=== PATIENT | male | born 2000 | race Caucasian/White ===

== ENCOUNTER 2024-10-28 18:25 | Emergency (ER) | payer OTHER, SELFPAY ==
[2024-10-28 18:26] VITALS: BP 121/66; PULSE 90; RESP 18; TEMP 36.2; O2SAT 100
--- NOTE | 2024-10-28 19:05 | RAD_ITS ---
PROCEDURE: FOOT MIN 3 VIEWS 10/28/2024 REASON FOR EXAM: LAC, BOTTOM OF FOOT TECHNIQUE: FOOT MIN 3 VIEWS COMPARISON: None. FINDINGS: Bones: No visible fracture. No suspicious bone lesion. Joints: Normal alignment. Joint spaces preserved. No arthropathic features. Soft tissues: Mildsoft tissue swelling along the dorsum of the foot. Other: There are two punctate radiopaque densities along the dorsum of the foot, visualized only on the lateral radiograph. RAD/Foot min 3 Views IMPRESSION: Two punctate radiopaque densities along the dorsum of the foot, visualized only on the lateral radiograph. Correlation with physical examination recommended. Reading Location: [id number]
--- NOTE | 2024-10-28 19:22 | EX.ED.DYSGE1 ---
HPI History of Present Illness Chief Complaint: Laceration Narrative Narrative: Patient is a 24-year-old male who has no known significant past medical history who presents to the emergency department the chief complaint of cut to the bottom of his left foot. Patient states that [place] he [place] and cut his foot on an unknown object. They noted that he had significant of blood in his sandal therefore he came here for further evaluation management. Per patient his last tetanus shot was updated about a year ago. Patient states that he has having foot pain but denies any other injuries. PFSH PFSH Home Medications ?Medication ?Instructions ?Recorded ?Last Taken ?Type clindamycin HCl 300 mg capsule 300 mg PO TID 7 days #21 caps 10/28/24 Unknown Rx (Cleocin HCl) Allergy/AdvReac Type Severity Reaction Status Date / Time No Known Allergies Allergy Verified 10/28/24 18:25 Social History Smoking Status: Never smoker ROS ROS ED ROS Narrative Neurological: Denies any numbness, weakness, tingling Musculoskeletal: Complains of left foot pain as noted above Skin: Complains of cut to the bottom of the left foot as noted above EXAM Physical Exam Narrative Exam Narrative: General: Patient was lying in bed rest comfortably did not appear to be acute distress Head: Atraumatic, normocephalic Eyes: PERRL bilaterally, EOMI by, no conjunctival injection noted Neck: Soft, supple, trachea midline Cardiovascular: Regular rate Extremities: DP pulses +2/4 in the bilateral lower extremities, +5/5 strength noted in the bilateral upper and lower extremities Neurological: Patient follow commands knew that he was at [facility] year is 2024 sensation grossly intact in the bilateral lower extremities Skin: Patient has a proximately 4-1/2 cm laceration to the plantar aspect of his left foot no active bleeding noted Const Vital Signs: 10/28/24 18:26 10/28/24 20:25 Temperature 97.2 F L Temperature Source Temporal Pulse Rate 90 70 Respiratory Rate 18 18 Blood Pressure 121/66 H 110/80 Blood Pressure Mean 84 90 Pulse Ox 100 98 Oxygen Delivery Method Room Air MDM MDM MDM Narrative Medical decision making narrative: Patient is a 24-year-old male who presented to the emergency department the chief complaint of laceration to the bottom of the left foot. On the differential diagnosis includes but not limited to foot laceration, retained foreign body, skin abrasion. Once workup is obtained reviewed he will be reevaluated. Patient be given 2 g Ancef morphine Zofran as well as IV fluids. Patient's foot x-ray reviewed by myself by radiology showed 2 punctate radiographic densities along the dorsum of the foot visualized only on the lateral radiograph correlation with physical examination recommended patient does not have any injury to the dorsal aspect of his foot the laceration is on the plantar aspect. Patient had a laceration repaired here in the emergency department see procedure note for separate details tolerated procedure well. He will be placed on oral clindamycin prescription will be sent to the pharmacy as he was given Ancef in the emergency department. He was advised to watch out for signs of infection and is advised to not soak this wound he is advised to not go any lakes or [place]. He will be given crutches to stay off the foot. He was encouraged to have the sutures removed in approximately 10 days by his primary care physician. He is agreeable spinal cord concerns answered he is discharged home in stable condition. Procedure note Procedure name: Laceration repair Indication: Reduce risk of infection Location: 4-1/2 cm simple laceration along the plantar aspect of left foot Preprocedure diagnosis: Laceration Postprocedure diagnosis: Repaired laceration Informed consent was obtained prior to procedure started. Procedure: The appropriate timeout was taken. The area was prepped and draped in usual sterile fashion. Local anesthesia was achieved using 7 cc of lidocaine 1% without epinephrine. Wound was copiously irrigated. 10 4-0 Ethilon interrupted sutures were placed. Estimated blood loss was less than 0.5 mL. Dressing was applied to the area and anticipatory guidance, as well as standard postprocedure care was explained. Return precautions are given. Patient tolerated procedure well without any complications. Follow-up visit for suture removal and evaluation of laceration. Radiography Diagnostic Testing: Clinical Impression(s) from Imaging Studies Foot X-Ray 10/28/24 19:05 IMPRESSION: Two punctate radiopaque densities along the dorsum of the foot, visualized only on the lateral radiograph. Correlation with physical examination recommended. Reading Location: [id number] Discharge Plan Triage Chief Complaint: Laceration ED Provider: Lance Moore Dx/Rx/DC Orders Clinical Impression: Laceration of foot, left Prescriptions: New clindamycin HCl [Cleocin HCl] 300 mg capsule 300 mg PO TID 7 Days Qty: 21 0RF Primary Care Provider: Merissa Hidalgo,Out of Referrals: Merissa Hidalgo,Out of [Primary Care Provider] - Activity Restrictions/Additional Instructions: Have your sutures removed by your primary care physician in approximately 7 to 10 days. Watch out for signs of infection. Do not soak the sutures no lakes no pools. Take antibiotics as prescribed. Return with worsening symptoms or concerns Print Language: [place] Disposition Disposition: Home, Self Care
--- OUTSIDE RECORDS SUMMARY | 2024-10-28 19:22 | XMS RPT_ITS | CCD ---
Author Organization [facility] Care Team Providers Care Wire Galvanizer Name Role Phone Jose Miguel Davison Primary Care Provider Unavailable Primary Care Provider UnavailLELA Cox Admitting Unavailable DONNIE SWAN Unavailable JUJU ROBLES Attending Unavailable Ibis Gao MD Primary Care Provider CATHY ORR Attending Unavailable IBIS GAO Primary Care Unavailable IBIS GAO Primary Care Unavailable IBIS GAO Primary Care Unavailable Medications Current Medications Medication Drug Class(es) Dates Sig (Normalized) Sig (Original) 24 hr amphetamine aspartate 5 mg / amphetamine sulfate 5 mg / dextroamphetamine saccharate 5 mg / dextroamphetamine sulfate 5 mg extended release oral capsule (5 sources) Central Nervous System Stimulant Start: 06-28-2023 take 1 capsule by mouth once daily in the morning, then take 1 capsule by mouth every twenty-four hours amphetamine-dext roamphetamine XR (Adderall XR) 20 MG 24 hr capsule Take 20 mg by mouth every morning. 0 06/28/2023 Active Start: 08-16-2021 End: 09-11-2021 take 1 capsule by mouth once daily amphetamine-dextroamphetamine XR (ADDERA LL XR) 25 mg 24 hr capsule Indications: ADHD (attention deficit hyperactivity disorder), combined type Take 1 capsule by mouth once daily for 30 days. Do not start before August 16, 2021. 30 capsule 0 08/16/2021 09/11/2021 Discontinued Start: 07-17-2021 End: 08-16-2021 take 1 capsule by mouth once daily amphetamine-dextroamphetamine XR (ADDERA LL XR) 20 mg 24 hr capsule Indications: ADHD (attention deficit hyperactivity disorder), combined type Take 1 capsule by mouth once daily for 30 days. 30 capsule 0 07/17/2021 08/16/2021 Active Comment on above: Take 1 capsule by [facility] once daily for 30 days. Take 1 capsule by [facility] once daily for 30 days. Do not start before August 16, 2021. cephalexin 500 mg oral capsule (4 sources) Cephalosporin Antibacterial Start: End: take 2 capsules by mouth every eight hours cephalexin (Keflex) 500 MG capsule Take 2 capsules (1,000 mg) by mouth in the morning and 2 capsules (1,000 mg) at noon and 2 capsules (1,000 mg) before bedtime. Do all this for 25 days. 150 capsule 0 09/14/2023 10/09/2023 Active Start: 09-14-2023 End: 09-14-2023 cephalexin (Keflex) capsule 1,000 mg mupirocin 0.02 mg/mg topical ointment (5 sources) RNA Synthetase Inhibitor Antibacterial Start: 08-21-2022 mupirocin (BACTROBAN) 2 % ointment Indications: Sunburn Apply 1 application to affected area three times daily. 30 g 08/21/2022 Active Comment on above: Apply 1 application to affected area three times daily. oxyCODONE hydrochloride 5 mg oral tablet (4 sources) Opioid Agonist Start: 09-14-2023 End: 09-17-2023 take 1 tablet by mouth every six hours as needed for pain oxyCODONE (Roxicodone) 5 MG immediate release tablet Indications: Tenosynovitis Take 1 tablet (5 mg) by mouth every 6 hours as needed for severe pain (7-10) for up to 3 days. 12 tablet 0 09/14/2023 09/17/2023 Active Start: 09-14-2023 End: 09-14-2023 take 1 tablet by mouth every six hours as needed for pain oxyCODONE (Roxicodone) immediate release tablet 2.5 mg polyethylene glycol 3350 15583 mg powder for oral solution (4 sources) Osmotic Laxative Start: 09-11-2023 End: 09-14-2023 take 17 g by mouth every twenty-four hours as needed polyethylene glycol, PEG, 3350 (Glycolax) 17 GM/SCOOP powder Take 17 g by mouth Daily as needed (constipation). 238 g 0 09/14/2023 Active sulfamethoxazole 800 mg / trimethoprim 160 mg oral tablet (1 source) Dihydrofolate Reductase Inhibitor Antibacterial, Sulfonamide Antimicrobial take 1 tablet by mouth twice daily sulfamethoxazole-tr imethoprim (BACTRIM DS) 800-160 mg per tablet Take 1 tablet by mouth two times a day. Active Completed/Discontinued Medications Medication Drug Class(es) Dates Sig (Normalized) Sig (Original) acetaminophen 500 mg oral tablet (4 sources) Start: 09-12-2023 End: 09-14-2023 take 1 tablet by mouth every eight hours acetaminophen (Tylenol) tablet 1,000 mg Start: 09-11-2023 End: 09-12-2023 take 1 tablet by mouth every six hours as needed for pain and fever 650 mg, Oral, Every 6 hours PRN, mild pain (1-3), fever, For temp greater than 100.4 F (38 C), Starting on 09/11/23 at 1909, Maximum dose of acetaminophen is 4000 mg from all sources in 24 hours. ampicillin-sulbactam (Unasyn) 3,000 mg in sodium chloride 0.9 % 100 mL IVPB (Add-Nazareth) (2 sources) Start: 09-11-2023 End: 09-11-2023 ampicillin-sulbactam (Unasyn) 3,000 mg in sodium chloride 0.9 % 100 mL IVPB (Add-Nazareth) dicyclomine hydrochloride 20 mg oral tablet (17 sources) Anticholinergic Start: 08-28-2021 take 1 tablet by mouth at bedtime dicyclomine (BENTYL) 20 mg tablet Indications: Abdominal pain, unspecified abdominal location , Nausea and vomiting, unspecified vomiting type Take 1 tablet by mouth before meals and at bedtime. 90 tablet 0 08/28/2021 Active Start: 05-29-2021 End: 08-28-2021 take 1 capsule by mouth at bedtime dicyclomine (BENTYL) 10 mg capsule Indications: Nausea and vomiting, unspecified vomiting type , Abdominal pain, unspecified abdominal location Take 1 capsule by mouth before meals and at bedtime. 90 capsule 0 05/29/2021 08/28/2021 Discontinued Comment on above: Take 1 capsule by mo uth before meals and at bedtime. Take 1 tablet by nirav th before meals and at bedtime. 0.4 ml enoxaparin sodium 100 mg/ml prefilled syringe (2 sources) Low Molecular Weight Heparin Start: End: inject 40 mg by subcutaneous injection every twenty-four hours 40 mg, SubCUTAneous, Every 24 hours scheduled (Daily), First dose on 09/11/23 at 2000, Indication of Use: Prophylaxis-DVT/PE, Indications: Prophylaxis of Venous Thromboembolism 2 ml fentaNYL 0.05 mg/ml injection (2 sources) Opioid Agonist Start: End: fentaNYL (Sublimaze) injection 50 mcg 1 ml HYDROmorphone hydrochloride 1 mg/ml cartridge (8 sources) Opioid Agonist Start: End: take 0.25 mg intravenously every eight hours as needed HYDROmorphone (Dilaudid) injection 0.25 mg Start: 09-11-2023 End: 09-13-2023 HYDROmorphone (Dilaudid) inj ection 0.5 mg ibuprofen 600 mg oral tablet (2 sources) Nonsteroidal Anti-inflammatory Drug Start: 09-12-2023 End: 09-14-2023 take 1 tablet by mouth every eight hours as needed for pain ibuprofen tablet 600 mg melatonin 10 mg oral capsule (4 sources) melatonin 10 mg cap Take by mouth. 0 Active Comment on above: Take by mouth. mirtazapine 15 mg oral tablet (18 sources) Start: 11-18-2021 take 1 tablet by mouth once daily at bedtime mirtazapine (REMERON) 15 mg tablet Indications: Chronic insomnia TAKE 1 TABLET BY MOUTH DAILY AT BEDTIME 30 tablet 0 11/18/2021 Active Start: 03-26-2021 End: 10-15-2021 take 1 tablet by mouth once daily at bedtime mirtazapine (REMERON) 15 mg tablet Indications: Chronic insomnia Take 1 tablet by mouth daily at bedtime. 30 tablet 0 10/15/2021 Active Comment on above: Take 1 tablet by nirav th daily at bedtime. TAKE 1 TABLET BY NIRAV TH DAILY AT BEDTIME 1 ml morphine sulfate 4 mg/ml cartridge (2 sources) Opioid Agonist Start: 09-11-19 End: 09-11-19 morphine injection 4 mg 1 ml naloxone hydrochloride 0.4 mg/ml injection (2 sources) Opioid Antagonist Start: 09-11-19 End: 09-14-19 naloxone (Narcan) injection 0.4 mg naproxen 500 mg oral tablet (4 sources) Nonsteroidal Anti-inflammatory Drug Start: 08-22-19 take 1 tablet by mouth twice daily at mealtime naproxen (NAPROSYN) 500 mg tablet Indications: Sunburn Take 1 tablet by mouth twice daily with meals. 30 tablet 1 08/21/2022 Active Comment on above: Take 1 tablet by nirav th twice daily with meals. 2 ml ondansetron 2 mg/ml injection (15 sources) Serotonin-3 Receptor Antagonist Start: 09-11-19 End: 09-11-19 ondansetron (Zofran) injection 4 mg Start: 09-11-2021 take 1 tablet by nirav th every eight hours as needed ondansetron orally disintegrating (ZOFRAN ODT) 4 mg disintegrating tablet Take 1 tablet by mouth every 8 hours as needed for nausea/vomiting. 30 tablet 0 09/11/2021 Active Comment on above: Take 1 tablet by nirav th every 8 hours as needed for nausea/vomiting. ondansetron ODT (Zofran-ODT) disintegrating tablet 4 mg (2 sources) Start: 2023 End: 2023 take 1 tablet by mouth every eight hours as needed for nausea and vomiting ondansetron ODT (Zofran-ODT) disintegrating tablet 4 mg piperacillin 3000 mg / tazobactam 375 mg injection (2 sources) Penicillin-class Antibacterial, beta Lactamase Inhibitor Start: 2023 End: 2023 take 3375 mg intravenously every eight hours piperacillin-tazoba ctam (Zosyn) IVPB 3,375 mg potassium chloride 20 meq powder for oral solution (2 sources) Start: 2023 End: 2023 potassium chloride (Klor-Con) packet 40 mEq Start: 09-13-2023 End: 09-13-2023 potassium chloride (Klor-Con ) packet 40 mEq Problems Active Problems Problem Classification Problem Date Documented Da te Episodic/Chronic Headache; including migraine (1 source) Headache; Translations: [Headache, unspecified headache type] Episodic Miscellaneous mental health disorders (2 sources) Chronic insomnia; Translations: [Psychophysiologic insomnia] Chronic Nutritional deficiencies (17 sources) Deficiency of macronutrients; Translations: [Unspecified severe protein-calorie malnutrition] Onset: 01-03-2021 01-03-2021 Chronic Other connective tissue disease (1 source) Pain in right hand; Translations: [Pain in right hand] Episodic Other connective tissue disease (6 sources) Tenosynovitis; Translations: [Synovitis and tenosynovitis, unspecified] Onset: 09-11-2023 09-11-2023 Episodic Other connective tissue disease (2 sources) Synovitis and tenosynovitis, unspecified; Translations: [Synovitis and tenosynovitis, unspecified] Onset: 09-11-2023 Episodic Other inflammatory condition of skin (1 source) Solar erythema; Translations: [Sunburn, unspecified] Episodic Other injuries and conditions due to external causes (1 source) Injury of head; Translations: [Unspecified injury of head, initial encounter] Episodic Other injuries and conditions due to external causes (1 source) Injury of right hand; Translations: [Unspecified injury of right wrist, hand and finger(s), initial encounter] Episodic Other nutritional; endocrine; and metabolic disorders (17 sources) Hyperbilirubinemia; Translations: [Other disorders of bilirubin metabolism] Onset: 01-02-2021 01-02-2021 Chronic Residual codes; unclassified (4 sources) Other specified health status; Translations: [Other specified conditions influencing health status] Onset: 09-11-2023 09-11-2023 Episodic Unclassified (1 source) OPENED IN ERROR Past or Other Problems Problem Classification Problem Date Documented Da te Episodic/Chronic Abdominal pain (18 sources) Epigastric pain; Translations: [Epigastric pain] Onset: 11-22-2020 11-22-2020 Episodic Fracture of upper limb (13 sources) Closed fracture of neck of fifth metacarpal bone; Translations: [Nondisplaced fracture of neck of fifth metacarpal bone, right hand, initial encounter for closed fracture] Onset: 10-22-2021 Episodic Gastritis and duodenitis (17 sources) Gastritis; Translations: [Gastritis, unspecified, without bleeding] Onset: 01-03-2021 01-03-2021 Episodic Heart valve disorders (17 sources) Heart murmur; Translations: [Cardiac murmur, unspecified] Onset: 11-06-2010 01-12-2020 Episodic Nausea and vomiting (19 sources) Nausea and vomiting; Translations: [Nausea with vomiting, unspecified] Onset: 01-03-2021 01-03-2021 Episodic Other connective tissue disease (1 source) Hand pain Onset: 12-19-2023 Episodic Other eye disorders (5 sources) Convergence insufficiency; Translations: [Convergence insufficiency] Onset: 05-09-2019 08-21-2022 Episodic Skin and subcutaneous tissue infections (5 sources) Cellulitis of finger; Translations: [Cellulitis of right finger] Onset: 09-10-2023 09-11-2023 Episodic Results Test Name Value Interpretation Reference Range Facility XR CHEST 2V FRONTAL/LATon XR CHEST 2V FRONTAL/LAT * * *Final Report* * * DATE OF EXAM: May 04 2024 1:11PM [id number] - XR CHEST 2V FRONTAL/LAT / PROCEDURE REASON: R05.1 * * * * Physician Interpretation * * * * EXAMINATION: CHEST RADIOGRAPH (2 VIEW FRONTAL and LATERAL) CLINICAL HISTORY: Midsternal chest pain. MQ: XC2_6 EXAM DATE/TIME: 05/04/2024 1:11 PM COMPARISON: No relevant prior studies available. RESULT: Lines, tubes, and devices: None. Lungs and pleura: No consolidation. No lung mass. No pleural effusion. No pneumothorax. Cardiomediastinal silhouette: Normal cardiomediastinal silhouette. Bones and soft tissues: Unremarkable. IMPRESSION: No acute radiographic abnormality. New Product Trainer: FORREST Transcribe Date/Time: May 04 2024 1:24P Dictated by : ANNE MARIE GIRON MD This examination was interpreted and the report reviewed and electronically signed by: ANNE MARIE GIRON MD on May 04 2024 1:26PM EST [id number] Normal [facility] XR Chest PA and Lateralon IMPRESSION: No acute radiographic abnormality. New Product Trainer: FORREST Transcribe Date/Time: May 04 2024 1:24P Dictated by : ANNE MARIE GIRON MD This examination was interpreted and the report reviewed and electronically signed by: ANNE MARIE GIRON MD on May 04 2024 1:26PM EST [facility] * * *Final Report* * * DATE OF EXAM: May 04 2024 1:11PM [id number] - XR CHEST 2V FRONTAL/LAT / PROCEDURE REASON: R05.1 * * * * Physician Interpretation * * * * EXAMINATION: CHEST RADIOGRAPH (2 VIEW FRONTAL & LATERAL) CLINICAL HISTORY: Midsternal chest pain. MQ: XC2_6 EXAM DATE/TIME: 05/04/2024 1:11 PM COMPARISON: No relevant prior studies available. RESULT: Lines, tubes, and devices: None. Lungs and pleura: No consolidation. No lung mass. No pleural effusion. No pneumothorax. Cardiomediastinal silhouette: Normal cardiomediastinal silhouette. Bones and soft tissues: Unremarkable. [facility] Provider, Ray Hollins [facility] - 05/04/2024 * * *Final Report* * * DATE OF EXAM: May 04 2024 1:11PM [id number] - XR CHEST 2V FRONTAL/LAT / PROCEDURE REASON: R05.1 * * * * Physician Interpretation * * * * EXAMINATION: CHEST RADIOGRAPH (2 VIEW FRONTAL & LATERAL) CLINICAL HISTORY: Midsternal chest pain. MQ: XC2_6 EXAM DATE/TIME: 05/04/2024 1:11 PM COMPARISON: No relevant prior studies available. RESULT: Lines, tubes, and devices: None. Lungs and pleura: No consolidation. No lung mass. No pleural effusion. No pneumothorax. Cardiomediastinal silhouette: Normal cardiomediastinal silhouette. Bones and soft tissues: Unremarkable. IMPRESSION IMPRESSION: No acute radiographic abnormality. New Product Trainer: PSCB Transcribe Date/Time: May 04 2024 1:24P Dictated by : ANNE MARIE GIRON MD This examination was interpreted and the report reviewed and electronically signed by: ANNE MARIE GIRON MD on May 04 2024 1:26PM EST [facility] Radiology Study observation (narrative) [facility] XR Chest PA and LateralOrder ed By: Cc Provider on 05-04-2024 [facility] ED NOTEon 12-19-2023 ED NOTE HNO ID: [id number] Author: EMILIANO MICHEL RN Service: Emergency Medicine Author Type: Registered Nurse Type: ED Notes Filed: 12/19/2023 13:51 Note Text: XR notified Normal [facility] ED PROV NOTEon 12-19-2023 ED PROV NOTE HNO ID: [id number] Author: PATY SANDOVAL APRN.HOLGER Service: Emergency Medicine Author Type: Nurse Practitioner Type: ED Provider Notes Filed: 12/20/2023 21:06 Note Text: ED Provider Note Patient Name: Christian Danielson : 2000 SERVICE DATE: 12/19/23 History Patient presents with: Hand Pain: Pt arrives to triage, reports he tripped olvin dog and landed on right hand. Pt c/o wrist pain and thumb pain. Patient is a 23-year-old male presented to ED with complaints of right hand pain. He states he tripped over his small dog and landed backwards with a closed fist into the ground. He complains of wrist and thumb pain. He notes swelling. Hurts with range of motion. No prior treatment. He is ambidextrous. 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 pylori infection No date: Insomnia PAST SURGICAL HISTORY No date: TONSILLECTOMY HX FAMILY HISTORY Adopted: Yes Problem Relation Age of Onset No Known Problems Mother No Known Problems Father No Known Problems Brother No Known Problems Brother No Known Problems Maternal Grandmother No Known Problems Maternal Grandfather No Known Problems Paternal Grandmother No Known Problems Paternal Grandfather Social History Tobacco Use Smoking status: Never Smokeless tobacco: Never Vaping Use Vaping status: Former Substances: Nicotine Devices: Disposable Substance and Sexual Activity Alcohol use: Not Currently Drug use: Not Currently Types: Marijuana Comment: stopped 04/24/21 Sexual activity: Not Currently ALLERGIES No Known Allergies Review of Systems All other systems reviewed and are negative. Physical Exam Vitals [12/19/23 1321] BP Pulse Temp Temp src Resp SpO2 Weight Height 131/80 (!) 108 36.8 ?C (98.2 ?F) Oral 20 99 % 72.6 kg (160 lb) 1.88 m (6' 2) Physical Exam Vitals and nursing note reviewed. Constitutional: Appearance: Normal appearance. HENT: Head: Normocephalic and atraumatic. Nose: Nose normal. Mouth/Throat: Mouth: Mucous membranes are moist. Eyes: General: No scleral icterus. Cardiovascular: Rate and Rhythm: Normal rate. Pulmonary: Effort: Pulmonary effort is normal. No respiratory distress. Abdominal: General: There is no distension. Musculoskeletal: General: Normal range of motion. Cervical back: Normal range of motion and neck supple. Comments: Soft tissue swelling with mild tenderness to the proximal fourth and fifth carpals. There is no scaphoid tenderness. Normal pronation and supination. Strong radial pulse. Skin: General: Skin is warm and dry. Capillary Refill: Capillary refill takes less than 2 seconds. Neurological: Mental Status: He is alert and oriented to person, place, and time. Psychiatric: Mood and Affect: Mood normal. Diagnostic Testing ED Labs Ordered and Reviewed - No data to display Procedures ED Course / Clinical Impression ED Course as of 12/19/23 1443 Paty Sandoval's Documentation Sun Dec 19, 2023 1436 XR HAND GENERAL 3V PA/LAT/OBL RT FINDINGS: Since the previous exam, there is amputation at the tip of the second digit. This is of uncertain age and clinical correlation is suggested. Also at the distal phalanx of the second digit, there is a thin vertical lucency which is possibly a nondisplaced fracture or accentuated trabecular lines. No fractures or dislocations are seen otherwise. Clinical Impressions as of 12/19/23 1443 Sprain of right wrist, initial encounter MDM / Disposition / Plan Patient is a 23-year-old male presenting here with right hand and wrist pain. Had a fall injuring the hand. Has some soft tissue swelling at the base of the fourth and fifth met of carpals. Otherwise an atraumatic exam. X-rays are negative for any acute fractures or dislocations in this area. There is some areas of erosive changes to the tip of the second finger. Patient had a prior infection here that required surgery. SIGNATURE: Paty Sandoval, RAIL SWITCH OPERATOR.PEN MAKER - PATY SANDOVAL 12/20/23 2106 Normal [facility] XR HAND 3V PA/LAT/OBL RTon 0 12-19-2023 XR HAND 3V PA/LAT/OBL RT * * *Final Report* * * DATE OF EXAM: Dec 19 2023 1:56PM [id number] - XR HAND 3V PA/LAT/OBL RT / PROCEDURE REASON: Trauma * * * * Physician Interpretation * * * * EXAM TITLE: XR HAND 3V PA/LAT/OBL RT, XR WRIST 4V PA/LAT/OBL/SCAPH RT DATE: 12/19/2023 2:24 PM INDICATION: Trauma with hand and wrist pain COMPARISON: 11/19/2021 FINDINGS: Since the previous exam, there is amputation at the tip of the second digit. This is of uncertain age and clinical correlation is suggested. Also at the distal phalanx of the second digit, there is a thin vertical lucency which is possibly a nondisplaced fracture or accentuated trabecular lines. No fractures or dislocations are seen otherwise. IMPRESSION: Second digit changes which are of unknown age but correlation with clinical information is suggested. New Product Trainer: FORREST Transcribe Date/Time: Dec 19 2023 2:24P Dictated by : TIANA MCCOY MD This examination was interpreted and the report reviewed and electronically signed by: TIANA MCCOY MD on Dec 19 2023 2:26PM EST [id number] Normal [facility] XR WRIST 4V PA/LAT/OBL/SCAPH RTon 12-19-2023 XR WRIST 4V PA/LAT/OBL/SCAPH RT * * *Final Report* * * DATE OF EXAM: Dec 19 2023 1:56PM [id number] - XR WRIST 4V PA/LAT/OBL/SCAPH RT / PROCEDURE REASON: Trauma * * * * Physician Interpretation * * * * EXAM TITLE: XR HAND 3V PA/LAT/OBL RT, XR WRIST 4V PA/LAT/OBL/SCAPH RT DATE: 12/19/2023 2:24 PM INDICATION: Trauma with hand and wrist pain COMPARISON: 11/19/2021 FINDINGS: Since the previous exam, there is amputation at the tip of the second digit. This is of uncertain age and clinical correlation is suggested. Also at the distal phalanx of the second digit, there is a thin vertical lucency which is possibly a nondisplaced fracture or accentuated trabecular lines. No fractures or dislocations are seen otherwise. IMPRESSION: Second digit changes which are of unknown age but correlation with clinical information is suggested. New Product Trainer: FORREST Transcribe Date/Time: Dec 19 2023 2:24P Dictated by : TIANA MCCOY MD This examination was interpreted and the report reviewed and electronically signed by: TIANA MCCOY MD on Dec 19 2023 2:26PM EST [id number] Normal [facility] BASIC METABOLIC PANELon 05-1 Anion gap [Moles/Vol] 12 mmol/L Normal 3-13 [facility] Comment on above: Performed By: #### L AB15 ####Product Development: MARCELINA GIBBS ([id number])[facility])[address] [place] [address] Calcium [Mass/Vol] 9.7 mg/dL Normal 8.4-10.4 [facility] Comment on above: Performed By: #### L AB15 ####Product Development: MARCELINA GIBBS ([id number])[facility] ([facility])[address] [place] [address] Chloride [Moles/Vol] 105 mmol/L Normal 98-107 [facility] Comment on above: Performed By: #### L AB15 ####Product Development: MARCELINA GIBBS ([id number])[facility] ([facility])[address] [place] [address] CO2 [Moles/Vol] 22 mmol/L Normal 22-30 [facility] Comment on above: Performed By: #### L AB15 ####Product Development: MARCELINA GIBBS ([id number])[facility])[address] [place] [address] Creatinine [Mass/Vol] 0.93 mg/dL Normal 0.66-1.25 [facility] Comment on above: Performed By: #### L AB15 ####Product Development: MARCELINA GIBBS ([id number])[facility])[address] [place] [address] GLOMERULAR FILTRATION RATE ML/MIN/1.73 SQ M.PREDICTED >90.0 Normal >60.0 [facility] Comment on above: Result Comment: Calc ulation based on the Chronic Kidney Disease Epidemiology Collaboration (CKD-EPI) equation refit without adjustment for race Performed By: #### L AB15 ####Product Development: MARCELINA GIBBS ([id number])[facility] ([facility])[address] [place] [address] Glucose [Mass/Vol] 87 mg/dL Normal 70-100 [facility] Comment on above: Performed By: #### L AB15 ####Product Development: MARCELINA GIBBS ([id number])[facility] ([facility])[address] [place] [address] Potassium [Moles/Vol] 4.3 mmol/L Normal 3.5-5.1 [facility] Comment on above: Performed By: #### L AB15 ####Product Development: MARCELINA GIBBS ([id number])[facility] ([facility])[address] [place] [address] Sodium [Moles/Vol] 139 mmol/L Normal 135-145 [facility] Comment on above: Performed By: #### L AB15 ####Product Development: MARCELINA GIBBS ([id number])[facility] ([facility])[address] [place] [address] Urea nitrogen [Mass/Vol] 14 mg/dL Normal 9-20 [facility] Comment on above: Performed By: #### L [id number] ####Product Development: MARCELINA GIBBS ([id number])[facility] ([facility])[address] [place] [address] Basic metabolic 1998 panelon 09-14-2023 Anion gap [Moles/Vol] 12 mmol/L 3 - 13 mmol/L [facility] Calcium [Mass/Vol] 9.7 mg/dL 8.4 - 10. 4 mg/dL [facility] Chloride [Moles/Vol] 105 mmol/L 98 - 10 7 mmol/L [facility] CO2 [Moles/Vol] 22 mmol/L 22 - 30 mmol/L [facility] Creatinine [Mass/Vol] 0.93 mg/dL 0.66 - 1.25 mg/dL [facility] GFR/1.73 sq M.predicted MDRD (S/P/Bld) [Vol rate/Area] - PINF [facility] Comment on above: Calculation based on the Chronic Kidney Disease Epidemiology Collaboration (CKD-EPI) equation refit without adjustment for race Glucose [Mass/Vol] 87 mg/dL 70 - 100 mg/dL [facility] Interpretation and review of laboratory results Normal [facility] Potassium [Moles/Vol] 4.3 mmol/L 3.5 - 5.1 mmol/L [facility] Sodium [Moles/Vol] 139 mmol/L 135 - 145 mmol/L [facility] Urea nitrogen [Mass/Vol] 14 mg/dL 9 - 20 mg/dL [facility] CARECOORDon 09-14-2023 CARECODURHAM SW consult submitted for IV antibiotics. SW consulted w /TCC who manages this issue, no concerns for SW involvement reported at this time. Normal [facility] CBC W Auto Differential pane l (Bld)on 09-14-2023 Basophils (Bld) [#/Vol] 0.1 10*3/uL 0.0 - 0.2 10*3/uL [facility] Basophils/100 WBC (Bld) 1.2 % 0.0 - 2.0 % [facility] Eosinophils (Bld) [#/Vol] 0.2 10*3/uL 0.0 - 0.5 10*3/uL [facility] Eosinophils/100 WBC (Bld) 2.8 % 0.0 - 6.0 % [facility] Erythrocyte distribution width (RBC) [Ratio] 12.9 % 11.5 - 15.0 % [facility] Hematocrit (Bld) [Volume fraction] 38.2 % Low 40.0 - 52.0 % [facility] Hemoglobin (Bld) [Mass/Vol] 13.3 g/dL 13.0 - 18.0 g/dL [facility] Immature granulocytes (Bld) [#/Vol] 0.0 10*3/uL NINF - 0.1 10*3/uL [facility] Immature granulocytes/100 WBC (Bld) 0.0 % 0.0 - 2.0 % [facility] Interpretation and review of laboratory results Abnormal [facility] Lymphocytes (Bld) [#/Vol] 2.3 10*3/uL 1.0 - 4.3 10*3/uL [facility] Lymphocytes/100 WBC (Bld) 38.3 % 15.0 - 45.0 % [facility] MCH (RBC) [Entitic mass] 30.2 pg 26.0 - 34.0 pg [facility] MCHC (RBC) [Mass/Vol] 34.8 % 30.5 - 36.0 % [facility] MCV (RBC) [Entitic vol] 86.6 fL 77.0 - 99.0 fL [facility] Monocytes (Bld) [#/Vol] 0.6 10*3/uL 0.0 - 0.9 10*3/uL [facility] Monocytes/100 WBC (Bld) 10.4 % 5.0 - 13.0 % [facility] Neutrophils (Bld) [#/Vol] 2.9 10*3/uL 1.8 - 7.5 10*3/uL [facility] Neutrophils/100 WBC (Bld) 47.3 % 38.0 - 82.0 % [facility] Nucleated RBC/100 WBC (Bld) [Ratio] 0.0 % [facility] Platelet mean volume (Bld) [Entitic vol] 11.6 fL 9.0 - 12.7 fL [facility] Platelets (Bld) [#/Vol] 246 10*3/uL 140 - 440 10*3/uL [facility] RBC (Bld) [#/Vol] 4.41 10*6/uL 4.40 - 5.9 0 10*6/uL [facility] WBC (Bld) [#/Vol] 6.0 10*3/uL 3.6 - 10.7 10*3/uL [facility] CBC WITH AUTO DIFFERENTIALon 09-14-2023 Basophils (Bld) [#/Vol] 0.1 10*3/uL Normal 0.0-0.2 [facility] Comment on above: Performed By: #### L [id number] ####Product Development: MARCELINA GIBBS ([id number])[address] Basophils/100 WBC (Bld) 1.2 % Normal 0.0-2.0 [facility] Comment on above: Performed By: #### L [id number] ####Product Development: MARCELINA GIBSB ([id number])[facility] Eosinophils (Bld) [#/Vol] 0.2 10*3/uL Normal 0.0-0.5 [facility] Comment on above: Performed By: #### L [id number] ####Product Development: MARCELINA GIBBS ([id number])[facility])[address] [place] [address] Eosinophils/100 WBC (Bld) 2.8 % Normal 0.0-6.0 [facility] Comment on above: Performed By: #### L [id number] ####Product Development: MARCELINA GIBBS ([id number])[address] Erythrocyte distribution width (RBC) [Ratio] 12.9 % Normal 11.5-15.0 [facility] Comment on above: Performed By: #### L [id number] ####Product Development: MARCELINA GIBBS ([id number])[address] Hematocrit (Bld) [Volume fraction] 38.2 % Low 40.0-52.0 [facility] Comment on above: Performed By: #### L [id number] ####Product Development: MARCELINA GIBBS ([id number])[address] Hemoglobin (Bld) [Mass/Vol] 13.3 g/dL Normal 13.0-18.0 [facility] Comment on above: Performed By: #### L [id number] ####Product Development: MARCELINA GIBBS ([id number])[facility])[address] [place] [address] IMMATURE GRANS % 0.0 % Normal 0.0-2.0 [facility] Comment on above: Performed By: #### L [id number] ####Product Development: MARCELINA GIBBS ([id number])[address] IMMATURE GRANS ABSOLUTE 0.0 10*3/uL Normal <0.1 [facility] Comment on above: Performed By: #### L [id number] ####Product Development: MARCELINA GIBBS ([id number])[facility])[address] [place] [address] Lymphocytes (Bld) [#/Vol] 2.3 10*3/uL Normal 1.0-4.3 [facility] Comment on above: Performed By: #### L [id number] ####Product Development: MARCELINA GIBBS ([id number])[facility])[address] [place] [address] Lymphocytes/100 WBC (Bld) 38.3 % Normal 15.0-45.0 [facility] Comment on above: Performed By: #### L [id number] ####Product Development: MARCELINA GIBBS ([id number])[address] MCH (RBC) [Entitic mass] 30.2 pg Normal 26.0-34.0 [facility] Comment on above: Performed By: #### L [id number] ####Product Development: MARCELINA GIBBS ([id number])[address] MCHC 34.8 % Normal 30.5-36.0 [facility] Comment on above: Performed By: #### L [id number] ####Product Development: MARCELINA GIBBS ([id number])[facility])[address] [place] [address] MCV (RBC) [Entitic vol] 86.6 fL Normal 77.0-99.0 [facility] Comment on above: Performed By: #### L [id number] ####Product Development: MARCELINA GIBBS ([id number])[address] Monocytes (Bld) [#/Vol] 0.6 10*3/uL Normal 0.0-0.9 [facility] Comment on above: Performed By: #### L [id number] ####Product Development: MARCELINA GIBBS ([id number])[facility] ([facility])[address] [place] [address] Monocytes/100 WBC (Bld) 10.4 % Normal 5.0-13.0 [facility] Comment on above: Performed By: #### L [id number] ####Product Development: MARCELINA GIBBS ([id number])[facility] ([facility])[address] [place] [address] NEUTROPHILS ABSOLUTE 2.9 10*3/uL Normal 1.8-7.5 [facility] Comment on above: Performed By: #### L [id number] ####Product Development: MARCELINA GIBBS ([id number])[facility] ([facility])[address] [place] [address] Neutrophils/100 WBC (Bld) 47.3 % Normal 38.0-82.0 [facility] Comment on above: Performed By: #### L [id number] ####Product Development: MARCELINA GIBBS ([id number])[facility] ([facility])[address] [place] [address] NRBC 0.0 /100 WBCs Normal 0.0-2.[address] [facility] Comment on above: Performed By: #### L [id number] ####Product Development: MARCELINA GIBBS ([id number])[facility] ([facility])[address] [place] [address] Platelet mean volume (Bld) [Entitic vol] 11.6 fL Normal 9.0-12.7 [facility] Comment on above: Performed By: #### L [id number] ####Product Development: MARCELINA GIBBS ([id number])[facility] ([facility])[address] [place] [address] [place] Platelets (Bld) [#/Vol] 246 10*3/uL Normal 140-440 [facility] Comment on above: Performed By: #### L [id number] ####Product Development: MARCELINA GIBBS ([id number])[facility] [address] RBC (Bld) [#/Vol] 4.41 10*6/uL Normal 4.40-5.90 [facility] Comment on above: Performed By: #### L [id number] ####Product Development: MARCELINA GIBBS ([id number])[facility])[address] [place] [address] WBC (Bld) [#/Vol] 6.0 10*3/uL Normal 3.6-10.7 [facility] Comment on above: Performed By: #### L [id number] ####Product Development: MARCELINA GIBBS ([id number])[address] Progress Noteon 09-14-2023 Progress Note Vancomycin therapy has been discontinued by KURT Gonzalez CNP on 09/14/23. Thank you for the consult. Pharmacy signing off for vancomycin dosing. Bravo Quispe ed, PharmD. Date: 09/14/23 Time: 10:54 AM Normal [facility] Progress Note - Attestation signed by Juju Robles DO at 09/14/2023 5:06 PM I saw and evaluated the patient. I agree with the findings and plan of care as documented in the resident's note, except as noted in Green text. Patient seen and examined personally during bedside teaching rounds (Date of Service: 09/14/23) -discharge today -outpt PCP is Dr. Ibis Gao. Reviewed discharge instructions, had ID office card at bedside for follow up with ID 7AM-5PM: contact resident on [facility] Med D (find by hovering over attending's name on left side of patient's chart) 5PM-7AM: contact AI3 res Med Team Progress Note Christian Danielson : 2000(23 y.o.) Date: September 14, 2023 Med Team: D Attending: Dr. Robles Chief Complaint: hand pain Subjective: - No acute events overnight. - Currently, patient sitting up in bed soaking hand. Patient's father is at bedside. States his pain is an 8-9/10 during soaking hand. However, states otherwise pain well controlled. Decrease in pain regimen was tolerable yesterday. Discussed ok for discharge pending antibiotic recs from ID. Had a BM yesterday after miralax. PRN meds used in last 24hrs: IV dilaudid 0.25mg x1, ibuprofen 600mg x1, oxycodone 5mg x2, miralax Review of Systems Constitutional: Negative for appetite change, chills and fever. Respiratory: Negative for shortness of breath. Cardiovascular: Negative for chest pain. Gastrointestinal: Negative for abdominal pain, constipation, diarrhea, nausea and vomiting. Skin: Positive for wound (and pain). Psychiatric/Behaviora l: Negative for agitation and confusion. Scheduled Meds:acetaminophen, 1,000 mg, Oral, q8h enoxaparin, 40 mg, SubCUTAneous, Daily piperacillin-tazobact am, 3,375 mg, IntraVENous, q8h vancomycin, 1,250 mg, IntraVENous, q12h Continuous Infusions: Objective: BP 119/68 (BP Location: Left arm, Patient Position: Lying) Pulse 51 Temp 36.7 ?C (98 ?F) (Temporal) Resp 12 Ht 6' 2 (1.88 m) Wt 170 lb (77.1 kg) SpO2 99% BMI 21.83 kg/m? Physical Exam Vitals and nursing note reviewed. Constitutional: Appearance: Normal appearance. He is not ill-appearing. HENT: Head: Normocephalic and atraumatic. Mouth/Throat: Mouth: Mucous membranes are moist. Eyes: Conjunctiva/sclera: Conjunctivae normal. Pupils: Pupils are equal, round, and reactive to light. Cardiovascular: Rate and Rhythm: Normal rate and regular rhythm. Pulses: Normal pulses. Heart sounds: Normal heart sounds. Pulmonary: Effort: Pulmonary effort is normal. No respiratory distress. Breath sounds: Normal breath sounds. Abdominal: General: Bowel sounds are normal. There is no distension. Palpations: Abdomen is soft. Tenderness: There is no abdominal tenderness. Musculoskeletal: General: Tenderness (R hand) present. Right lower leg: No edema. Left lower leg: No edema. Comments: Incision on R palm and digit clean with dried blood. Neurovascularly intact. TTP Skin: General: Skin is warm and dry. Neurological: General: No focal deficit present. Mental Status: He is alert and oriented to person, place, and time. [facility] within last 24 hours Auto WBC Date Value Ref Range Status 09/14/2023 6.0 3.6 - 10.7 10*3/uL Final Hemoglobin Date Value Ref Range Status 09/14/2023 13.3 13.0 - 18.0 g/dL Final Hematocrit Date Value Ref Range Status 09/14/2023 38.2 (L) 40.0 - 52.0 % Final Platelets Date Value Ref Range Status 09/14/2023 246 140 - 440 10*3/uL Final MCV Date Value Ref Range Status 09/14/2023 86.6 77.0 - 99.0 fL Final SODIUM Date Value Ref Range Status 09/14/2023 139 135 - 145 mmol/L Final POTASSIUM Date Value Ref Range Status 09/14/2023 4.3 3.5 - 5.1 mmol/L Final CHLORIDE Date Value Ref Range Status 09/14/2023 105 98 - 107 mmol/L Final CARBON DIOXIDE Date Value Ref Range Status 09/14/2023 22 22 - 30 mmol/L Final UREA NITROGEN Date Value Ref Range Status 09/14/2023 14 9 - 20 mg/dL Final CREATININE Date Value Ref Range Status 09/14/2023 0.93 0.66 - 1.25 mg/dL Final GLUCOSE Date Value Ref Range Status 09/14/2023 87 70 - 100 mg/dL Final CALCIUM Date Value Ref Range Status 09/14/2023 9.7 8.4 - 10.4 mg/dL Final No results found for: AST, ALT, PROT, BILITOT, ALKPHOS, INR, APTT, LIPASE No results found for: CKTOTAL, CKMB, TROPONINI No results found for: PROCAL, CHOL, TRIG, HDL, TSH, VITD25, HGBA1C, VANCOTROUGH Assessment and Plan: R index finger suppurative flexor tenosynovitis, s/p I&D -XR hand: no acute osseus process -wound gram stain: rare gram + cocci in clusters -wound culture: few MSSA Plan -orthopedic surgery signed off 09/12 -s/p OR with orthope (more content not included)... Normal [facility] BASIC METABOLIC PANELon 05- Anion gap [Moles/Vol] 6 mmol/L Normal - [facility] Comment on above: Performed By: #### L [id number] ####Product Development: MARCELINA GIBBS ([id number])[address] Calcium [Mass/Vol] 8.9 mg/dL Normal 8.4-10.4 [facility] Comment on above: Performed By: #### L [id number] ####Product Development: MARCELINA GIBBS ([id number])[facility])[address] [place] [address] Chloride [Moles/Vol] 103 mmol/L Normal 98-107 [facility] Comment on above: Performed By: #### L [id number] ####Product Development: MARCELINA GIBBS ([id number])[facility])[address] [place] [address] CO2 [Moles/Vol] 25 mmol/L Normal 22-30 [facility] Comment on above: Performed By: #### L [id number] ####Product Development: MARCELINA [id number])[facility])[address] [place] [address] Creatinine [Mass/Vol] 1.00 mg/dL Normal 0.66-1.25 [facility] Comment on above: Performed By: #### L [id number] ####Product Development: MARCELINA [id number])[facility])[address] [place] [address] GLOMERULAR FILTRATION RATE ML/MIN/1.73 SQ M.PREDICTED >90.0 Normal >60.0 [facility] Comment on above: Result Comment: Calc ulation based on the Chronic Kidney Disease Epidemiology Collaboration (CKD-EPI) equation refit without adjustment for race Performed By: #### L [id number] ####Product Development: MARCELINA GIBBS ([id number])[facility] ([facility])[address] [place] [address] Glucose [Mass/Vol] 111 mg/dL High 70-100 [facility] Comment on above: Performed By: #### L AB15 ####Product Development: MARCELINA GIBBS ([id number])[facility])[address] [place] [address] Potassium [Moles/Vol] 3.4 mmol/L Low 3.5-5.1 [facility] Comment on above: Performed By: #### L AB15 ####Product Development: MARCELINA GIBBS ([id number])[facility] ([facility])[address] [place] [address] Sodium [Moles/Vol] 134 mmol/L Low 135-145 [facility] Comment on above: Performed By: #### L AB15 ####Product Development: MARCELINA GIBBS ([id number])[facility])[address] [place] [address] Urea nitrogen [Mass/Vol] 14 mg/dL Normal 9-20 [facility] Comment on above: Performed By: #### L AB15 ####Product Development: MARCELINA GIBBS ([id number])[facility])[address] [place] [address] Basic metabolic 1998 panelon 09-13-2023 Anion gap [Moles/Vol] 6 mmol/L 3 - 13 mmol/L [facility] Calcium [Mass/Vol] 8.9 mg/dL 8.4 - 10. 4 mg/dL [facility] Chloride [Moles/Vol] 103 mmol/L 98 - 10 7 mmol/L [facility] CO2 [Moles/Vol] 25 mmol/L 22 - 30 mmol/L [facility] Creatinine [Mass/Vol] 1.00 mg/dL 0.66 - 1.25 mg/dL [facility] GFR/1.73 sq M.predicted MDRD (S/P/Bld) [Vol rate/Area] - PINF [facility] Comment on above: Calculation based on the Chronic Kidney Disease Epidemiology Collaboration (CKD-EPI) equation refit without adjustment for race Glucose [Mass/Vol] 111 mg/dL High 70 - 100 mg/dL [facility] Interpretation and review of laboratory results Abnormal [facility] Potassium [Moles/Vol] 3.4 mmol/L Low 3.5 - 5.1 mmol/L [facility] Sodium [Moles/Vol] 134 mmol/L Low 135 - 145 mmol/L [facility] Urea nitrogen [Mass/Vol] 14 mg/dL 9 - 20 mg/dL [facility] CARECOORDon 09-13-[address] [facility] Initial Assessment Date: 09/13/2023 Patient Name: Christian Danielson : 2000 Patient Information Source of Information: Patient Cognition/Language: WFL - Within Functional Limits Permission given to speak with patient medical billing representative[facility] as indicated: Confirmation of Payer with patient/family: Yes Payer Name: [employer] : No Confirmation of Primary Care Physician: Confirmed PCP Name: Dr Janice Matthews Seen in last 2 years?: Yes Primary Caregiver: Self If assistance needed, confirmed caregiver ready, willing and able to care for patient at discharge: Confirmed with: Living Arrangements Current Residence: House Number of Floors 1 Number of Entry Steps: Bed/Bath Levels: Both first floor Facility: Facility Name: Plan to Return: Yes Lives with: Parent Support Systems: Parent, Friends/neighbors Activities of Daily Living Ambulation: Independent Bathing/Dressing: Independent Elimination/Continenc e/Toileting: Independent Feeding: Independent Who Assists with Activities of Daily Living: Instrumental Activities of Daily Living Prescription Coverage: Yes Pharmacy Used: [address] Medication Management: Independent Transportation/Shoppi ng: Independent Transportation Mode: Car Needs Assistance with Transportation at Discharge: No Meal Preparation: Independent Laundry/Cleaning: Independent Finances/Bill Paying: Independent Communication: Independent Types of Care Services/Equipment Utilized Care Services: Dialysis Type: NA Durable Medical Equipment: Patient's Goal/Discharge Plan Patient expects to be discharged to: home with parents Discharge Planning Actions: Continue to follow Patient's Choice Rights and [employer] and Collaborative Relationships Disclosed as Indicated for Post-Acute Care: Interdisciplinary Team Engagement: Other (Comment) (ID, wound care) Social Work Referral for: Additional Information: 23 year old male admitted to , receiving IV zosyn and vancomycin for Tenosynovitis. This TCC met with patient at bedside and introduced self and role. He lives with his parents, and DCP is to return home. Consults to ID and Wound Care. No transportation needs. Patient has PCP, and insurance for medications. No DC needs identified. TCC will continue to follow. Joanie Conklin RN Normal [facility] CBC W Auto Differential pane l (Bld)on 09-13-2023 Basophils (Bld) [#/Vol] 0.1 10*3/uL 0.0 - 0.2 10*3/uL [facility] Basophils/100 WBC (Bld) 0.7 % 0.0 - 2.0 % [facility] Eosinophils (Bld) [#/Vol] 0.1 10*3/uL 0.0 - 0.5 10*3/uL [facility] Eosinophils/100 WBC (Bld) 0.8 % 0.0 - 6.0 % [facility] Erythrocyte distribution width (RBC) [Ratio] 13.2 % 11.5 - 15.0 % [facility] Hematocrit (Bld) [Volume fraction] 36.4 % Low 40.0 - 52.0 % [facility] Hemoglobin (Bld) [Mass/Vol] 12.9 g/dL Low 13.0 - 18.0 g/dL [facility] Immature granulocytes (Bld) [#/Vol] 0.0 10*3/uL NINF - 0.1 10*3/uL [facility] Immature granulocytes/100 WBC (Bld) 0.3 % 0.0 - 2.0 % [facility] Interpretation and review of laboratory results Abnormal [facility] Lymphocytes (Bld) [#/Vol] 2.3 10*3/uL 1.0 - 4.3 10*3/uL [facility] Lymphocytes/100 WBC (Bld) 26.7 % 15.0 - 45.0 % [facility] MCH (RBC) [Entitic mass] 30.5 pg 26.0 - 34.0 pg [facility] MCHC (RBC) [Mass/Vol] 35.4 % 30.5 - 36.0 % [facility] MCV (RBC) [Entitic vol] 86.1 fL 77.0 - 99.0 fL [facility] Monocytes (Bld) [#/Vol] 0.9 10*3/uL 0.0 - 0.9 10*3/uL [facility] Monocytes/100 WBC (Bld) 9.9 % 5.0 - 13.0 % [facility] Neutrophils (Bld) [#/Vol] 5.3 10*3/uL 1.8 - 7.5 10*3/uL [facility] Neutrophils/100 WBC (Bld) 61.6 % 38.0 - 82.0 % [facility] Nucleated RBC/100 WBC (Bld) [Ratio] 0.0 % [facility] Platelet mean volume (Bld) [Entitic vol] 11.9 fL 9.0 - 12.7 fL [facility] Platelets (Bld) [#/Vol] 239 10*3/uL 140 - 440 10*3/uL [facility] RBC (Bld) [#/Vol] 4.23 10*6/uL Low 4.40 - 5.9 0 10*6/uL [facility] WBC (Bld) [#/Vol] 8.7 10*3/uL 3.6 - 10.7 10*3/uL [facility] CBC WITH AUTO DIFFERENTIALon 09-13-2023 Basophils (Bld) [#/Vol] 0.1 10*3/uL Normal 0.0-0.2 [facility] Comment on above: Performed By: #### L [id number] ####Product Development: MARCELINA GIBBS ([id number])[facility] ([address] Basophils/100 WBC (Bld) 0.7 % Normal 0.0-2.0 [facility] Comment on above: Performed By: #### L [id number] ####Product Development: MARCELINA GIBBS ([id number])[facility])[address] [place] [address] Eosinophils (Bld) [#/Vol] 0.1 10*3/uL Normal 0.0-0.5 [facility] Comment on above: Performed By: #### L [id number] ####Product Development: MARCELINA GIBBS ([id number])[facility])[address] [place] [address] Eosinophils/100 WBC (Bld) 0.8 % Normal 0.0-6.0 [facility] Comment on above: Performed By: #### L [id number] ####Product Development: MARCELINA GIBBS ([id number])[address] Erythrocyte distribution width (RBC) [Ratio] 13.2 % Normal 11.5-15.0 [facility] Comment on above: Performed By: #### L [id number] ####Product Development: MARCELINA GIBBS ([id number])[address] Hematocrit (Bld) [Volume fraction] 36.4 % Low 40.0-52.0 [facility] Comment on above: Performed By: #### L [id number] ####Product Development: MARCELINA GIBBS ([id number])[address] Hemoglobin (Bld) [Mass/Vol] 12.9 g/dL Low 13.0-18.0 [facility] Comment on above: Performed By: #### L [id number] ####Product Development: MARCELINA GIBBS ([id number])[address] IMMATURE GRANS % 0.3 % Normal 0.0-2.0 [facility] Comment on above: Performed By: #### L [id number] ####Product Development: MARCELINA GIBBS ([id number])[facility] [address] IMMATURE GRANS ABSOLUTE 0.0 10*3/uL Normal <0.1 [facility] Comment on above: Performed By: #### L [id number] ####Product Development: MARCELINA GIBBS ([id number])[facility])[address] [place] [address] Lymphocytes (Bld) [#/Vol] 2.3 10*3/uL Normal 1.0-4.3 [facility] Comment on above: Performed By: #### L [id number] ####Product Development: MARCELINA GIBBS ([id number])[address] Lymphocytes/100 WBC (Bld) 26.7 % Normal 15.0-45.0 [facility] Comment on above: Performed By: #### L [id number] ####Product Development: MARCELINA GIBBS ([id number])[facility])[address] [place] [address] MCH (RBC) [Entitic mass] 30.5 pg Normal 26.0-34.0 [facility] Comment on above: Performed By: #### L [id number] ####Product Development: MARCELINA GIBBS ([id number])[address] MCHC 35.4 % Normal 30.5-36.0 [facility] Comment on above: Performed By: #### L [id number] ####Product Development: MARCELINA GIBBS ([id number])[facility])[address] [place] [address] MCV (RBC) [Entitic vol] 86.1 fL Normal 77.0-99.0 [facility] Comment on above: Performed By: #### L [id number] ####Product Development: MARCELINA GIBBS ([id number])[address] Monocytes (Bld) [#/Vol] 0.9 10*3/uL Normal 0.0-0.9 [facility] Comment on above: Performed By: #### L [id number] ####Product Development: MARCELINA GIBBS ([id number])[facility] ([facility])[address] [place] [address] Monocytes/100 WBC (Bld) 9.9 % Normal 5.0-13.0 [facility] Comment on above: Performed By: #### L [id number] ####Product Development: MARCELINA GIBBS ([id number])[facility] ([facility])[address] [place] [address] NEUTROPHILS ABSOLUTE 5.3 10*3/uL Normal 1.8-7.5 [facility] Comment on above: Performed By: #### L [id number] ####Product Development: MARCELINA GIBBS ([id number])[facility])[address] [place] [address] Neutrophils/100 WBC (Bld) 61.6 % Normal 38.0-82.0 [facility] Comment on above: Performed By: #### L [id number] ####Product Development: MARCELINA GIBBS ([id number])[facility] ([facility])[address] [place] [address] NRBC 0.0 /100 WBCs Normal 0.0-2.[address] [facility] Comment on above: Performed By: #### L [id number] ####Product Development: MARCELINA GIBBS ([id number])[facility])[address] [place] [address] Platelet mean volume (Bld) [Entitic vol] 11.9 fL Normal 9.0-12.7 [facility] Comment on above: Performed By: #### L [id number] ####Product Development: MARCELINA GIBBS ([id number])[facility] ([facility])[address] [place] [address] Platelets (Bld) [#/Vol] 239 10*3/uL Normal 140-440 [facility] Comment on above: Performed By: #### L [id number] ####Product Development: MARCELINA GIBBS ([id number])[facility])[address] [place] [address] RBC (Bld) [#/Vol] 4.23 10*6/uL Low 4.40-5.90 [facility] Comment on above: Performed By: #### L [id number] ####Product Development: MARCELINA GIBBS ([id number])[facility])[address] [place] [address] WBC (Bld) [#/Vol] 8.7 10*3/uL Normal 3.6-10.7 [facility] Comment on above: Performed By: #### L [id number] ####Product Development: MARCELINA CHARMAINERUTH ([id number])[facility])[address] [place] [address] Laboratory - Drug toxicology on 09-13-2023 Vancomycin trough [Mass/Vol] 21.8 ug/mL High 15.0 - 20.0 ug/mL [facility] Nursing Noteon 09-13-2023 Nursing Note Hand soak completed and rewrapped per order. Pt tolerated well. Normal [facility] Progress Noteon 09-13-2023 Progress Note .Nutrition rescreen completed. Chart reviewed. Patient to be monitored and followed by the diet artificial insemination technician. CLIFFORD Morris [facility] Progress Note - Attestation signed by Juju Robles DO at 09/13/2023 5:22 PM I saw and evaluated the patient. I agree with the findings and plan of care as documented in the resident's note, except as noted in Green text. Patient seen and examined personally during bedside teaching rounds (Date of Service: 09/13/23) -discharge pending cultures and final anti-microbial recs from ID. 7AM-5PM: contact resident on REMY Lozano (find by hovering over attending's name on left side of patient's chart) 5PM-7AM: contact [email or web address] res Med Team Progress Note Christian Danielson : 2000(23 y.o.) Date: September 13, 2023 Med Team: D Attending: Dr. Robles Chief Complaint: hand pain Subjective: - No acute events overnight. - Currently, patient walking around halls with IV pole. Reports he is doing well this morning. States his pain is well controlled with pain regimen. We discussed that we will be decreasing his pain regimen today in preparation for home-going regimen. Patient is agreeable. He is interested in getting home today. States he will be able to perform wound care at home with the help of his parents. Has not had a BM since admission, he typically has BM daily at home. Messaged nurse to give PRN miralax. PRN meds used in last 24hrs: IV dilaudid 0.5mg x3, ibuprofen 600mg x1, oxycodone 10mg x4 Review of Systems Constitutional: Negative for appetite change, chills and fever. Respiratory: Negative for shortness of breath. Cardiovascular: Negative for chest pain and leg swelling. Gastrointestinal: Positive for constipation. Negative for abdominal pain, diarrhea, nausea and vomiting. Skin: Positive for wound (and pain). Psychiatric/Behaviora l: Negative for agitation and confusion. Scheduled Meds:acetaminophen, 1,000 mg, Oral, q8h enoxaparin, 40 mg, SubCUTAneous, Daily piperacillin-tazobact am, 3,375 mg, IntraVENous, q8h vancomycin, 1,250 mg, IntraVENous, q12h Continuous Infusions: Objective: BP 118/60 (BP Location: Left arm, Patient Position: Sitting) Pulse (!) 46 Temp 36.7 ?C (98.1 ?F) (Temporal) Resp 16 Ht 6' 2 (1.88 m) Wt 170 lb (77.1 kg) SpO2 98% BMI 21.83 kg/m? Physical Exam Vitals and nursing note reviewed. Constitutional: Appearance: Normal appearance. He is not ill-appearing. HENT: Head: Normocephalic and atraumatic. Mouth/Throat: Mouth: Mucous membranes are moist. Eyes: Conjunctiva/sclera: Conjunctivae normal. Pupils: Pupils are equal, round, and reactive to light. Comments: 2mm pupils bilaterally Cardiovascular: Rate and Rhythm: Normal rate and regular rhythm. Pulses: Normal pulses. Heart sounds: Normal heart sounds. Pulmonary: Effort: Pulmonary effort is normal. No respiratory distress. Breath sounds: Normal breath sounds. Abdominal: General: Bowel sounds are normal. There is no distension. Palpations: Abdomen is soft. Tenderness: There is no abdominal tenderness. Musculoskeletal: General: Tenderness (R hand) present. Right lower leg: No edema. Left lower leg: No edema. Comments: R hand/forearm in dressing, CDI Skin: General: Skin is warm and dry. Neurological: General: No focal deficit present. Mental Status: He is alert and oriented to person, place, and time. [facility] Labs within last 24 hours Auto WBC Date Value Ref Range Status 09/13/2023 8.7 3.6 - 10.7 10*3/uL Final Hemoglobin Date Value Ref Range Status 09/13/2023 12.9 (L) 13.0 - 18.0 g/dL Final Hematocrit Date Value Ref Range Status 09/13/2023 36.4 (L) 40.0 - 52.0 % Final Platelets Date Value Ref Range Status 09/13/2023 239 140 - 440 10*3/uL Final MCV Date Value Ref Range Status 09/13/2023 86.1 77.0 - 99.0 fL Final SODIUM Date Value Ref Range Status 09/13/2023 134 (L) 135 - 145 mmol/L Final POTASSIUM Date Value Ref Range Status 09/13/2023 3.4 (L) 3.5 - 5.1 mmol/L Final CHLORIDE Date Value Ref Range Status 09/13/2023 103 98 - 107 mmol/L Final CARBON DIOXIDE Date Value Ref Range Status 09/13/2023 25 22 - 30 mmol/L Final UREA NITROGEN Date Value Ref Range Status 09/13/2023 14 9 - 20 mg/dL Final CREATININE Date Value Ref Range Status 09/13/2023 1.00 0.66 - 1.25 mg/dL Final GLUCOSE Date Value Ref Range Status 09/13/2023 111 (H) 70 - 100 mg/dL Final CALCIUM Date Value Ref Range Status 09/13/2023 8.9 8.4 - 10.4 mg/dL Final No results found for: AST, ALT, PROT, BILITOT, ALKPHOS, INR, APTT, LIPASE No results found for: CKTOTAL, CKMB, TROPONINI VANCOMYCIN, AUC Date Value Ref Range Status 09/13/2023 21.8 (H) 15.0 - 20.0 ug/mL Final Assessment and Plan: R index finger suppurative flexor tenosynovitis, s/p I&D -XR hand: no acute osseus process -wound gram stain: (more content not included)... Normal [facility] Progress Note [facility] [facility] [address] Dept: [phone] Loc: [phone] Orthopedic Progress Note Name: Christian Danielson Date:09/13/2023 Attending:Lela Hemphill MD Subjective No events o/n. Pain controlled at rest. Feels ok overall. Objective Vitals: Vitals: 09/12/23 1306 09/12/23 1714 09/12/23 2111 09/13/23 0553 BP: 139/81 131/76 142/88 118/60 BP Location: Left arm Left arm Patient Position: Sitting Sitting Pulse: 54 52 64 (!) 46 Resp: 16 16 17 16 Temp: 37.2 ?C (99 ?F) 36.3 ?C (97.4 ?F) 36.8 ?C (98.3 ?F) 36.7 ?C (98.1 ?F) TempSrc: Temporal Temporal Temporal Temporal SpO2: 99% 98% 100% 98% Weight: Height: Physical Exam: General: NAD RUE No expressible purulence from proximal or distal incision. No TTP over volar P1 or P2. Only TTP around incisions. Able to ROM finger with mild pain. Cap refill and sensation intact to finger tip. LABS: Recent Labs 09/11/23 1347 09/12/23 0103 09/13/23 0206 WBC 10.3 9.4 8.7 HGB 14.7 13.9 12.9* HCT 41.8 40.1 36.4* PLT 284 269 239 Recent Labs 09/11/23 1442 09/12/23 0103 09/13/23 0206 NA 136 134* 134* K 4.6 4.2 3.4* CL 105 102 103 CO2 20* 20* 25 BUN 16 15 14 CREATININE 1.12 0.98 1.00 CALCIUM 9.5 9.2 8.9 Recent Labs 09/11/23 1335 INR 1.0 Recent Labs 09/11/23 1347 09/11/23 1442 SEDRATE 7 -- CRP -- 10.5* No results for input(s): HCG in the last 72 hours. Assessment Christian is a 23 y.o.male with R IF FTS s/p I&D 09/10 Plan -Operative plans: No further plans for surgery -Immobilization: Splint to R hand in between soaks -Antibiotics: ID consult, broad spectrum for now. Cx +GPC. -Dressings: bandage changes in between soaks -Other: Hand soaks TID per order set, pull packing prior to soaking -Diet: no restrictions from ortho standpoint -Labs: No further labs needed from ortho standpoint. -Medical management, dvt ppx and pain control per primary -DVT ppx recommended?: No DVT ppx is indicated from ortho standpoint -Follow-up with Dr Olvera in 5-7 days -Ortho to sign off. Harvey Mercado MD Orthopaedic Surgery, PGY-2 09/13/2023 7:11 AM Normal [facility] VANCOMYCIN, AUC TIMED DOSING on 09-13-2023 VANCOMYCIN, AUC 21.8 ug/mL High 15.0-20.[facility] Comment on above: Order Comment: Pleas e draw random level at least >2 hours after the end of the last vancomycin infusion, or 30-minutes before next infusion. Performed By: #### L [id number] ####Product Development: MARCELINA GIBBS ([id number])[facility] ([address] Vancomycin trough [Mass/Vol] on 09-13-2023 Interpretation and review of laboratory results Abnormal [facility] BASIC METABOLIC PANELon 08-31 Anion gap [Moles/Vol] 12 mmol/L Normal 3-13 [facility] Comment on above: Performed By: #### L [id number] #### Product Development: MARCELINA GIBBS ([id number]) [facility] ([facility]) [address] [place] [address] Calcium [Mass/Vol] 9.2 mg/dL Normal 8.4-10.4 [facility] Comment on above: Performed By: #### L [id number] #### Product Development: MARCELINA GIBBS ([id number]) [facility] ([facility]) [address] [place] [address] Chloride [Moles/Vol] 102 mmol/L Normal 98-107 [facility] Comment on above: Performed By: #### L [id number] #### Product Development: MARCELINA GIBBS ([id number]) [facility] ([facility]) [address] [place] [address] [place] CO2 [Moles/Vol] 20 mmol/L Low 22-30 [facility] Comment on above: Performed By: #### L [id number] #### Product Development: MARCELINA GIBBS ([id number]) [facility] ([facility]) [address] [place] [address] Creatinine [Mass/Vol] 0.98 mg/dL Normal 0.66-1.25 [facility] Comment on above: Performed By: #### L [id number] #### Product Development: MARCELINA GIBBS ([id number]) [facility] ([facility]) [address] [place] [address] [place] GLOMERULAR FILTRATION RATE ML/MIN/1.73 SQ M.PREDICTED >90.0 Normal >60.0 [facility] Comment on above: Result Comment: Calc ulation based on the Chronic Kidney Disease Epidemiology Collaboration (CKD-EPI) equation refit without adjustment for race Performed By: #### L [id number] #### Product Development: MARCELINA GIBBS ([id number]) [facility] ([facility]) [address] [place] [address] Glucose [Mass/Vol] 140 mg/dL High 70-100 [facility] Comment on above: Performed By: #### L [id number] #### Product Development: MARCELINA GIBBS ([id number]) [facility] ([facility]) [address] [place] [address] Potassium [Moles/Vol] 4.2 mmol/L Normal 3.5-5.1 [facility] Comment on above: Performed By: #### L AB15 #### Product Development: MARCELINA GIBBS ([id number]) [facility] [address] [place] [address] Sodium [Moles/Vol] 134 mmol/L Low 135-145 [facility] Comment on above: Performed By: #### L AB15 #### Product Development: MARCELINA GIBBS ([id number]) [facility] ([facility] [address] [place] [address] Urea nitrogen [Mass/Vol] 15 mg/dL Normal 9-20 [facility] Comment on above: Performed By: #### L AB15 #### Product Development: MARCELINA GIBBS ([id number]) [facility] ([facility] [address] [place] [address] Basic metabolic 1998 panelon 09-12-2023 Anion gap [Moles/Vol] 12 mmol/L 3 - 13 mmol/L [facility] Calcium [Mass/Vol] 9.2 mg/dL 8.4 - 10. 4 mg/dL [facility] Chloride [Moles/Vol] 102 mmol/L 98 - 10 7 mmol/L [facility] CO2 [Moles/Vol] 20 mmol/L Low 22 - 30 mmol/L [facility] Creatinine [Mass/Vol] 0.98 mg/dL 0.66 - 1.25 mg/dL [facility] GFR/1.73 sq M.predicted MDRD (S/P/Bld) [Vol rate/Area] - PINF [facility] Comment on above: Calculation based on the Chronic Kidney Disease Epidemiology Collaboration (CKD-EPI) equation refit without adjustment for race Glucose [Mass/Vol] 140 mg/dL High 70 - 100 mg/dL [facility] Interpretation and review of laboratory results Abnormal [facility] Potassium [Moles/Vol] 4.2 mmol/L 3.5 - 5.1 mmol/L [facility] Sodium [Moles/Vol] 134 mmol/L Low 135 - 145 mmol/L [facility] Urea nitrogen [Mass/Vol] 15 mg/dL 9 - 20 mg/dL [facility] CBC W Auto Differential pane l (Bld)Ordered By: Kassandra David on 09-12-2023 Erythrocyte distribution width (RBC) [Ratio] 13.1 % 11.5 - 15.0 % [facility] Hematocrit (Bld) [Volume fraction] 40.1 % 40.0 - 52.0 % [facility] Hemoglobin (Bld) [Mass/Vol] 13.9 g/dL 13.0 - 18.0 g/dL [facility] Interpretation and review of laboratory results Normal [facility] MCH (RBC) [Entitic mass] 29.6 pg 26.0 - 34.0 pg [facility] MCHC (RBC) [Mass/Vol] 34.7 % 30.5 - 36.0 % [facility] MCV (RBC) [Entitic vol] 85.3 fL 77.0 - 99.0 fL [facility] Platelet mean volume (Bld) [Entitic vol] 11.5 fL 9.0 - 12.7 fL [facility] Platelets (Bld) [#/Vol] 269 10*3/uL 140 - 440 10*3/uL [facility] RBC (Bld) [#/Vol] 4.70 10*6/uL 4.40 - 5.9 0 10*6/uL [facility] WBC (Bld) [#/Vol] 9.4 10*3/uL 3.6 - 10.7 10*3/uL [facility] CBC WITH AUTO DIFFERENTIALon 09-12-2023 Erythrocyte distribution width (RBC) [Ratio] 13.1 % Normal 11.5-15.0 [facility] Comment on above: Performed By: #### L [id number], [id number] ####Product Development: MARCELINA GIBBS ([id number])[facility] ([address] Hematocrit (Bld) [Volume fraction] 40.1 % Normal 40.0-52.0 [facility] Comment on above: Performed By: #### L [id number], [id number] ####Product Development: MARCELINA GIBBS ([id number])[facility])[address] [place] [address] Hemoglobin (Bld) [Mass/Vol] 13.9 g/dL Normal 13.0-18.0 [facility] Comment on above: Performed By: #### L [id number], [id number] ####Product Development: MARCELINA GIBBS ([id number])[facility])[address] [place] [address] MCH (RBC) [Entitic mass] 29.6 pg Normal 26.0-34.0 [facility] Comment on above: Performed By: #### Tammy [id number], [id number] ####Product Development: MARCELINA GIBBS ([id number])[facility])[address] [place] [address] MCHC 34.7 % Normal 30.5-36.0 [facility] Comment on above: Performed By: #### Tammy [id number], [id number] ####Product Development: MARCELINA GIBBS ([id number])[facility])[address] [place] [address] MCV (RBC) [Entitic vol] 85.3 fL Normal 77.0-99.0 [facility] Comment on above: Performed By: #### L [id number], [id number] ####Product Development: MARCELINA GIBBS ([id number])[facility])[address] [place] [address] Platelet mean volume (Bld) [Entitic vol] 11.5 fL Normal 9.0-12.7 [facility] Comment on above: Performed By: #### L [id number], [id number] ####Product Development: MARCELINA GIBBS ([id number])[facility])[address] [place] [address] [place] Platelets (Bld) [#/Vol] 269 10*3/uL Normal 140-440 [facility] Comment on above: Performed By: #### L [id number], [id number] ####Product Development: MARCELINA GIBBS ([id number])[facility])[address] [place] [address] RBC (Bld) [#/Vol] 4.70 10*6/uL Normal 4.40-5.90 [facility] Comment on above: Performed By: #### L [id number], [id number] ####Product Development: MARCELINA GIBBS ([id number])[facility])[address] [place] [address] WBC (Bld) [#/Vol] 9.4 10*3/uL Normal 3.6-10.7 [facility] Comment on above: Performed By: #### L [id number], [id number] ####Product Development: MARCELINA GIBBS ([id number])[facility])[address] [place] [address] Consulton 09-12-2023 Consult [facility] - Infectious Diseases [facility] inpatient Consult Note Reason for Consult: Index finger flexor tenosynovitis with purulence in tendon sheath History of Present Illness: Christian Danielson is a 23 y/o male with PMH of GERD and H. Pylori who presented to [facility] ED on 09/11/2023 with worsening R index finger redness, swelling, and pain. He first noticed a small black area to to the tip of his index finger a week ago. He does not recall any injury to the site. 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 He often gets cuts on his hands. No h/o infections in the past. Over the next few days he developed increasing pain and swelling. He was seen at an Urgent Care on Wednesday and was prescribed Bactrim. He was then seen in ED on Wednesday due to min improvements on antibiotics. He had a bedside I&D performed and was referred to [facility]. Pt states symptoms did not improved and was sent to ED after he was seen by a hand specialist at [facility]. He denies any fevers, chills, sob, chest pain, nausea, vomiting, or diarrhea. He presents to ED afebrile and hemodynamically stable. Work up shows: Wbc 10.3, platelet 284, Scr 1.12, ESR 7, CRP 10.5. XR shows no acute fracture or osseous process. He was started on broad-spectrum antibiotics. He was evaluated by Orthopedics and was taken to OR I&D of the R index finger and flexor tendon sheath (09/11/2023)-->gross purulence encountered tracking directly into the flexor tendon sheath. Cultures were obtained. ID consulted to assist with antimicrobial management. Past Medical History: History reviewed. No pertinent past medical history. Past Surgical History: Past Surgical History: Procedure Laterality Date I&D ABSCESS-SIMPLE (HISTORICAL) Right 09/11/2023 INDEX FINGER Current Medications: Current Facility-Administered Medications Medication Dose Route Frequency Provider Last Rate Last Admin acetaminophen (Tylenol) tablet 650 mg 650 mg Oral q6h PRN Simona Jacqueline, DO Or acetaminophen (Tylenol) suppository 650 mg 650 mg Rectal q6h PRN Simonaviktor Phillips, DO enoxaparin (Lovenox) syringe 40 mg 40 mg SubCUTAneous Daily Simona Phillips, DO 40 mg at 09/11/23 2203 HYDROmorphone (Dilaudid) injection 0.5 mg 0.5 mg IntraVENous q8h PRN Rocio Anne MD naloxone (Narcan) injection 0.4 mg 0.4 mg IntraVENous q5 min PRN Paramjit Hernandez MD ondansetron ODT (Zofran-ODT) disintegrating tablet 4 mg 4 mg Oral q8h PRN Simona Jacqueline, DO Or ondansetron (Zofran) injection 4 mg 4 mg IntraVENous q6h PRN Simona Phillips, DO oxyCODONE (Roxicodone) immediate release tablet 5 mg 5 mg Oral q6h PRN Simona Jacqueline, DO Or oxyCODONE (Roxicodone) immediate release tablet 10 mg 10 mg Oral q6h PRN Simona Phillips, DO 10 mg at 09/12/23 1029 piperacillin-tazobact am (Zosyn) IVPB 3,375 mg 3,375 mg IntraVENous q8h Paramjit Hernandez MD 12.5 mL/hr at 09/12/23 1003 3,375 mg at 09/12/23 1003 polyethylene glycol (PEG) 3350 (Miralax) packet 17 g 17 g Oral Daily PRN Simona Phillips DO vancomycin IVPB 1250 mg in 250 mL NS (premix) 1,250 mg IntraVENous q12h Paramjit Hernandez MD 1,250 mg at 09/12/23 1032 Allergies: No Known Allergies Social History: Social History Socioeconomic History Marital status: Single Spouse name: Not on file Number of children: Not on file Years of education: Not on file Highest education level: Not on file Occupational History Not on file Tobacco Use Smoking status: Not on file Smokeless tobacco: Not on file Substance and Sexual Activity Alcohol use: Not on file Drug use: Not on file Sexual activity: Not on file Other Topics Concern Not on file Social History Narrative Not on file Social Determinants of Health Financial Resource Strain: Not on file Food Insecurity: Not on file Transportation Needs: Not on file Physical Activity: Not on file Stress: Not on file Social Connections: Not on file Intimate Partner Violence: Not At Risk (09/12/2023) Humiliation, Afraid, Rape, and Kick questionnaire Fear of Current or Ex-Partner: No Emotionally Abused: No Physically Abused: No Sexually Abused: No Housing Stability: Not on file Family History: No family history on file. Review of Systems: Review of Systems Constitutional: Negative for chills, fatigue and fever. HENT: Negative for congestion, sinus pain, sore throat and trouble swallowing. Eyes: Negative for visual disturbance. Respiratory: Negative for cough, shortness of breath and wheezing. Cardiovascular: Negative for chest pain, palpitations and leg swelling. Gastrointestinal: Negative for abdominal distention, abdominal pain, diarrhea, nausea and vomiting. Endocrine: Negative. Genitourinary: Negative for dysuria, flank pain, frequency, hematuria and urgency. Musculoskeletal: Negative for arthralgias, joint swelling, myalgias and neck stiffness. Skin: Positive for color change and wound. Negative for rash. Allergic/Immunologic: Negative. Neuro (more content not included)... Normal [facility] ECG 12-LEADon 09-12-2023 ECG 12-LEAD IMPRESSION: Sinus rhythm Short DE interval Probable inferior infarct, old Electronically Signed On 09-12-2023 01:35:22 EDT by Kirill Rene Normal [facility] [facility] - Hematology and Cell countsOrdered By: Genesis Chu on 09-12-2023 Band form neutrophils (Bld) [#/Vol] 0.5 10*3/uL High NINF - 0.0 10*3/uL [facility] Band form neutrophils/100 WBC (Bld) 5 % High NINF - 0 % [facility] Lymphocytes (Bld) [#/Vol] 0.3 10*3/uL Low 1.0 - 4.3 10*3/uL [facility] Lymphocytes/100 WBC (Bld) 3 % Low 15 - 45 % [facility] Monocytes (Bld) [#/Vol] 0.0 10*3/uL 0.0 - 0.9 10*3/uL [facility] Monocytes/100 WBC (Bld) 0 % Low 5 - 13 % [facility] Neutrophils (Bld) [#/Vol] 8.9 10*3/uL High 1.8 - 7.5 10*3/uL [facility] RBC morphology finding Nom (Bld) Normal [facility] Segmented neutrophils/100 WBC (Bld) 90 % High 38 - 82 % [facility] Variant lymphocytes (Bld) [#/Vol] 0.1 10*3/uL High NINF - 0.0 10*3/uL [facility] Variant lymphocytes/100 WBC (Bld) 1 % High NINF - 0 % [facility] MANUAL DIFFERENTIAL (CELLAVI NED)on 09-12-2023 BAND NEUTROPHILS TOTAL PER COUNTED LEUKOCYTES BY MANUAL COUNT 5 Normal [facility] Comment on above: Performed By: #### L [id number], [id number] ####Product Development: MARCELINA GIBBS ([id number])[facility] ([facility])[address] [place] [address] BANDS (10*3/UL) IN BLOOD-CELLAVISION 0.5 10*3/uL High <=0.0 [facility] Comment on above: Performed By: #### L [id number], [id number] ####Product Development: MARCELINA GIBBS ([id number])[facility] ([facility] [place] [address] [place] BASOPHILS TOTAL PER COUNTED LEUKOCYTES BY MANUAL COUNT Normal [facility] Comment on above: Performed By: #### L [id number], [id number] ####Product Development: MARCELINA GIBBS ([id number])[facility] ([facility])[address] [place] [address] [place] BLASTS TOTAL PER COUNTED LEUKOCYTES BY MANUAL COUNT Normal [facility] Comment on above: Performed By: #### L [id number], [id number] ####Product Development: MARCELINA GIBBS ([id number])[facility] ([facility])[address] [place] [address] [place] EOSINOPHILS TOTAL PER COUNTED LEUKOCYTES BY MANUAL COUNT Normal [facility] Comment on above: Performed By: #### L [id number], [id number] ####Product Development: MARCELINA GIBBS ([id number])[facility] ([facility])[address] [place] [address] [place] LYMPHOCYTE VARIANT/100 LEUKOCYTES IN BLOOD- CELLAVISION 1 % High <=0 [facility] Comment on above: Performed By: #### Tammy [id number], [id number] ####Product Development: MARCELINA GIBBS ([id number])[facility] ([facility])[address] [place] [address] [place] LYMPHOCYTES (10*3/UL) IN BLOOD-CELLAVISION 0.3 10*3/uL Low 1.0-4.3 [facility] Comment on above: Performed By: #### L [id number], [id number] ####Product Development: MARCELINA GIBBS ([id number])[facility] ([facility])[address] [place] [address] [place] LYMPHOCYTES TOTAL PER COUNTED LEUKOCYTES BY MANUAL COUNT 3 Normal [facility] Comment on above: Performed By: #### L [id number], [id number] ####Product Development: MARCELINA GIBBS ([id number])[facility])[address] [place] [address] [place] LYMPHOCYTES/100 LEUKOCYTES IN BLOOD-CELLAVISION 3 % Low 15-45 [facility] Comment on above: Performed By: #### L [id number], [id number] ####Product Development: MARCELINA GIBBS ([id number])[facility] [place] [address] [place] METAMYELOCYTES TOTAL PER COUNTED LEUKOCYTES BY MANUAL COUNT Normal [facility] Comment on above: Performed By: #### L [id number], [id number] ####Product Development: MARCELINA GIBBS ([id number])[facility] ([facility])[address] [place] [address] [place] MONOCYTES (10*3/UL) IN BLOOD-CELLAVISION 0.0 10*3/uL Normal 0.0-0.9 [facility] Comment on above: Performed By: #### L [id number], [id number] ####Product Development: MARCELINA GIBBS ([id number])[facility] ([facility])[address] [place] [address] [place] MONOCYTES TOTAL PER COUNTED LEUKOCYTES BY MANUAL COUNT 0 Normal [facility] Comment on above: Performed By: #### Tammy [id number], [id number] ####Product Development: MARCELINA GIBBS ([id number])[facility])[address] [place] [address] [place] MONOCYTES/100 LEUKOCYTES IN BLOOD-ANDRY 0 % Low 5-13 [facility] Comment on above: Performed By: #### L [id number], [id number] ####Product Development: MARCELINA GIBBS ([id number])[facility] ([facility])[address] [place] [address] [place] MYELOCYTES COUNTED BY MANUAL COUNT Normal [facility] Comment on above: Performed By: #### L [id number], [id number] ####Product Development: MARCELINA GIBBS ([id number])[facility] ([facility])[address] [place] [address] [place] NEUTROPHILS BAND FORM/100 LEUKOCYTES IN BLOOD-CELLAVISI 5 % High <=0 [facility] Comment on above: Performed By: #### L [id number], [id number] ####Product Development: MARCELINA GIBBS ([id number])[facility] ([facility])[address] [place] [address] [place] NEUTROPHILS TOTAL PER COUNTED LEUKOCYTES BY MANUAL COUNT 84 Normal [facility] Comment on above: Performed By: #### L [id number], [id number] ####Product Development: MARCELINA GIBBS ([id number])[facility] ([facility])[address] [place] [address] [place] PROMYELOCYTES TOTAL PER COUNTED LEUKOCYTES BY MANUAL COUNT Normal [facility] Comment on above: Performed By: #### L [id number], [id number] ####Product Development: MARCELINA GIBBS ([id number])[facility] ([facility])[address] [place] [address] [place] RBC MORPHOLOGY IN BLOOD Normal Normal [facility] Comment on above: Performed By: #### L [id number], [id number] ####Product Development: MARCELINA GIBBS ([id number])[facility])[address] [place] [address] SEGMENTED NEUTROPHILS (10*3/UL) IN BLOOD-CELLAVISION 8.9 10*3/uL High 1.8-7.5 [facility] Comment on above: Performed By: #### L [id number], [id number] ####Product Development: MARCELINA GIBBS ([id number])[facility] ([facility])[address] [place] [address] [place] SEGMENTED NEUTROPHILS/100 LEUKOCYTES-CE 90 % High 38-82 [facility] Comment on above: Performed By: #### L [id number], [id number] ####Product Development: MARCELINA GIBBS ([id number])[facility] ([facility])[address] [place] [address] [place] UNCLASSIFIED CELLS TOTAL PER COUNTED LEUKOCYTES BY MANUAL COUNT Normal [facility] Comment on above: Performed By: #### L [id number], [id number] ####Product Development: MARCELINA GIBBS ([id number])[facility])[address] [place] [address] [place] VARIANT LYMPHOCYTES (10*3/UL) IN BLOOD-CELLAVISION 0.1 10*3/uL High <=0.0 [facility] Comment on above: Performed By: #### L [id number], [id number] ####Product Development: MARCELINA GIBBS ([id number])[facility] ([facility])[address] [place] [address] VARIANT LYMPHOCYTES TOTAL PER COUNTED LEUKOCYTES BY MANUAL COUNT 1 Normal [facility] Comment on above: Performed By: #### L [id number], [id number] ####Product Development: MARCELINA GIBBS ([id number])[facility] ([facility])[address] [place] [address] No Panel InformationOrdered By: Genesis Chu on 09-12-2023 Atypical Lymphocytes Manual 1 [facility] Bands Manual 5 [facility] Basophils Manual [facility] Blasts Manual [facility] Eosinophils Manual [facility] Interpretation and review of laboratory results Abnormal [facility] Lymphocytes Manual 3 [facility] Metamyelocytes Manual [facility] Monocytes Manual 0 [facility] Myelocytes Manual [facility] Neutrophils Manual 84 [facility] Promyelocytes Manual [facility] Unclassified Cells, Manual [facility] No Panel InformationOrdered By: Kirill Rene on 09-12-2023 P [place] 72 degrees [facility] Work Phone: DE Interval 107 ms [facility] Work Phone: QRS [place] 70 degrees [facility] Work Phone: QRSD Interval 97 ms [facility] Work Phone: QT Interval 417 ms [facility] Work Phone: QTC Interval 419 ms [facility] Work Phone: T Wave [place] 19 degrees [facility] Work Phone: [facility] Work Phone: No Panel Informationon 09-11 Sinus rhythm Short DE interval Probable inferior infarct, old Electronically Signed On 09-12-2023 01:35:22 EDT by Kirill Rene CV Kirill Palomino MD - 09/12/2023 IMPRESSION: Sinus rhythm Short DE interval Probable inferior infarct, old Electronically Signed On 09-12-2023 01:35:22 EDT by Kirill Rene [facility] Progress Noteon 09-12-2023 Progress Note [facility] [facility] [address] Dept: [phone] Loc: [phone] Orthopedic Progress Note Name: Christian Danielson Date:09/12/2023 Attending:Lela Hemphill MD Subjective No events o/n. Pain controlled at rest. Feels ok overall. Objective Vitals: Vitals: 09/11/23 1904 09/11/23 2113 09/12/23 0114 09/12/23 0515 BP: (!) 144/113 143/76 137/71 129/68 BP Location: Left arm Left arm Left arm Left arm Patient Position: Sitting Sitting Sitting Lying Pulse: 76 57 67 61 Resp: 14 20 20 20 Temp: 36.7 ?C (98.1 ?F) 36.9 ?C (98.5 ?F) 36.7 ?C (98 ?F) (!) 35.9 ?C (96.7 ?F) TempSrc: Temporal Temporal Temporal Temporal SpO2: 97% 96% 98% 99% Weight: 77.1 kg (170 lb) Height: 1.88 m (6' 2) Physical Exam: General: NAD RUE Index finger: bandaging removed and packing pulled. Some bleeding from both incisions afterwards. No expressible purulence from proximal or distal incision. No TTP over volar P1 or P2. Only TTP around incisions. Able to ROM finger with mild pain. Cap refill and sensation intact to finger tip. LABS: Recent Labs 09/11/23 1347 09/12/23 0103 WBC 10.3 9.4 HGB 14.7 13.9 HCT 41.8 40.1 PLT 284 269 Recent Labs 09/11/23 1442 09/12/23 0103 NA 136 134* K 4.6 4.2 CL 105 102 CO2 20* 20* BUN 16 15 CREATININE 1.12 0.98 CALCIUM 9.5 9.2 Recent Labs 09/11/23 1335 INR 1.0 Recent Labs 09/11/23 1347 09/11/23 1442 SEDRATE 7 -- CRP -- 10.5* No results for input(s): HCG in the last 72 hours. Assessment Christian is a 23 y.o.male with R IF FTS s/p I&D 09/10 Plan -Operative plans: No further plans for surgery -Immobilization: Splint to R hand in between soaks -Antibiotics: ID consult, broad spectrum for now. Cx +GPC. -Dressings: bandage changes in between soaks -Other: Hand soaks TID per order set, pull packing prior to soaking -Diet: no restrictions from ortho standpoint -Labs: No further labs needed from ortho standpoint. -Medical management, dvt ppx and pain control per primary -DVT ppx recommended?: No DVT ppx is indicated from ortho standpoint -Follow-up with Dr Olvera in 5-7 days -Recommend overnight stay tonight then possibly home tomorrow with oral abx as long as clinical exam remains improved. Ortho will examine tomorrow on rounds. Danny Navarro M.D. Orthopaedic Surgery Normal [facility] Vital signsOrdered By: Altagracia Rene on 09-12-2023 Heart rate 60 /min bpm [facility] Work Phone: ABO and Rh group Confirm Nom (Bld)on 09-11-2023 ABO group Nom (Bld) A [facility] D Ag Ql (RBC) Negative [facility] BASIC METABOLIC PANELon 08-31 Anion gap [Moles/Vol] 10 mmol/L Normal 3-13 [facility] Comment on above: Performed By: #### L [id number] #### Product Development: MARCELINA GIBBS ([id number]) [facility] ([facility]) [address] [place] [address] Calcium [Mass/Vol] 9.5 mg/dL Normal 8.4-10.4 [facility] Comment on above: Performed By: #### L AB15 #### Product Development: MARCELINA GIBBS ([id number]) [facility] ([facility]) [address] [place] [address] Chloride [Moles/Vol] 105 mmol/L Normal 98-107 [facility] Comment on above: Performed By: #### L AB15 #### Product Development: MARCELINA GIBBS ([id number]) [facility] ([facility]) [address] [place] [address] CO2 [Moles/Vol] 20 mmol/L Low 22-30 [facility] Comment on above: Performed By: #### L [id number] #### Product Development: MARCELINA GIBBS ([id number]) [facility] ([facility]) [address] [place] [address] Creatinine [Mass/Vol] 1.12 mg/dL Normal 0.66-1.25 [facility] Comment on above: Performed By: #### L AB15 #### Product Development: MARCELINA GIBBS ([id number]) [facility]) [address] [place] [address] GLOMERULAR FILTRATION RATE ML/MIN/1.73 SQ M.PREDICTED >90.0 Normal >60.0 [facility] Comment on above: Result Comment: Calc ulation based on the Chronic Kidney Disease Epidemiology Collaboration (CKD-EPI) equation refit without adjustment for race Performed By: #### L [id number] #### Product Development: MARCELINA GIBBS ([id number]) [facility] ([facility]) [address] [place] [address] Glucose [Mass/Vol] 98 mg/dL Normal 70-100 [facility] Comment on above: Performed By: #### L AB15 #### Product Development: MARCELINA GIBBS ([id number]) [facility] ([facility]) [address] [place] [address] Potassium [Moles/Vol] 4.6 mmol/L Normal 3.5-5.1 [facility] Comment on above: Performed By: #### L AB15 #### Product Development: MARCELINA GIBBS ([id number]) [facility]) [address] [place] [address] Sodium [Moles/Vol] 136 mmol/L Normal 135-145 [facility] Comment on above: Performed By: #### L AB15 #### Product Development: MARCELINA GIBBS ([id number]) [facility] [address] [place] [address] Urea nitrogen [Mass/Vol] 16 mg/dL Normal 9-20 [facility] Comment on above: Performed By: #### L AB15 #### Product Development: MARCELINA GIBBS ([id number]) [facility] ([facility]) [address] [place] [address] BLOOD TYPE AND SCREEN GELon 09-11-2023 ABO GROUPING A Normal [facility] Comment on above: Performed By: #### L [id number] ####Product Development: MARCELINA GIBBS ([id number])[facility]OD [facility] ([facility])[address] [place] [address] RH TYPE IN BLOOD Negative Normal [facility] Comment on above: Performed By: #### L [id number] ####Product Development: MARCELINA GIBBS ([id number])[facility] ([facility])[address] [place] [address] Basic metabolic 1998 panelon 09-11-2023 Anion gap [Moles/Vol] 10 mmol/L 3 - 13 mmol/L [facility] Calcium [Mass/Vol] 9.5 mg/dL 8.4 - 10. 4 mg/dL [facility] Chloride [Moles/Vol] 105 mmol/L 98 - 10 7 mmol/L [facility] CO2 [Moles/Vol] 20 mmol/L Low 22 - 30 mmol/L [facility] Creatinine [Mass/Vol] 1.12 mg/dL 0.66 - 1.25 mg/dL [facility] GFR/1.73 sq M.predicted MDRD (S/P/Bld) [Vol rate/Area] - PINF [facility] Comment on above: Calculation based on the Chronic Kidney Disease Epidemiology Collaboration (CKD-EPI) equation refit without adjustment for race Glucose [Mass/Vol] 98 mg/dL 70 - 100 mg/dL [facility] Potassium [Moles/Vol] 4.6 mmol/L 3.5 - 5.1 mmol/L [facility] Sodium [Moles/Vol] 136 mmol/L 135 - 145 mmol/L [facility] Urea nitrogen [Mass/Vol] 16 mg/dL 9 - 20 mg/dL [facility] Blood type and Crossmatch shahriar solano (Bld)on 09-11-2023 ABO group Nom (Bld) A [facility] Blood group antibody screen GEL Ql Negative [facility] D Ag Ql (RBC) Negative [facility] C-REACTIVE PROTEINon 024 CRP [Mass/Vol] 10.5 mg/L High <10.0 [facility] Comment on above: Performed By: #### L [id number], [id number] #### Product Development: MARCELINA GIBBS ([id number]) [facility] ([facility]) [address] [place] [address] CBC W Auto Differential pane l (Bld)Ordered By: Areli Chacon on 09-11-2023 Basophils (Bld) [#/Vol] 0.1 10*3/uL 0.0 - 0.2 10*3/uL [facility] Basophils/100 WBC (Bld) 0.6 % 0.0 - 2.0 % [facility] Eosinophils (Bld) [#/Vol] 0.1 10*3/uL 0.0 - 0.5 10*3/uL [facility] Eosinophils/100 WBC (Bld) 1.3 % 0.0 - 6.0 % [facility] Erythrocyte distribution width (RBC) [Ratio] 13.2 % 11.5 - 15.0 % [facility] Hematocrit (Bld) [Volume fraction] 41.8 % 40.0 - 52.0 % [facility] Hemoglobin (Bld) [Mass/Vol] 14.7 g/dL 13.0 - 18.0 g/dL [facility] Immature granulocytes (Bld) [#/Vol] 0.0 10*3/uL NINF - 0.1 10*3/uL [facility] Immature granulocytes/100 WBC (Bld) 0.3 % 0.0 - 2.0 % [facility] Interpretation and review of laboratory results Abnormal [facility] Lymphocytes (Bld) [#/Vol] 1.9 10*3/uL 1.0 - 4.3 10*3/uL [facility] Lymphocytes/100 WBC (Bld) 18.2 % 15.0 - 45.0 % [facility] MCH (RBC) [Entitic mass] 30.1 pg 26.0 - 34.0 pg [facility] MCHC (RBC) [Mass/Vol] 35.2 % 30.5 - 36.0 % [facility] MCV (RBC) [Entitic vol] 85.7 fL 77.0 - 99.0 fL [facility] Monocytes (Bld) [#/Vol] 1.2 10*3/uL High 0.0 - 0.9 10*3/uL [facility] Monocytes/100 WBC (Bld) 11.8 % 5.0 - 13.0 % [facility] Neutrophils (Bld) [#/Vol] 7.0 10*3/uL 1.8 - 7.5 10*3/uL [facility] Neutrophils/100 WBC (Bld) 67.8 % 38.0 - 82.0 % [facility] Nucleated RBC/100 WBC (Bld) [Ratio] 0.0 % [facility] Platelet mean volume (Bld) [Entitic vol] 11.3 fL 9.0 - 12.7 fL [facility] Platelets (Bld) [#/Vol] 284 10*3/uL 140 - 440 10*3/uL [facility] RBC (Bld) [#/Vol] 4.88 10*6/uL 4.40 - 5.9 0 10*6/uL [facility] WBC (Bld) [#/Vol] 10.3 10*3/uL 3.6 - 10.7 10*3/uL [facility] CBC WITH AUTO DIFFERENTIALon 09-11-2023 Basophils (Bld) [#/Vol] 0.1 10*3/uL Normal 0.0-0.2 [facility] Comment on above: Performed By: #### Tammy [id number], [id number] ####Product Development: MARCELINA GIBBS ([id number])[facility] ([facility])[address] [place] [address] Basophils/100 WBC (Bld) 0.6 % Normal 0.0-2.0 [facility] Comment on above: Performed By: #### Tammy [id number], [id number] ####Product Development: MARCELINA GIBBS ([id number])[facility] ([facility])[address] [place] [address] Eosinophils (Bld) [#/Vol] 0.1 10*3/uL Normal 0.0-0.5 [facility] Comment on above: Performed By: #### Tammy AB322, [id number] ####Product Development: MARCELINA GIBBS ([id number])[facility])[address] [place] [address] Eosinophils/100 WBC (Bld) 1.3 % Normal 0.0-6.0 [facility] Comment on above: Performed By: #### Tammy AB322, [id number] ####Product Development: MARCELINA GIBBS ([id number])[facility])[address] [place] [address] Erythrocyte distribution width (RBC) [Ratio] 13.2 % Normal 11.5-15.0 [facility] Comment on above: Performed By: #### Tammy [id number], [id number] ####Product Development: MARCELINA GIBBS ([id number])[address] Hematocrit (Bld) [Volume fraction] 41.8 % Normal 40.0-52.0 [facility] Comment on above: Performed By: #### Tammy AB322 [id number] ####Product Development: MARCELINA GIBBS ([id number])[address] Hemoglobin (Bld) [Mass/Vol] 14.7 g/dL Normal 13.0-18.0 [facility] Comment on above: Performed By: #### Tammy AB322, [id number] ####Product Development: MARCELINA GIBBS ([id number])[facility])[address] [place] [address] IMMATURE GRANS % 0.3 % Normal 0.0-2.0 [facility] Comment on above: Performed By: #### Tammy AB322, [id number] ####Product Development: MARCELINA GIBBS ([id number])[address] IMMATURE GRANS ABSOLUTE 0.0 10*3/uL Normal <0.1 [facility] Comment on above: Performed By: #### Tammy AB322, [id number] ####Product Development: MARCELINA GIBBS ([id number])[facility])[address] [place] [address] Lymphocytes (Bld) [#/Vol] 1.9 10*3/uL Normal 1.0-4.3 [facility] Comment on above: Performed By: #### Tammy AB322, [id number] ####Product Development: MARCELINA GIBBS ([id number])[facility])[address] [place] [address] Lymphocytes/100 WBC (Bld) 18.2 % Normal 15.0-45.0 [facility] Comment on above: Performed By: #### Tammy AB322, [id number] ####Product Development: MARCELINA GIBBS ([id number])[facility])[address] [place] [address] MCH (RBC) [Entitic mass] 30.1 pg Normal 26.0-34.0 [facility] Comment on above: Performed By: #### Tammy AB322, [id number] ####Product Development: MARCELINA GIBBS ([id number])[facility])[address] [place] [address] MCHC 35.2 % Normal 30.5-36.0 [facility] Comment on above: Performed By: #### Tammy AB322, [id number] ####Product Development: MARCELINA GIBBS ([id number])[facility])[address] [place] [address] MCV (RBC) [Entitic vol] 85.7 fL Normal 77.0-99.0 [facility] Comment on above: Performed By: #### Tammy AB322, [id number] ####Product Development: MARCELINA GIBBS ([id number])[facility])[address] [place] [address] Monocytes (Bld) [#/Vol] 1.2 10*3/uL High 0.0-0.9 [facility] Comment on above: Performed By: #### L AB322, [id number] ####Product Development: MARCELINA GIBBS ([id number])[facility] ([facility])[address] [place] [address] Monocytes/100 WBC (Bld) 11.8 % Normal 5.0-13.0 [facility] Comment on above: Performed By: #### L AB322, [id number] ####Product Development: MARCELINA GIBBS ([id number])[facility] ([facility])[address] [place] [address] NEUTROPHILS ABSOLUTE 7.0 10*3/uL Normal 1.8-7.5 [facility] Comment on above: Performed By: #### L [id number], [id number] ####Product Development: MARCELINA GIBBS ([id number])[facility] ([facility])[address] [place] [address] Neutrophils/100 WBC (Bld) 67.8 % Normal 38.0-82.0 [facility] Comment on above: Performed By: #### Tammy [id number], [id number] ####Product Development: MARCELINA GIBBS ([id number])[facility] [facility])[address] [place] [address] NRBC 0.0 /100 WBCs Normal 0.0-2.[address] [facility] Comment on above: Performed By: #### L [id number], [id number] ####Product Development: MARCELINA GIBBS ([id number])[facility] ([facility])[address] [place] [address] [place] Platelet mean volume (Bld) [Entitic vol] 11.3 fL Normal 9.0-12.7 [facility] Comment on above: Performed By: #### L [id number], [id number] ####Product Development: MARCELINA GIBBS ([id number])[facility] ([facility])[address] [place] [address] [place] Platelets (Bld) [#/Vol] 284 10*3/uL Normal 140-440 [facility] Comment on above: Performed By: #### L [id number], [id number] ####Product Development: MARCELINA GIBBS ([id number])[facility])[address] [place] [address] RBC (Bld) [#/Vol] 4.88 10*6/uL Normal 4.40-5.90 [facility] Comment on above: Performed By: #### L [id number], [id number] ####Product Development: MARCELINA GIBBS ([id number])[facility])[address] [place] [address] WBC (Bld) [#/Vol] 10.3 10*3/uL Normal 3.6-10.7 [facility] Comment on above: Performed By: #### L [id number], [id number] ####Product Development: MARCELINA GIBBS ([id number])[facility])[address] [place] [address] CULTURE ANAEROBICon 09-11-19 CULTURE ANAEROBIC ANAEROBIC CULTURE Reference No growth at 5 days [ S = SUSCEPTIBLE R = RESISTANT I = INTERMEDIATE S-DD = Susceptible-dose dependent NS = Non-susceptible NO = No Interpretation ] [facility] Comment on above: Performed By: #### L [id number] ####Product Development: MARCELINA GIBBS ([id number])[facility])[address] [place] [address] CULTURE, AEROBIC BACTERIA WI TH GRAM STAINon 09-11-2023 CULTURE, AEROBIC BACTERIA WITH GRAM STAIN CULTURE (A) Reference STAPHYLOCOCCUS AUREUS Few Staphylococcus aureus (A) PBP2A Reference Negative GRAM STAIN RESULT (A) Reference (A) No polymorphonuclear leukocytes seen Rare Gram positive cocci in clusters Organism: STAPHYLOCOCCUS AUREUS Antibiotic MICHELLE Interpretation Status Clindamycin 0.25 ug/ml S F Gentamicin <=0.5 ug/ml S F Oxacillin 0.5 ug/ml S F Trimethoprim / Sulfamethoxazole <=10 ug/ml S F Vancomycin <=0.5 ug/ml S F [ S = SUSCEPTIBLE R = RESISTANT I = INTERMEDIATE S-DD = Susceptible-dose dependent NS = Non-susceptible NO = No Interpretation ] Normal [facility] Comment on above: Performed By: #### L [id number] ####Product Development: MARCELINA GIBBS ([id number])[facility] ([address] Consulton 09-11-2023 Consult Pharmacy Managed Vancomycin Dosing Service Consult Note Consult Date: 09/11/23 Patient Name: Christian Danielson Allergies: Patient has no known allergies. Age: 23 y.o. Sex: male There is no height or weight on file to calculate BMI. DW: 77.1 KG Lab Results Component Value Date CREATININE 1.12 09/11/2023 BUN 16 09/11/2023 WBC 10.3 09/11/2023 Calculated CrCl: 113 mL/min Consulted By: Paramjit Hernandez MD Infectious Diagnosis: Bone and joint infection (AUC Goal 400-600 mg/L*hr) Random Vancomycin Level Due: 09/12 with AM labs Antimicrobials: Patient recently received an antibiotic (last 12 hours) Date/Time Action Medication Dose Rate 09/11/23 1327 New Bag ampicillin-sulbactam (Unasyn) 3,000 mg in sodium chloride 0.9 % 100 mL IVPB (Add-Nazareth) 3,000 mg 200 mL/hr Assessment/Plan: Doses, serum creatinine, and vancomycin levels interfaced automatically to [employer] and data has been analyzed and interpreted. Start Vancomycin 1750 mg load once followed by 1250 mg every 12 hours based on patient age, weight, renal function, and infectious diagnosis (16.2 mg/kg). Predicted AUC = 574 mg/L*hr (goal 400-600 mg/L*hr) PAUC = 83% (probability that AUC is >400 mg/L*hr) Pconc* = 40% (probability that Ctrough is above 20 mcg/mL (toxicity)) Will assess random level on 09/12 with AM labs and adjust as appropriate. Trend serum creatinine. Orders placed. Thank you for this consult. Please secure text or call with questions. DATE: 09/11/23 TIME: 7:18 PM Thiago Beaulieu RPh Clinical Pharmacist Available via Secure Chat [facility] Consult Ortho H&P/Consult Patient: Christian Danielson Date of : 2000 Acct: [id number] PCP: No primary care provider on file. Date of Admission: 09/11/2023 Date of Service: Pt seen/examined on 09/11/2023 Chief Complaint: Right index finger pain and swelling, progressive History Of Present Illness: This is a 23 y.o. bilateral hand dominant male who presents with a 1 week history of progressive volar index finger pain and swelling. 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 Initially the injury and pain which is contained in this area but progressed proximally up his finger. He was placed on Bactrim and has been on it for 3 or 4 days but the symptoms have continued to progress. Denies any fevers or chills. No other history of severe infections. Initially presented to [facility] and due to concerns for pyogenic flexor tenosynovitis he was transferred to [facility]. He has no other medical problems Patient ambulation status: no difficulty. Antiplatelets/Anticoa gulation includes: none. 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 Past Surgical History: No past surgical history on file. Home Medications: Prior to Admission medications Not on File Current Hospital Medications: Current Facility-Administered Medications: ampicillin-sulbactam (Unasyn) 3,000 mg in sodium chloride 0.9 % 100 mL IVPB (Add-Nazareth), 3,000 mg, IntraVENous, Once, Alek Germain MD No current outpatient medications on file. Allergies: Patient has no known allergies. Social History: Social History Socioeconomic History Marital status: Single Spouse name: Not on file Number of children: Not on file Years of education: Not on file Highest education level: Not on file Occupational History Not on file Tobacco Use Smoking status: Not on file Smokeless tobacco: Not on file Substance and Sexual Activity Alcohol use: Not on file Drug use: Not on file Sexual activity: Not on file Other Topics Concern Not on file Social History Narrative Not on file Social Determinants of Health Financial Resource Strain: Not on file Food Insecurity: Not on file Transportation Needs: Not on file Physical Activity: Not on file Stress: Not on file Social Connections: Not on file Intimate Partner Violence: Not on file Housing Stability: Not on file Family History: No family history on file. Further Family History is noncontributory to this injury. REVIEW OF SYSTEMS: Review of Systems - General ROS: negative for - chills, fatigue, fever, malaise or night sweats Psychological ROS: negative Ophthalmic ROS: negative ENT ROS: negative for - headaches or sore throat Hematological and Lymphatic ROS: negative for - bleeding problems or blood clots Respiratory ROS: no cough, shortness of breath, or wheezing Cardiovascular ROS: no chest pain or dyspnea on exertion Gastrointestinal ROS: negative Musculoskeletal ROS: See HPI Neurological ROS: negative for - bowel and bladder control changes, gait disturbance or numbness/tingling All other systems reviewed and are negative PHYSICAL EXAM: BP 135/84 Pulse 68 Temp 36.2 ?C (97.2 ?F) (Temporal) Resp 16 SpO2 99% GENERAL APPEARANCE: Awake and oriented x3. No acute distress, except appropriate to injury. MOOD AND AFFECT: Calm appropriate to situation GAIT AND STATION: Patient is in bed and able to ambulate REFLEXES: No clonus or Babinski. COORDINATION and BALANCE: Patient is grossly coordinated Lymphadenopathy: none on examination of the affected extremity(s) Right Upper Extremity: Examination of the right hand reveals significant swelling of the index finger held in a flexed posture. Mild erythema. There is a lesion at the distal tip of the index finger concerning for a felon. There is exquisite tenderness palpation along the path of the flexor tendon down to the level of the A1 wesley. There is exquisite tenderness to any passive extension. Sensation is intact distally. The tip of the finger is well-perfused. There is no tenderness palpation in the distal palm and proximal. All of the other remaining digits are benign. Labs: CBC: No results found for: WBC, RBC, HEMOGLOBIN BMP:No results found for: GLUCOSE, SODIUM, POTASSIUM, CHLORIDE, CO2, BUN, CREATININE, CALCIUM PT/INR: No results found for: PT, INR, APTT Type and Screen: No results found for: RH, LABANTI CRP: No results found for: CRP ESR: No results found for: SEDRATE HgBA1c: No components found for: LABA1C The above labs were reviewed by me. Radiology: The below imaging was independently reviewed and interpreted XR: Right hand: No acute fracture or dislocation. Skeletally mature. Soft tissue swelling of the index finger. No evidence of osteomyelitis. Radiology report reviewed. ASSESSMENT (more content not included)... Normal [facility] ED Provider Noteon ED Provider Note EMERGENCY DEPARTMENT ENCOUNTER Pt Name: Christian Danielson Birthdate 2000 Date of evaluation: 09/11/2023 ED Provider: Alek Germain MD CHIEF COMPLAINT Chief Complaint Patient presents with Hand Pain Patient sent by [facility] to be seen by hand specialist. States he woke up with an infection/swelling/pa in to the R index finger on Wednesday. Patient is a/o x 4. GCS 15. HISTORY OF PRESENT ILLNESS (Location/Symptom, Timing/Onset, Context/Setting, Quality, Duration, Modifying Factors, Severity) Note limiting factors. I wore appropriate PPE for the entirety of this encounter. HPI Christian Danielson is a 23 y.o. who presents to the emergency department with right index finger cellulitis and tenosynovitis Patient has no history of diabetes no history of HIV, takes no medications daily. Has never had any orthopedic surgery previously. Does not smoke does not use illicit drugs. No family history of orthopedic issues or hand issues specifically. Patient says that starting last Wednesday he started having right index finger cellulitis he is not sure exactly how it began. He has been in and out of urgent care offices, and they placed him on Bactrim antibiotics. At 1 point he actually had a incision at the base of the nailbed/proximal end of the nailbed to drain what they thought was a paronychia but this did not have any effect. He kept taking the Bactrim and the cellulitis got bigger and bigger, gradually moving proximally into his DIP then his PIP then his MCP. He now cannot extend the right index finger at all, and has reduced flexion in the right index finger at the MCP PIP and DIP joints. No numbness or paresthesias, he still has intact sensation, and digits 1, 3, 4, 5 are not involved. The cellulitis in the right index finger does not extend into the right hand itself or into the right wrist. No fevers no chills. He was seen at the [facility] urgent care earlier today who felt that he would require a trip to the operating room for washout by hand surgery and they sent him to the emergency department here in [facility] ED to see hand surgery, [facility]. No chest pain no palpitations no shortness of breath no abdominal pain. Nursing Notes were reviewed. Limitations to history: None Outside historians: Sending clinician from [facility] urgent care REVIEW OF SYSTEMS Review of Systems Pertinent positives and negatives as per HPI PAST MEDICAL HISTORY History reviewed. No pertinent past medical history. SURGICAL HISTORY Past Surgical History: Procedure Laterality Date I&D ABSCESS-SIMPLE (HISTORICAL) Right 09/11/2023 INDEX FINGER CURRENT MEDICATIONS There are no discharge medications for this patient. ALLERGIES Patient has no known allergies. FAMILY HISTORY No family history on file. SOCIAL HISTORY Social History Socioeconomic History Marital status: Single PHYSICAL EXAM ED Triage Vitals [09/11/23 1207] Temp Heart Rate Resp BP 36.2 ?C (97.2 ?F) 68 16 135/84 SpO2 Temp Source Heart Rate Source Patient Position 99 % Temporal Monitor -- BP Location FiO2 (%) -- -- Physical Exam General: WDWN adult in NAD. Non-toxic appearing HENT: Head NCAT, EOMI with no erythema, swelling or discharge. Oropharyngeal mucus membranes moist, pink, no exudate Neck: Full ROM, supple, no rigidity Cardio: RRR, nl s1 s2 no m/r/g, extremities warm, dry, well perfused, non-edematous, 2+ right radial pulse, less than 2-second capillary refill in digits 1, 3, 4, 5 on the right hand. Is difficult to evaluate capillary refill in right hand digit #2 because there is an area of fluctuance at the distal tip of the phalanx so it is discolored Lungs: CTAB, no wheezes, rales, rhonchi, normal work of breathing Abdomen: Soft, NT, ND, non-rigid, BS x 4 normal MSK: Right wrist nontender to palpation, nonerythematous. Full range of flexion extension abduction abduction right wrist without pain The metacarpals are entirely nontender to palpation in all digits Right hand index finger is essentially frozen in position. It is erythematous from the tip of the distal phalanx to the MCP joint and appears to be cellulitic. Patient can flex about 45 degrees at the MCP joint but 0 degrees of flexion at the PIP joint and only 10 degrees of flexion at the DIP joint. Patient cannot extend at all at any of the MCP PIP and DIP joints on the right hand index finger, he is stuck in flexion Skin: Right hand index finger hot to the touch, dry, erythematous. No active purulent or bloody drainage, dry, erythematous Neuro: Alert, oriented, mentating normally Intact sensation all the way to the tip of the right index finger. Strength in right index finger is limited by pain DIAGNOSTIC RESULTS RADIOLOGY (Per Emergency Physician): Interpretation per the Radiologist below, if available at the time of this note: XR chest 1 view Final Result FINDINGS/IMPRESSION: 1. Lines/Tu (more content not included)... Normal [facility] ESR (Bld) [Velocity]on 09-10 Interpretation and review of laboratory results Normal [facility] FUNGAL CULTUREon 09-11-2023 FUNGAL CULTURE FUNGAL CULTURE Reference No fungus isolated after 21 days [ S = SUSCEPTIBLE R = RESISTANT I = INTERMEDIATE S-DD = Susceptible-dose dependent NS = Non-susceptible NO = No Interpretation ] Normal [facility] Comment on above: Performed By: #### L [id number] #### Product Development: MARCELINA GIBBS ([id number]) [facility] ([facility]) [address] [place] [address] Laboratory - Chemistry and C hemistry - challengeon 09-11-2023 CRP [Mass/Vol] 10.5 mg/L High NINF - 10.0 mg/L [facility] Laboratory - Coagulationon 0 09-11-2023 PT Coag (Bld) [Time] 11.3 s 9.0 - 12.0 s [facility] Laboratory - Hematology and Cell countson 09-11-2023 ESR (Bld) [Velocity] 7 mm/h [facility] No Panel Informationon 09-10 Interpretation and review of laboratory results Abnormal [facility] Nursing Noteon 09-11-2023 Nursing Note Patient's father, Rell, updated by RN at this time via phone call. Normal [facility] Nursing Note Report called to RN on H5 by Antonio Christensen RN. No questions asked. Normal [facility] Op Noteon 09-11-2023 Op Note Date: 09/11/2023 Location: [facility] OR Name: Christian Danielson, : 2000, Diagnosis Pre-op Diagnosis * Tenosynovitis [M65.9] Post-op Diagnosis * Tenosynovitis [M65.9] Procedures INCISION AND DRAINAGE OF TENDON SHEATH DIGIT AND OR PALM 78030 - DE DRAINAGE TENDON SHEATH DIGIT&/PALM EACH Surgeons * Aleja Olvera - Primary Procedure Summary Anesthesia: Choice ASA: I Estimated Blood Loss: 0 mL Drains: * None in log * Specimens ID Source Type Tests Collected By Collected At [facility]? Priority Lab ID A Finger, Right Swab FUNGAL CULTURE AEROBIC AND ANAEROBIC CULTURE WITH STAIN Aleja Olvera MD 09/11/23 1710 [id number], [id number], [id number] Description: RIGHT INDEX FINGER Staff: [employer] Supervisor: Juliann Walker RN Scrub Person: Jessica Abernathy Findings: Purulence within flexor tendon sheath Complications: None; patient tolerated the procedure well. Specimens Collected: Order Name Source Comment Collection Info Order Time FUNGAL CULTURE Finger, Right Collected By: Aleja Olvera MD 09/11/2023 5:10 PM AEROBIC AND ANAEROBIC CULTURE WITH STAIN Finger, Right Collected By: Aleja Olvera MD 09/11/2023 5:10 PM Wound Class: Class IV: Dirty Blood Products: None Prophylactic Antibiotics: Procedure appropriate prophylactic antibiotic(s) given within 1 hour of surgical incision (two hours if receiving Vancomycin or flouroquinolone) -Operative plans: No further plans for surgery, but will monitor patient closely -Weight bearing: RLE: WBAT LLE: WBAT RUE: NWB LUE: WBAT -Range of motion parameters: ROM as tolerated -Immobilization: Splint to RUE. Keep clean, dry, and intact. -Will defer decision for or against ID consult to primary medical team -Antibiotics: Continue empiric antibiotics, OR cultures pending -Dressings: Keep dressings on until the follow up office visit. Change as needed for saturation. -Other: Hand soaks TID per order set, pull packing prior to soaking -Diet: no restrictions from ortho standpoint -Labs: No further labs needed from ortho standpoint. -PT/OT -PT recommended outpatient/post discharge?: No formal PT is needed -Medical management, dvt ppx and pain control per primary -DVT ppx recommended?: No DVT ppx is indicated from ortho standpoint -Follow-up with Dr Olvera in 1 weeks -Ortho to follow. [facility] Op Note OPERATIVE REPORT Patient: Date of : Location: [facility] Date of Service: Preoperative Diagnoses: Right index finger Flexor Tendon Sheath Infection - Suppurative Flexor Tenosynovitis Postoperative Diagnoses: Same Procedures: Incision & Drainage with Irrigation and Debridement of Right index finger Flexor Tendon Sheath Infection - Suppurative Flexor Tenosynovitis Surgeon: ALEJA OLVERA MD Coal Sample Tester: Virginia BAY PGY4 Anesthesia: MAC and Local Blood Loss: Minimal Complications: None Indications: 23-year-old male with Right index finger Flexor Tendon Sheath Infection. I have discussed preoperatively with her the complications, limitations, expectations, alternatives and risk of the planned surgical care which she understood & all of her questions were answered. The patient has provided written informed consent to proceed. After written consent was obtained and the proper operative sites were identified and marked, the patient was brought to the operating room and placed in the supine position on the operating room table with the Right arm extended upon a hand table. MAC anesthesia was induced & the Right upper extremity was prepped and draped in the usual sterile fashion. Procedure: After Esmarch exsanguination, the pneuomo-tourniquet was inflated to 250 millimeters of Mercury about the arm. A longitudinal incision was fashioned at the pulp tip of the finger to gain access to the distal end of the flexor sheath. Gross purulence was immediately encountered which was cultured. Blunt dissection revealed that the purulence tracked directly into the flexor tendon sheath. This sheath was accessed proximally for irrigation. Next, a transverse incision over the proximal aspect of the flexor tendon sheath. Dissection was carried carefully through the soft tissues, carefully protecting the radial and ulnar neurovascular bundles throughout the procedure. The soft tissues, surrounding the A-1 wesley, were cleared, and a longitudinal incision was made, fully releasing the A-1 wesley longitudinally under direct visualization. A whistle-tip catheter was advanced from proximal to distal along the length of the flexor sheath to allow for rpbhjti-tll-[id number] irrigation. With the irrigation catheter properly positioned, the sheath was irrigated with 500 ml of sterile saline until there was no visible evidence of residual infection. The catheter was removed and the wounds were further irrigated until clean. The incisions were all irrigated copiously with sterile saline for irrigation. The tourniquet was deflated and the fingers were immediately pink and well perfused. Hemostasis was easily obtained with direct pressure and electrocautery. The wounds were packed open and not closed with suture. The wounds were dressed thoroughly after local anesthetic was instilled for postoperative analgesia. The patient was placed in a well padded resting splint. The patient was awakened from anesthesia having tolerated the procedure without apparent complication. He was returned to the recovery room in stable condition. At the conclusion of the procedure, all needle, instrument and sponge counts were correct. Normal [facility] PROTHROMBIN TIMEon INR Coag (PPP) [Relative time] 1.0 {INR} Normal 0.9-1.1 [facility] Comment on above: Performed By: #### L [id number] #### Product Development: MARCELINA GIBBS ([id number]) [address] PT Coag (PPP) [Time] 11.3 s Normal 9.0-12.0 [facility] Comment on above: Performed By: #### L AB320 #### Product Development: MARCELINA GIBBS ([id number]) [facility]) [address] [place] [address] PT Coag (Bld) [Time]on 09-10 INR Coag (PPP) [Relative time] 1.0 {INR} 0.9 - 1.1 [facility] Interpretation and review of laboratory results Normal [facility] SEDIMENTATION RATE, AUTOMATE Don 09-11-2023 SEDIMENTATION RATE, ERYTHROCYTE 7 mm/hr Normal 0-10 [facility] Comment on above: Performed By: #### L [id number], [id number] ####Product Development: MARCELINA GIBBS ([id number])[facility])[address] [place] [address] XR Chest Single viewon 09-10 FINDINGS/IMPRESSION: 1. Lines/Tubes/Devices/H ardware: None. 2. Lungs: No consolidation or pulmonary edema. 3. Pleura: No pneumothorax or large pleural effusions. 4. Heart and mediastinum: Normal cardiomediastinal contours. Report Dictated on Electronically Signed By: Arthur Sheridan MD Electronically Signed Date/Time: 09/11/2023 2:06 PM EDT [facility] Patient Name: CHRISTIAN DANIELSON : 2000 Exam Date/Time: 09/11/2023 14:03 Procedure: XR CHEST 1 VIEW Ordering Provider: GERMAIN DOUGLAS Reason For Exam: PRE-ANESTHESIA SEDATION EXAM TYPE: RADIOLOGIC EXAMINATION, CHEST, SINGLE VIEW FRONTAL (CXR SINGLE VIEW) EXAM DATE AND TIME: 09/11/2023 2:03 PM EDT INDICATION: Preanesthesia sedation COMPARISON: None available. TECHNIQUE: A single frontal view of the thorax was obtained and reviewed. Special views: None. [facility] Arthur Sheridan MD - 09/11/2023 Patient Name: CHRISTIAN DANIELSON : 2000 Exam Date/Time: 09/11/2023 14:03 Procedure: XR CHEST 1 VIEW Ordering Provider: GERMAIN DOUGLAS Reason For Exam: PRE-ANESTHESIA SEDATION EXAM TYPE: RADIOLOGIC EXAMINATION, CHEST, SINGLE VIEW FRONTAL (CXR SINGLE VIEW) EXAM DATE AND TIME: 09/11/2023 2:03 PM EDT INDICATION: Preanesthesia sedation COMPARISON: None available. TECHNIQUE: A single frontal view of the thorax was obtained and reviewed. Special views: None. IMPRESSION: FINDINGS/IMPRESSION: 1. Lines/Tubes/Devices/H ardware: None. 2. Lungs: No consolidation or pulmonary edema. 3. Pleura: No pneumothorax or large pleural effusions. 4. Heart and mediastinum: Normal cardiomediastinal contours. Report Dictated on Electronically Signed By: Arthur Sheridan MD Electronically Signed Date/Time: 09/11/2023 2:06 PM EDT [facility] Radiology Study observation (narrative) [facility] XR Chest Single viewOrdered By: Arthur Sheridan on 09-11-2023 [employer] Work Phone: XR Hand - right 3 Viewson No acute osseous process. Report Dictated on Electronically Signed By: Carol Ann Teague MD Electronically Signed Date/Time: 09/11/2023 1:40 PM [facility] Patient Name: CHRISTIAN DANIELSON : 2000 Exam Date/Time: 09/11/2023 13:32 Procedure: XR HAND 3+ VIEWS RIGHT Ordering Provider: GERMAIN DOUGLAS Reason For Exam: right hand flexor tenosynovitis - pre-op INDICATION: 23-year-old male; right hand flexor tenosynovitis; preop. VIEWS: Right hand PA and oblique and lateral-3 images COMPARISON: None. FINDINGS: The bone mineralization is normal. The joint spaces are maintained. There is no acute fracture. [facility] Carol Ann Teague MD - 09/11/2023 Patient Name: CHRISTIAN DANIELSON : 2000 Exam Date/Time: 09/11/2023 13:32 Procedure: XR HAND 3+ VIEWS RIGHT Ordering Provider: GERMAIN DOUGLAS Reason For Exam: right hand flexor tenosynovitis - pre-op INDICATION: 23-year-old male; right hand flexor tenosynovitis; preop. VIEWS: Right hand PA and oblique and lateral-3 images COMPARISON: None. FINDINGS: The bone mineralization is normal. The joint spaces are maintained. There is no acute fracture. IMPRESSION: No acute osseous process. Report Dictated on Electronically Signed By: Carol Ann Teague MD Electronically Signed Date/Time: 09/11/2023 1:40 PM EDT [facility] Study observation (narrative) [employer] XR Hand - right 3 ViewsOrder ed By: Carol Ann Teague on 09-11-2023 [employer] Work Phone: ED NOTEon 09-10-2023 ED NOTE HNO ID: [id number] Author: LISETH ROSS RN Service: Nursing Author Type: Registered Nurse Type: ED Notes Filed: 09/10/2023 22:02 Note Text: RT index finger + swelling and redness. Denies in]jury. Normal [facility] ED PROV NOTEon 09-10-2023 ED PROV NOTE HNO ID: [id number] Author: CATHY ORR DO Service: Emergency Medicine Author Type: Physician Type: ED Provider Notes Filed: 09/10/2023 22:53 Note Text: Attending Note I evaluated the patient and personally participated in the valdez components. I agree with the resident's findings and plan as documented and have discussed the case and management of the patient's care with the resident. HPI: Patient is a 23 year old male with past medical hx as documented below who presents for finger swelling and pain. Patient states that for the past 3 days he has had persistent and somewhat worsening right index finger swelling. States that he was initially evaluated at outside ER and was told that they were suspicious of possible paronychia however he had no obvious fluid collection for bedside drainage. He was placed on Bactrim but states that since that time he feels that his swelling and his pain is worsened. He denies fever, chills, nausea, vomiting. Denies any trauma to the finger. Denies drainage or discharge. PAST MEDICAL HISTORY Diagnosis Date Concussion x2 Convergence insufficiency GERD (gastroesophageal reflux disease) H. pylori infection Insomnia EXAM: General: Hemodynamically stable and in no distress HEENT: Normocephalic, atraumatic. EOMI, PERRLA. CV: Regular rate and rhythm Respiratory: Clear to auscultation bilaterally Abdomen: Soft nontender without rebound or guarding present on exam Neurologic: Awake, alert. Normal speech pattern. Moving all 4 extremities at all major joints. No obvious sensory deficits of the extremities. Musculoskeletal: No obvious bony abnormalities. No midline cervical, thoracic, lumbosacral tenderness. Extremities: Swelling noted to the dorsal aspect of the right index finger. The swelling is most localized at the base of the nail favoring the left side. There does appear to be tenderness to palpation of the pulp with mild swelling noted. Full range of motion bilaterally. 2+ radial and ulnar pulses bilaterally. Extremities warm and well perfused. MDM: Patient is a 23 year old male with past medical hx as documented below who presents for finger swelling. See HPI. Possible etiologies of patient's presentation include but are not limited to paronychia, cellulitis, felon. Upon my evaluation the patient does have a fluctuant area at the dorsal aspect of the base of his right index finger nail. He also has corresponding cellulitis extending around this area as well with mild swelling noted to the tip of the index finger. He has full range of motion. He does have tenderness to palpation at the pulp but there is no fluctuance or obvious erythema in this area. Patient is already on Bactrim and overall is well-healing and was told that he will need to continue with this. Will plan for bedside incision and drainage of the area suspicious of paronychia. Given the progression of his swelling will also provide orthopedic hand follow-up and have him follow-up with his PCP. He will also be given strict return precautions if this should worsen. Anticipate discharge after incision and drainage. See resident note for final disposition and details. CATHY ORR 09/10/23 2253 Normal [facility] ED PROV NOTE HNO ID: [id number] Author: CATHY ORR DO Service: Emergency Medicine Author Type: Resident Type: ED Provider Notes Filed: 09/15/2023 01:12 Note Text: Attestation signed by Cathy Orr DO at 09/15/2023 1:12 AM Attending Physician Note: I evaluated the patient and personally participated in the valdez components. I agree with the resident's findings and plan as documented and have discussed the case and management of the patient's care with the resident. Valdez findings confirmed. I was present for valdez portions of and personally supervised any/all procedures. See separate attending note. Signature: Cathy Orr DO Date: 09/15/2023 Time: 1:12 AM ED Provider Note Patient Name: Christian Danielson : 2000 SERVICE DATE: 09/10/23 History Patient presents with: Finger Injury: RT index finger + swelling and redness. Denies in]jury. Patient is a 23-year-old male who presents the ED with a chief complaint of right second digit pain and swelling. History obtained from patient, patient has had approximately 1 week of worsening distal right lower extremity swelling. Patient states he was seen 2 days ago and placed on Bactrim. Patient states that swelling and pain has worsened over the last 2 days on Bactrim. Patient otherwise denies significant infectious symptoms including fever, chills, nausea, vomiting. Pertinent past medical history does not include diabetes mellitus. PAST MEDICAL HISTORY Diagnosis Date - Concussion x2 - Convergence insufficiency - GERD (gastroesophageal reflux disease) - H. pylori infection - Insomnia PAST SURGICAL HISTORY Procedure Laterality Date - TONSILLECTOMY HX FAMILY HISTORY Adopted: Yes Problem Relation Age of Onset - No Known Problems Mother - No Known Problems Father - No Known Problems Brother - No Known Problems Brother - No Known Problems Maternal Grandmother - No Known Problems Maternal Grandfather - No Known Problems Paternal Grandmother - No Known Problems Paternal Grandfather Social History Tobacco Use - Smoking status: Never - Smokeless tobacco: Never Vaping Use - Vaping Use: Former - Substances: Nicotine - Devices: Disposable Substance and Sexual Activity - Alcohol use: Not Currently - Drug use: Not Currently Types: Marijuana Comment: stopped 04/24/21 - Sexual activity: Not Currently ALLERGIES No Known Allergies Review of Systems See HPI Physical Exam Vitals [09/10/23 2202] BP Pulse Temp Temp src Resp SpO2 Weight Height 150/92 87 36.5 ?C (97.7 ?F) Temporal 18 98 % 77.1 kg (170 lb) 1.88 m (6' 2) Physical Exam Vitals and nursing note reviewed. Constitutional: General: He is not in acute distress. Appearance: Normal appearance. He is normal weight. He is not ill-appearing. HENT: Head: Normocephalic and atraumatic. Nose: Nose normal. Mouth/Throat: Mouth: Mucous membranes are moist. Pharynx: Oropharynx is clear. Eyes: Conjunctiva/sclera: Conjunctivae normal. Pupils: Pupils are equal, round, and reactive to light. Cardiovascular: Rate and Rhythm: Normal rate and regular rhythm. Pulses: Normal pulses. Heart sounds: Normal heart sounds. No murmur heard. No friction rub. Pulmonary: Effort: Pulmonary effort is normal. No respiratory distress. Breath sounds: Normal breath sounds. No stridor. No wheezing or rhonchi. Abdominal: General: Abdomen is flat. Bowel sounds are normal. There is no distension. Palpations: Abdomen is soft. There is no mass. Tenderness: There is no abdominal tenderness. There is no guarding or rebound. Hernia: No hernia is present. Musculoskeletal: General: Swelling and tenderness present. No deformity or signs of injury. Cervical back: Normal range of motion and neck supple. No rigidity. Comments: Erythema and edema noted to noted to distal portion right second digit. No significant decreased range of motion noted to PIP, DIP, MCP. Right upper extremity neurovascular intact. Skin: General: Skin is warm and dry. Capillary Refill: Capillary refill takes less than 2 seconds. Coloration: Skin is not jaundiced or pale. Neurological: General: No focal deficit present. Mental Status: He is alert and oriented to person, place, and time. Mental status is at baseline. Diagnostic Testing ED Labs Ordered and Reviewed - No data to display INCISION/DRAINAGE Date/Time: 09/10/2023 11:11 PM Performed by: Cathy Freed MD Authorized by: Cathy Orr DO Location: Indications for incision and drainage: Paronychia. Size: See physical exam Location: Finger. Pre-procedure details: Skin preparation: Chloraprep Anesthesia (see MAR for exact dosages): Anesthesia method: Nerve block Block needle gauge: 25 G Block anesthetic: Lido (more content not included)... Normal [facility] 36on 10-22-2022 36 Name of caller: Danial Contact phone number: [phone] Relationship to Patient: Grandfather Provider: Kyra Practice: [facility] Chief Complaint/Reason for Call: Danial is calling in to speak with Dr. Rae about getting an appointment for the patient, or advice about going to the ED. Message sent in ECW. Best time of day caller can be reached: Any Patient advised that office/PCP has 24-48 business hours to return their call: Yes Normal [facility] Katie 01-28-2021 CNPN Telephone ([id number]) CHRISTIAN DANIELSON ([id number]) [birth year] M Date Time Provider Department 01/28/21 BROOKE FOSTER [id number] During your visit today, we recorded the following information about you: Sara Henderson LPN 01/28/2021 2:04 PM Signed ----- Message from Brooke Foster MD sent at 01/27/2021 11:34 PM EDT ----- Pt needs appt to discuss labs and recent admission. I sent vit D supplements Sara Henderson LPN 01/29/2021 4:12 PM Signed Left message for Rell (dad) Sara Boo Ma 02/06/2021 1:29 PM Signed LM TO SCHEDULE APPT. Marcelina Boo Ma Allergies As of Date: 01/28/2021 (No Known Allergies) Date Reviewed: 01/03/2021 Reviewed by: Lena Maradiaga RN - Fully Assessed Reason for Visit: Results [95] Prescriptions as of 02/06/2021 - ergocalciferol 50,000 unit capsule (VITAMIN D2, DRISDOL) Take 1 capsule by mouth one time a week. Use as directed. - metoclopramide HCl (REGLAN) 5 mg tablet Take 10 mg by mouth twice daily. - ondansetron orally disintegrating (ZOFRAN ODT) 4 mg disintegrating tablet Take 1 tablet by mouth every 8 hours as needed for nausea/vomiting. - busPIRone (BUSPAR) 5 mg tablet Take 1 tablet by mouth twice daily. - omeprazole (PRILOSEC) 40 mg capsule Take 1 capsule by mouth once daily. Facility-Administered Medications as of 02/06/2021 - perflutren lipid microspheres 1.3 mL in NaCl (PF) 0.9% 10 mL injection (DEFINITY) - sodium chloride 0.9 % (flush) 10 mL (BD POSIFLUSH) Problem List As Of Date 01/28/2021 Noted Resolved Undiagnosed cardiac murmurs [R01.1] 11/06/2010 Epigastric pain [R10.13] 11/22/2020 Hyperbilirubinemia [E80.6] 01/02/2021 Severe protein-calorie malnutrition (HCC) [E43] 01/03/2021 Nausea AND vomiting [R11.2] 01/03/2021 Gastritis [K29.70] 01/03/2021 Encounter Status:Closed by MARCELINA BOO MA on 02/06/21 [id number] CHRISTIAN DANIELSON ([id number]) [birth year] Date Time Provider Department 11/13/20 JOSE MIGUEL DAVISON [id number] During your visit today, we recorded the following information about you: Sara Henderson LPN 11/13/2020 11:27 AM Signed Patient dad called to ask where does the patient go from here since his h-pylori is negative? Sara Davison MD 11/13/2020 12:35 PM Signed I would stop short of doing the full multiple-antibiotic style h.pylori regimen since it is negative. I would like to have him take a PPI however, which I am sending a prescription for. Ultimately if he is not improving with that, I would have them see GI for an opinion. Rx sent and referral written. Please let me know if any questions. Thanks, MD Sara Chamorro LPN 11/13/2020 2:37 PM Signed Patient dad notified and referral mailed. Sara Henderson JOVAN Allergies As of Date: 11/13/2020 (No Known Allergies) Date Reviewed: 11/07/2020 Reviewed by: Albert Rivero - Fully Assessed Reason for Visit: Patient Question [3017] Primary Visit Diagnosis:Dyspepsia [R10.13] Other Visit Diagnoses:Nausea [R11.0] H. pylori infection [A04.8] Order(s):omeprazole (PRILOSEC) 40 mg capsuleTake 1 capsule by mouth once daily.Disp: 30 capsuleRfl: 1 CONSULT TO GASTROENTEROLOGY [9010] Order #: [id number]: 1 FUTURE Prescriptions as of 11/13/2020 - omeprazole (PRILOSEC) 40 mg capsule Take 1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 pylori Ag [Presence] in Stool by Immunoassay H PYLORI AG BY EIA,STOOL Microbiology Routine Nausea Ordered: 12/15/2021 [facility] Work Phone: Comment on above: Ordered: 12/15/2021 End: 01-14-2023 Hepatobil syst imag inc gb w/pharma intervenj NM HEPATOBILIARY W EF AND/OR RX Radiology Routine Nausea 1 Occurrences starting 12/15/2021 until 01/14/2023 [facility] Work Phone: Comment on above: 1 Occurrences starting 12/15/2021 until 01/14/2023 [facility] Immunizations Immunization Date Immunization Notes Care Provider Fa cility 09-18-2020 COVID-19 vaccine, ag e 12+ yr (PFIZER-BIONTECH - PURPLE TOP) Jose Miguel Davison MD Work Phone: [facility] Work Phone: 08-28-2020 COVID-19 vaccine, ag e 12+ yr (PFIZER-BIONTECH - PURPLE TOP) Jose Miguel Davison MD Work Phone: [facility] Work Phone: 05-30-2007 hepatitis A vaccine, pediatric/adolescent dosage, 2 dose schedule External Provider [facility] 08-09-2006 diphtheria, tetanus toxoids and acellular pertussis vaccine Jose Miguel Davison MD Work Phone: [facility] Work Phone: 08-09-2006 diphtheria, tetanus toxoids and acellular pertussis vaccine, unspecified formulation External Provider [facility] 08-09-2006 hepatitis A vaccine, pediatric/adolescent dosage, 2 dose schedule External Provider [facility] 08-09-2006 measles, mumps and rubella virus vaccine External Provider [facility] 08-09-2006 poliovirus vaccine, inactivated External Provider [facility] 08-09-2006 varicella virus vaccine External Provider [facility] 05-27-2006 diphtheria, tetanus toxoids and acellular pertussis vaccine Jose Miguel Davison MD Work Phone: [facility] Work Phone: 05-27-2006 diphtheria, tetanus toxoids and acellular pertussis vaccine, unspecified formulation External Provider [facility] 05-27-2006 haemophilus influenz ae type b vaccine, PRP-T conjugate External Provider [facility] 05-27-2006 hepatitis A vaccine, pediatric/adolescent dosage, 2 dose schedule External Provider [facility] 05-27-2006 measles, mumps, rubella, and varicella virus vaccine External Provider [facility] 12-30-2004 rubella virus vaccine External Provi geeta [facility] 08-21-2003 measles virus vaccine External Provi geeta [facility] 06-05-2003 diphtheria, tetanus toxoids and acellular pertussis vaccine Jose Miguel Davison MD Work Phone: [facility] Work Phone: 06-05-2003 diphtheria, tetanus toxoids and acellular pertussis vaccine, unspecified formulation External Provider [facility] 06-05-2003 trivalent poliovirus vaccine, live, oral External Provider [facility] 01-30-2003 diphtheria, tetanus toxoids and acellular pertussis vaccine Jose Miguel Davison MD Work Phone: [facility] Work Phone: 01-30-2003 diphtheria, tetanus toxoids and acellular pertussis vaccine, unspecified formulation External Provider [facility] 01-30-2003 hepatitis B vaccine, pediatric or pediatric/adolescent dosage External Provider [facility] 01-30-2003 trivalent poliovirus vaccine, live, oral External Provider [facility] 2002 diphtheria, tetanus toxoids and acellular pertussis vaccine Jose Miguel Davison MD Work Phone: [facility] Work Phone: 2002 diphtheria, tetanus toxoids and acellular pertussis vaccine, unspecified formulation External Provider [facility] 2002 trivalent poliovirus vaccine, live, oral External Provider [facility] 2002 hepatitis B vaccine, pediatric or pediatric/adolescent dosage External Provider [facility] 2002 hepatitis B vaccine, pediatric or pediatric/adolescent dosage External Provider [facility] NEGATED: Highlighted row has not occurred!09-11-2023 tetanus toxoid, reduced diphtheria toxoid, and acellular pertussis vaccine, adsorbed Alek Germain MD Work Phone: [facility] Comment on above: Deferred: Other Payers Date Payer Category Payer Private Health Insurance [id number] 2021 Private Health Insurance BESSYALIX Prasad ABHINAV OAP [id number] 2021-Present [phone] [address] [place] [address] Open Access [id number] 2021 Private Health Insurance [id number] 2021 Unknown [employer] BLUE CARD PPO OOS [id number] 2021-Present [phone] [address] [place] [address] PPO [id number] 2021 Private Health Insurance [id number] Social History Date Type Detail Facility [facility]: [facility] Start: 12-18-2019 Tobacco use and exposure Never used [facility] Start: 12-18-2019 Alcohol intake Lifetime non-d sepncer (finding) [facility] Start: 12-18-2019 History SDOH Alcohol Frequency 1 [facility] Start: 2002 Sex Assigned At Not on file [facility] Start: 07-20-2021 End: 12-15-2021 Exposure to SARS-CoV-2 (event) Not sure [facility] Start: 07-30-2021 End: 09-10-2023 Alcohol intake Ex-drinker (finding) [facility] Start: 09-11-2023 Tobacco smoking stat [facility] Tobacco smoking consumption unknown [facility] Start: 04-09-2020 End: 09-12-2023 Gender identity Not on file [facility] Start: 04-09-2020 End: 09-12-2023 History of Social function [facility] Within the last year , have you been afraid of your partner or ex-partner? No [facility] How often to you hav e a drink containing alcohol? 2-3 time sa week [facility] How many standard dr inks containing alcohol do you have on a typical day? 1 or 2 [facility] How often do you hav e 6 or more drinks on 1 occasion? Less than monthly [facility] How often to you hav e a drink containing alcohol? Never [facility] Average Number of Drinks Not on file [facility] Clinical Notes 07-16-2020 to 05-04-2024 Aristides Lucas, RT(R) - 05/04/2024 1:00 PM ESTCare Coordination - Piedad Meraz RN - 09/14/2023 2:12 PM EDTCare Coordination - Piedad Meraz RN - 09/14/2023 2:12 PM EDTDischarge Instructions Note Date & Type Note Facility 05-04-2024 History of Present illness Narrative Radiology Service Progress Note PATIENT NAME: Christian Danielson DATE OF SERVICE: May 04, 2024 TIME: 1:12 PM PATIENT IDENTITY VERIFICATION COMPLETED USING TWO (2) IDENTIFIERS: Name and Date of confirmed by patient verbally and Name and Date of confirmed by identification band. FALL SCREENING: Has the patient had 2 falls in the last year or 1 fall with injury or currently using an Ambulatory Assistive Device (Walker, Cane, Wheelchair, Crutches, etc.)? No PATIENT GENDER DATA: Male PATIENT RELEVANT IMPLANT DATA REVIEWED: Not Applicable PATIENT PRESENTS WITH AN IMPLANTABLE OR ATTACHED COMMANDING OFFICER GARAGE: No RADIOLOGY DEPARTMENT: General X-ray: Exam(s) Completed: Chest X-Ray PERIPHERAL IV DATA: Not applicable SIGNED BY: SINDHU Marie) May 04, 2024 1:12 PM documented in this encounter [facility] 05-04-2024 Note HNO ID: [id number] Author: ARISTIDES LUCAS RT (R) Service: Radiology Author Type: Technologist Type: Progress Notes Filed: 05/04/2024 13:12 Note Text: Radiology Service Progress Note PATIENT NAME: Christian Danielson DATE OF SERVICE: May 04, 2024 TIME: 1:12 PM PATIENT IDENTITY VERIFICATION COMPLETED USING TWO (2) IDENTIFIERS: Name and Date of confirmed by patient verbally and Name and Date of confirmed by identification band. FALL SCREENING: Has the patient had 2 falls in the last year or 1 fall with injury or currently using an Ambulatory Assistive Device (Walker, Cane, Wheelchair, Crutches, etc.)? No PATIENT GENDER DATA: Male PATIENT RELEVANT IMPLANT DATA REVIEWED: Not Applicable PATIENT PRESENTS WITH AN IMPLANTABLE OR ATTACHED COMMANDING OFFICER GARAGE: No RADIOLOGY DEPARTMENT: General X-ray: Exam(s) Completed: Chest X-Ray PERIPHERAL IV DATA: Not applicable SIGNED BY: SINDHU Marie) May 04, 2024 1:12 PM [facility] 09-14-2023 Note Formatting of this n ote is different from the original. Images from the original note were not included. Care Management Progress Note Pt is medically ready for discharge with dc order in place. Pt to be discharged with PO ATB for 4 weeks. No , IV ATB's needed. Discharge plan is home. Family to transport. TCC to follow and assist as needed. Discharge Milestones and Delays Expected Date/Time: 09/14/2023 Morning Disposition: Home or Self Care Transport status: No current request Discharge Milestones Completed Place discharge order Complete med reconciliation Case mgmt discharge readiness Clinical Stability Diagnsotic Workup Expected Discharge History Expected Date/Time Set By Reviewed At 09/14/2023 Morning Baljeet Aldrich MD 09/14/2023 10:39 AM 09/15/2023 Piedad Meraz RN 09/14/2023 8:35 AM 09/14/2023 Joanie Conklin RN 09/13/2023 11:10 AM 09/14/2023 Donnie Swan MD 09/11/2023 7:03 PM 09/14/2023 Simona Phillips DO 09/11/2023 4:49 PM Length of Stay (Days): 3 GMLOS: 2.2 [facility] 09-14-2023 Note Formatting of this n ote is different from the original. Images from the original note were not included. Care Management Progress Note Pt is medically ready for discharge with dc order in place. Pt to be discharged with PO ATB for 4 weeks. No , IV ATB's needed. Discharge plan is home. Family to transport. TCC to follow and assist as needed. Discharge Milestones and Delays Expected Date/Time: 09/14/2023 Morning Disposition: Home or Self Care Transport status: No current request Discharge Milestones Completed Place discharge order Complete med reconciliation Case mgmt discharge readiness Clinical Stability Diagnsotic Workup Expected Discharge History Expected Date/Time Set By Reviewed At 09/14/2023 Morning Baljeet Aldrich MD 09/14/2023 10:39 AM 09/15/2023 Piedad Meraz RN 09/14/2023 8:35 AM 09/14/2023 Joanie Conklin RN 09/13/2023 11:10 AM 09/14/2023 Donnie Swan MD 09/11/2023 7:03 PM 09/14/2023 Simona Phillips DO 09/11/2023 4:49 PM Length of Stay (Days): 3 GMLOS: 2.2 [facility] 09-14-2023 Note Care Management Prog ress Note Pt is medically ready for discharge with dc order in place. Pt to be discharged with PO ATB for 4 weeks. No , IV ATB's needed. Discharge plan is home. Family to transport. TCC to follow and assist as needed. Discharge Milestones and Delays Expected Date/Time: 09/14/2023 Morning Disposition: Home or Self Care Transport status: No current request Discharge Milestones Completed Place discharge order Complete med reconciliation Case mgmt discharge readiness Clinical Stability Diagnsotic Workup Expected Discharge History Expected Date/Time Set By Reviewed At 09/14/2023 Morning Baljeet Aldrich MD 09/14/2023 10:39 AM 09/15/2023 Piedad Meraz RN 09/14/2023 8:35 AM 09/14/2023 Joanie Conklin RN 09/13/2023 11:10 AM 09/14/2023 Donnie Swan MD 09/11/2023 7:03 PM 09/14/2023 Simona Phillips DO 09/11/2023 4:49 PM Length of Stay (Days): 3 GMLOS: 2.2 [facility] 09-14-2023 Miscellaneous Notes Images from the original note were not included. Care Management Progress Note Pt is medically ready for discharge with dc order in place. Pt to be discharged with PO ATB for 4 weeks. No , IV ATB's needed. Discharge plan is home. Family to transport. TCC to follow and assist as needed. Discharge Milestones and Delays Expected Date/Time: 09/14/2023 Morning Disposition: Home or Self Care Transport status: No current request Discharge Milestones Completed Place discharge order Complete med reconciliation Case mgmt discharge readiness Clinical Stability Diagnsotic Workup Expected Discharge History Expected Date/Time Set By Reviewed At 09/14/2023 Morning Baljeet Aldrich MD 09/14/2023 10:39 AM 09/15/2023 Piedad Meraz RN 09/14/2023 8:35 AM 09/14/2023 Joanie Conklin RN 09/13/2023 11:10 AM 09/14/2023 Donnie Swan MD 09/11/2023 7:03 PM 09/14/2023 Simona Phillips DO 09/11/2023 4:49 PM Length of Stay (Days): 3 GMLOS: 2.2 SW consult submitted for IV antibiotics. SW consulted w /TCC who manages this issue, no concerns for SW involvement reported at this time. Care Managment Initial Assessment Date: 09/13/2023 Patient Name: Christian Danielson : 2000 Patient Information Source of Information: Patient Cognition/Language: WFL - Within Functional Limits Permission given to speak with patient medical billing representative/caregiver as indicated: Confirmation of Payer with patient/family: Yes Payer Name: Aetna : No Confirmation of Primary Care Physician: Confirmed PCP Name: Dr Janice Matthews Seen in last 2 years?: Yes Primary Caregiver: Self If assistance needed, confirmed caregiver ready, willing and able to care for patient at discharge: Confirmed with: Living Arrangements Current Residence: House Number of Floors 1 Number of Entry Steps: Bed/Bath Levels: Both first floor Facility: Facility Name: Plan to Return: Yes Lives with: Parent Support Systems: Parent, Friends/neighbors Activities of Daily Living Ambulation: Independent Bathing/Dressing: Independent Elimination/Continence/Toileting: Independent Feeding: Independent Who Assists with Activities of Daily Living: Instrumental Activities of Daily Living Prescription Coverage: Yes Pharmacy Used: [address] Medication Management: Independent Transportation/Shopping: Independent Transportation Mode: Car Needs Assistance with Transportation at Discharge: No Meal Preparation: Independent Laundry/Cleaning: Independent Finances/Bill Paying: Independent Communication: Independent Types of Care Services/Equipment Utilized Care Services: Dialysis Type: NA Durable Medical Equipment: Patient's Goal/Discharge Plan Patient expects to be discharged to: home with parents Discharge Planning Actions: Continue to follow Patient's Choice Rights and [employer] and Collaborative Relationships Disclosed as Indicated for Post-Acute Care: Interdisciplinary Team Engagement: Other (Comment) (ID, wound care) Social Work Referral for: Additional Information: 23 year old male admitted to H5, receiving IV zosyn and vancomycin for Tenosynovitis. This TCC met with patient at bedside and introduced self and role. He lives with his parents, and DCP is to return home. Consults to ID and Wound Care. No transportation needs. Patient has PCP, and insurance for medications. No DC needs identified. TCC will continue to follow. Joanie Conklin RN Patient's father, Rell, updated by RN at this time via phone call. Report called to RN on H5 by Antonio Christensen RN. No questions asked. OPERATIVE REPORT Patient: Date of : Location: [facility] Date of Service: Preoperative Diagnoses: Right index finger Flexor Tendon Sheath Infection - Suppurative Flexor Tenosynovitis Postoperative Diagnoses: Same Procedures: Incision & Drainage with Irrigation and Debridement of Right index finger Flexor Tendon Sheath Infection - Suppurative Flexor Tenosynovitis Surgeon: ALEJA OLVERA MD Coal Sample Tester: [place] BAY PGY4 Anesthesia: MAC and Local Blood Loss: Minimal Complications: None Indications: 23-year-old male with Right index finger Flexor Tendon Sheath Infection. I have discussed preoperatively with her the complications, limitations, expectations, alternatives and risk of the planned surgical care which she understood & all of her questions were answered. The patient has provided written informed consent to proceed. After written consent was obtained and the proper operative sites were identified and marked, the patient was brought to the operating room and placed in the supine position on the operating room table with the Right arm extended upon a hand table. MAC anesthesia was induced & the Right upper extremity was prepped and draped in the usual sterile fashion. Procedure: After Esmarch exsanguination, the pneuomo-tourniquet was inflated to 250 millimeters of Mercury about the arm. A longitudinal incision was fashioned at the pulp tip of the finger to gain access to the distal end of the flexor sheath. Gross purulence was immediately encountered which was cultured. Blunt dissection revealed that the purulence tracked directly into the flexor tendon sheath. This sheath was accessed proximally for irrigation. Next, a transverse incision over the proximal aspect of the flexor tendon sheath. Dissection was carried carefully through the soft tissues, carefully protecting the radial and ulnar neurovascular bundles throughout the procedure. The soft tissues, surrounding the A-1 wesley, were cleared, and a longitudinal incision was made, fully releasing the A-1 wesley longitudinally under direct visualization. A whistle-tip catheter was advanced from proximal to distal along the length of the flexor sheath to allow for [id number] irrigation. With the irrigation catheter properly positioned, the sheath was irrigated with 500 ml of sterile saline until there was no visible evidence of residual infection. The catheter was removed and the wounds were further irrigated until clean. The incisions were all irrigated copiously with sterile saline for irrigation. The tourniquet was deflated and the fingers were immediately pink and well perfused. Hemostasis was easily obtained with direct pressure and electrocautery. The wounds were packed open and not closed with suture. The wounds were dressed thoroughly after local anesthetic was instilled for postoperative analgesia. The patient was placed in a well padded resting splint. The patient was awakened from anesthesia having tolerated the procedure without apparent complication. He was returned to the recovery room in stable condition. At the conclusion of the procedure, all needle, instrument and sponge counts were correct. Date: 09/11/2023 Location: [facility] OR Name: Christian Danielson, : 2000, Diagnosis Pre-op Diagnosis * Tenosynovitis [M65.9] Post-op Diagnosis * Tenosynovitis [M65.9] Procedures INCISION AND DRAINAGE OF TENDON SHEATH DIGIT AND OR PALM 99153 - DE DRAINAGE TENDON SHEATH DIGIT&/PALM EACH Surgeons * Aleja Olvera - Primary Procedure Summary Anesthesia: Choice ASA: I Estimated Blood Loss: 0 mL Drains: * None in log * Specimens ID Source Type Tests Collected By Collected At Frozen? Priority Lab ID A Finger, Right Swab FUNGAL CULTURE AEROBIC AND ANAEROBIC CULTURE WITH STAIN Aleja Olvera MD 09/11/23 1710 [id number], [id number], [id number] Description: RIGHT INDEX FINGER Staff: [employer] Supervisor: Juliann Walker RN Scrub Person: Jessica Abernathy Findings: Purulence within flexor tendon sheath Complications: None; patient tolerated the procedure well. Specimens Collected: Order Name Source Comment Collection Info Order Time FUNGAL CULTURE Finger, Right Collected By: Aleja Olvera MD 09/11/2023 5:10 PM AEROBIC AND ANAEROBIC CULTURE WITH STAIN Finger, Right Collected By: Aleja Olvera MD 09/11/2023 5:10 PM Wound Class: Class IV: Dirty Blood Products: None Prophylactic Antibiotics: Procedure appropriate prophylactic antibiotic(s) given within 1 hour of surgical incision (two hours if receiving Vancomycin or flouroquinolone) -Operative plans: No further plans for surgery, but will monitor patient closely -Weight bearing: RLE: WBAT LLE: WBAT RUE: NWB LUE: WBAT -Range of motion parameters: ROM as tolerated -Immobilization: Splint to RUE. Keep clean, dry, and intact. -Will defer decision for or against ID consult to primary medical team -Antibiotics: Continue empiric antibiotics, OR cultures pending -Dressings: Keep dressings on until the follow up office visit. Change as needed for saturation. -Other: Hand soaks TID per order set, pull packing prior to soaking -Diet: no restrictions from ortho standpoint -Labs: No further labs needed from ortho standpoint. -PT/OT -PT recommended outpatient/post discharge?: No formal PT is needed -Medical management, dvt ppx and pain control per primary -DVT ppx recommended?: No DVT ppx is indicated from ortho standpoint -Follow-up with Dr Olvera in 1 weeks -Ortho to follow. documented in this encounter [facility] 09-14-2023 Note Formatting of this n ote might be different from the original. SW consult submitted for IV antibiotics. SW consulted w /TCC who manages this issue, no concerns for SW involvement reported at this time. [facility] 09-14-2023 Note Formatting of this n ote might be different from the original. SW consult submitted for IV antibiotics. SW consulted w /TCC who manages this issue, no concerns for SW involvement reported at this time. [facility] 09-14-2023 History of Present illness Narrative Vancomycin therapy has been discontinued by KURT Gonzalez CNP on 09/14/23. Thank you for the consult. Pharmacy signing off for vancomycin dosing. Bravo Quispe RPh, PharmD. Date: 09/14/23 Time: 10:54 AM Images from the original note were not included. [facility] - Infectious Diseases PEN [employer]ER Progress Note Subjective: Following for R index flexor tenosynovitis with purulence in tenon sheath Notes reviewed. R hand pain and swelling is improved. Has increase flexion of his digits. Incisions without expressible purulence. Cultures growing MSSA. He is tolerating abx. Objective: Vitals: Patient Vitals for the past 24 hrs: BP Temp Temp src Pulse Resp SpO2 09/14/23 0513 119/68 36.7 C (98 F) Temporal 51 12 99 % 09/13/23 1712 124/76 36.4 C (97.6 F) Temporal 61 18 99 % Physical Exam Vitals and nursing note reviewed. Constitutional: General: He is not in acute distress. Appearance: Normal appearance. He is not toxic-appearing. Comments: Alert, pleasant and conversant male, NAD. HENT: Head: Normocephalic and atraumatic. Mouth/Throat: Mouth: Mucous membranes are moist. Pharynx: Oropharynx is clear. Eyes: Conjunctiva/sclera: Conjunctivae normal. Cardiovascular: Rate and Rhythm: Normal rate and regular rhythm. Heart sounds: No murmur heard. Pulmonary: Effort: Pulmonary effort is normal. No respiratory distress. Breath sounds: Normal breath sounds. No wheezing, rhonchi or rales. Comments: Breathing comfortable on room air Abdominal: General: Bowel sounds are normal. There is no distension. Palpations: Abdomen is soft. Tenderness: There is no abdominal tenderness. There is no guarding. Musculoskeletal: General: No swelling. Cervical back: Neck supple. Right lower leg: No edema. Left lower leg: No edema. Comments: + incisions to distal R index finger and palm clean without expressible purulence. Overall swelling improved. +flexion and extension of digits. Skin: General: Skin is warm and dry. Findings: No rash. Neurological: General: No focal deficit present. Mental Status: He is alert and oriented to person, place, and time. Cranial Nerves: No cranial nerve deficit. Psychiatric: Mood and Affect: Mood normal. Behavior: Behavior normal. Labs: Recent Labs 09/12/23 0103 09/13/23 0206 09/14/23 0831 NA 134* 134* 139 K 4.2 3.4* 4.3 CL 102 103 105 CO2 20* 25 22 BUN 15 14 14 CREATININE 0.98 1.00 0.93 GLUCOSE 140* 111* 87 CALCIUM 9.2 8.9 9.7 Recent Labs 09/11/23 1347 09/12/23 0103 09/13/23 0206 09/14/23 0158 WBC 10.3 9.4 8.7 6.0 HGB 14.7 13.9 12.9* 13.3 HCT 41.8 40.1 36.4* 38.2* PLT 284 269 239 246 LYMPHOPCT 18.2 3* 26.7 38.3 MONOPCT 11.8 0* 9.9 10.4 BASOPCT 0.6 -- 0.7 1.2 NEUTROABS 7.0 -- 5.3 2.9 Micro: 09/10- R finger cx- MSSA 09/10- R finger fungal cx- NGTD CRP 10.5 ESR 7 Lines: PIV Radiography/Echo/Other: 09/10- CXR 1. Lines/Tubes/Devices/Hardware: None. 2. Lungs: No consolidation or pulmonary edema. 3. Pleura: No pneumothorax or large pleural effusions. 4. Heart and mediastinum: Normal cardiomediastinal contours. 09/10- XR R hand he bone mineralization is normal. The joint spaces are maintained. There is no acute fracture. Impression: No acute osseous process. Antimicrobials,Start/End Dates: Pip/tazo: 09/10- present Vancomycin: 09/10- present Amp/sulb: (09/10) Impression: Status post I&D of the R index finger and flexor tendon sheath (09/11/2023) R index flexor tenosynovitis with purulence in tenon sheath MSSA infection Plan: Stop vancomycin and pip/tazo. Start Cephalexin 1g po q8h x4 weeks total through 10/09/2023. Discuss if symptoms worsens on po abx he will need to return for IV abx. Pt and his father verbalizes understanding. Opportunity given for questions and all questions answered to the patient's satisfaction. Close follow-up with ORS. Will schedule f/u with him near EOT to assess his wounds. Ok to discharge from ID standpoint. Plan d/w Dr. Lozano. Hyacinth Horowitz CNP [facility] - Infectious Diseases 10:48 AM 09/14/2023 Based on diagnoses and management, combination of acute and chronic problems, exacerbations and/or acuity, this visit should be considered to be of moderate complexity. Pharmacy to Dose Vancomycin - Progress Note Lab Results Component Value Date CREATININE 0.93 09/14/2023 BUN 14 09/14/2023 WBC 6.0 09/14/2023 VANCOTROUGH 21.8 (H) 09/13/2023 Doses, serum creatinine, and vancomycin levels interfaced automatically to [employer] and data has been analyzed and interpreted. Infectious Diagnosis: Bone and Joint Infection Est CrCl: 125 mL/min (Cockcroft-Gault) Assessment: Current regimen vancomycin 1250 mg every 12 hours. Predicted AUC = 493 mg/L*hr (goal 400-600 mg/L*hr) PAUC = 83% (probability that AUC is >400 mg/L*hr) Pconc = 18% (probability that Ctrough is above 20 mcg/mL (toxicity)) Plan: Is the current dose therapeutic? [x] Yes - obtain next level on 09/18/23 unless predicted AUC is sub-/supra-therapeutic or change in serum creatinine. Trend serum creatinine. Trend AUC using Bayesian Modeling. Orders placed. DATE: 09/14/23 TIME: 9:39 AM Bravo Quispe RPh, PharmD. Med Team Progress Note Christian Danielson : 2000(23 y.o.) Date: September 14, 2023 Med Team: D Attending: Dr. Robles Chief Complaint: hand pain Subjective: - No acute events overnight. - Currently, patient sitting up in bed soaking hand. Patient's father is at bedside. States his pain is an 8-9/10 during soaking hand. However, states otherwise pain well controlled. Decrease in pain regimen was tolerable yesterday. Discussed ok for discharge pending antibiotic recs from ID. Had a BM yesterday after miralax. PRN meds used in last 24hrs: IV dilaudid 0.25mg x1, ibuprofen 600mg x1, oxycodone 5mg x2, miralax Review of Systems Constitutional: Negative for appetite change, chills and fever. Respiratory: Negative for shortness of breath. Cardiovascular: Negative for chest pain. Gastrointestinal: Negative for abdominal pain, constipation, diarrhea, nausea and vomiting. Skin: Positive for wound (and pain). Psychiatric/Behavioral: Negative for agitation and confusion. Scheduled Meds:acetaminophen, 1,000 mg, Oral, q8h enoxaparin, 40 mg, SubCUTAneous, Daily piperacillin-tazobactam, 3,375 mg, IntraVENous, q8h vancomycin, 1,250 mg, IntraVENous, q12h Continuous Infusions: Objective: BP 119/68 (BP Location: Left arm, Patient Position: Lying) Pulse 51 Temp 36.7 C (98 F) (Temporal) Resp 12 Ht 6' 2 (1.88 m) Wt 170 lb (77.1 kg) SpO2 99% BMI 21.83 kg/m Physical Exam Vitals and nursing note reviewed. Constitutional: Appearance: Normal appearance. He is not ill-appearing. HENT: Head: Normocephalic and atraumatic. Mouth/Throat: Mouth: Mucous membranes are moist. Eyes: Conjunctiva/sclera: Conjunctivae normal. Pupils: Pupils are equal, round, and reactive to light. Cardiovascular: Rate and Rhythm: Normal rate and regular rhythm. Pulses: Normal pulses. Heart sounds: Normal heart sounds. Pulmonary: Effort: Pulmonary effort is normal. No respiratory distress. Breath sounds: Normal breath sounds. Abdominal: General: Bowel sounds are normal. There is no distension. Palpations: Abdomen is soft. Tenderness: There is no abdominal tenderness. Musculoskeletal: General: Tenderness (R hand) present. Right lower leg: No edema. Left lower leg: No edema. Comments: Incision on R palm and digit clean with dried blood. Neurovascularly intact. TTP Skin: General: Skin is warm and dry. Neurological: General: No focal deficit present. Mental Status: He is alert and oriented to person, place, and time. Select Labs within last 24 hours Auto WBC Date Value Ref Range Status 09/14/2023 6.0 3.6 - 10.7 10*3/uL Final Hemoglobin Date Value Ref Range Status 09/14/2023 13.3 13.0 - 18.0 g/dL Final Hematocrit Date Value Ref Range Status 09/14/2023 38.2 (L) 40.0 - 52.0 % Final Platelets Date Value Ref Range Status 09/14/2023 246 140 - 440 10*3/uL Final MCV Date Value Ref Range Status 09/14/2023 86.6 77.0 - 99.0 fL Final SODIUM Date Value Ref Range Status 09/14/2023 139 135 - 145 mmol/L Final POTASSIUM Date Value Ref Range Status 09/14/2023 4.3 3.5 - 5.1 mmol/L Final CHLORIDE Date Value Ref Range Status 09/14/2023 105 98 - 107 mmol/L Final CARBON DIOXIDE Date Value Ref Range Status 09/14/2023 22 22 - 30 mmol/L Final UREA NITROGEN Date Value Ref Range Status 09/14/2023 14 9 - 20 mg/dL Final CREATININE Date Value Ref Range Status 09/14/2023 0.93 0.66 - 1.25 mg/dL Final GLUCOSE Date Value Ref Range Status 09/14/2023 87 70 - 100 mg/dL Final CALCIUM Date Value Ref Range Status 09/14/2023 9.7 8.4 - 10.4 mg/dL Final No results found for: AST, ALT, PROT, BILITOT, ALKPHOS, INR, APTT, LIPASE No results found for: CKTOTAL, CKMB, TROPONINI No results found for: PROCAL, CHOL, TRIG, HDL, TSH, VITD25, HGBA1C, VANCOTROUGH Assessment and Plan: R index finger suppurative flexor tenosynovitis, s/p I&D -XR hand: no acute osseus process -wound gram stain: rare gram + cocci in clusters -wound culture: few MSSA Plan -orthopedic surgery signed off 09/12 -s/p OR with orthopedic surgery for I&D 09/10 evening. No plans for further surgery -wound/post-op care per ortho -infectious disease consult, appreciate recs -recommend PO cephalexin 1g q8hrs through 10/09/23 -inpatient vancomycin and zosyn (pharmacy to dose vanc) -pain regimen: scheduled tylenol, PRN ibuprofen 600mg, PRN oxycodone 2.5-5mg q4hrs --> q6hrs, PRN IV dilaudid 0.25mg q8hrs for dressing changes/4th line breakthrough pain -discharge pain recs: PRN tylenol, PRN ibuprofen, PRN oxycodone 5mg q6hrs x3 days -daily BMP, CBC Other Problems: Hypokalemia, resolved -K 3.4 yesterday --> 4.3 today s/p replacement Chronic Problems and Follow Up Items: Dispo: discharge home on PO antibiotics - Goals of Care: FULL CODE - DVT Prophylaxis: Lovenox 40 q24hr - CrCl >30 - GI Prophylaxis: Not Indicated - Diet: General Associated attestation - Juju Robles DO - 09/14/2023 5:06 PM EDT I saw and evaluated the patient. I agree with the findings and plan of care as documented in the resident's note, except as noted in Green text. Patient seen and examined personally during bedside teaching rounds (Date of Service: 09/14/23) -discharge today -outpt PCP is Dr. Ibis Gao. Reviewed discharge instructions, had ID office card at bedside for follow up with ID 7AM-5PM: contact resident on [facility] Med D (find by hovering over attending's name on left side of patient's chart) 5PM-7AM: contact AI3 res Images from the original note were not included. [facility] Medical [facility] - Infectious Diseases PEN [employer] Progress Note Subjective: Following for R index flexor tenosynovitis with purulence in tenon sheath Notes reviewed. Father at bedside. R hand pain and swelling improved. Doing hand soaks. Cultures still in process. Tolerating abx. Objective: Vitals: Patient Vitals for the past 24 hrs: BP Temp Temp src Pulse Resp SpO2 09/13/23 0553 118/60 36.7 C (98.1 F) Temporal (!) 46 16 98 % 09/12/23 2111 142/88 36.8 C (98.3 F) Temporal 64 17 100 % 09/12/23 1714 131/76 36.3 C (97.4 F) Temporal 52 16 98 % 09/12/23 1306 139/81 37.2 C (99 F) Temporal 54 16 99 % Physical Exam Vitals and nursing note reviewed. Constitutional: General: He is not in acute distress. Appearance: Normal appearance. He is not toxic-appearing. Comments: Alert, pleasant and conversant male, NAD. HENT: Head: Normocephalic and atraumatic. Mouth/Throat: Mouth: Mucous membranes are moist. Pharynx: Oropharynx is clear. Eyes: Conjunctiva/sclera: Conjunctivae normal. Cardiovascular: Rate and Rhythm: Normal rate and regular rhythm. Heart sounds: No murmur heard. Pulmonary: Effort: Pulmonary effort is normal. No respiratory distress. Breath sounds: Normal breath sounds. No wheezing, rhonchi or rales. Comments: Breathing comfortable on room air Abdominal: General: Bowel sounds are normal. There is no distension. Palpations: Abdomen is soft. Tenderness: There is no abdominal tenderness. There is no guarding. Musculoskeletal: General: No swelling. Cervical back: Neck supple. Right lower leg: No edema. Left lower leg: No edema. Comments: + R hand dressing and acewrap in place; no strike through (wound photos reviewed- R distal index finger incision with clean wound bed. 2nd incision to palmar aspect clean. Surrounding edema appears improved) Skin: General: Skin is warm and dry. Findings: No rash. Neurological: General: No focal deficit present. Mental Status: He is alert and oriented to person, place, and time. Cranial Nerves: No cranial nerve deficit. Psychiatric: Mood and Affect: Mood normal. Behavior: Behavior normal. Labs: Recent Labs 09/11/23 1442 09/12/23 0103 09/13/23 0206 NA 136 134* 134* K 4.6 4.2 3.4* CL 105 102 103 CO2 20* 20* 25 BUN 16 15 14 CREATININE 1.12 0.98 1.00 GLUCOSE 98 140* 111* CALCIUM 9.5 9.2 8.9 Recent Labs 09/11/23 1347 09/12/23 0103 09/13/23 0206 WBC 10.3 9.4 8.7 HGB 14.7 13.9 12.9* HCT 41.8 40.1 36.4* PLT 284 269 239 LYMPHOPCT 18.2 3* 26.7 MONOPCT 11.8 0* 9.9 BASOPCT 0.6 -- 0.7 NEUTROABS 7.0 -- 5.3 Micro: 09/10- R finger cx- in process; + gpc clusters 09/10- R finger fungal cx- NGTD CRP 10.5 ESR 7 Lines: PIV Radiography/Echo/Other: 09/10- CXR 1. Lines/Tubes/Devices/Hardware: None. 2. Lungs: No consolidation or pulmonary edema. 3. Pleura: No pneumothorax or large pleural effusions. 4. Heart and mediastinum: Normal cardiomediastinal contours. 09/10- XR R hand he bone mineralization is normal. The joint spaces are maintained. There is no acute fracture. Impression: No acute osseous process. Antimicrobials,Start/End Dates: Pip/tazo: 09/10- present Vancomycin: 09/10- present Amp/sulb: (09/10) Impression: Status post I&D of the R index finger and flexor tendon sheath (09/11/2023) R index flexor tenosynovitis with purulence in tenon sheath Gram-positive cocci infection Plan: Continue vancomycin and pip/tazo Await operative cultures and sensitivities Continue wound care and hand soaks per ORS ID service will continue to follow; plans d/w Dr. Lozano. Hyacinth Horowitz CNP [facility] - Infectious Diseases 12:29 PM 09/13/2023 Based on diagnoses and management, combination of acute and chronic problems, exacerbations and/or acuity, this visit should be considered to be of moderate complexity. .Nutrition rescreen completed. Chart reviewed. Patient to be monitored and followed by the diet artificial insemination technician. CLIFFORD Morris Med Team Progress Note Christian Danielson : 2000(23 y.o.) Date: September 13, 2023 Med Team: Blake Attending: Dr. Robles Chief Complaint: hand pain Subjective: - No acute events overnight. - Currently, patient walking around halls with IV pole. Reports he is doing well this morning. States his pain is well controlled with pain regimen. We discussed that we will be decreasing his pain regimen today in preparation for home-going regimen. Patient is agreeable. He is interested in getting home today. States he will be able to perform wound care at home with the help of his parents. Has not had a BM since admission, he typically has BM daily at home. Messaged nurse to give PRN miralax. PRN meds used in last 24hrs: IV dilaudid 0.5mg x3, ibuprofen 600mg x1, oxycodone 10mg x4 Review of Systems Constitutional: Negative for appetite change, chills and fever. Respiratory: Negative for shortness of breath. Cardiovascular: Negative for chest pain and leg swelling. Gastrointestinal: Positive for constipation. Negative for abdominal pain, diarrhea, nausea and vomiting. Skin: Positive for wound (and pain). Psychiatric/Behavioral: Negative for agitation and confusion. Scheduled Meds:acetaminophen, 1,000 mg, Oral, q8h enoxaparin, 40 mg, SubCUTAneous, Daily piperacillin-tazobactam, 3,375 mg, IntraVENous, q8h vancomycin, 1,250 mg, IntraVENous, q12h Continuous Infusions: Objective: BP 118/60 (BP Location: Left arm, Patient Position: Sitting) Pulse (!) 46 Temp 36.7 C (98.1 F) (Temporal) Resp 16 Ht 6' 2 (1.88 m) Wt 170 lb (77.1 kg) SpO2 98% BMI 21.83 kg/m Physical Exam Vitals and nursing note reviewed. Constitutional: Appearance: Normal appearance. He is not ill-appearing. HENT: Head: Normocephalic and atraumatic. Mouth/Throat: Mouth: Mucous membranes are moist. Eyes: Conjunctiva/sclera: Conjunctivae normal. Pupils: Pupils are equal, round, and reactive to light. Comments: 2mm pupils bilaterally Cardiovascular: Rate and Rhythm: Normal rate and regular rhythm. Pulses: Normal pulses. Heart sounds: Normal heart sounds. Pulmonary: Effort: Pulmonary effort is normal. No respiratory distress. Breath sounds: Normal breath sounds. Abdominal: General: Bowel sounds are normal. There is no distension. Palpations: Abdomen is soft. Tenderness: There is no abdominal tenderness. Musculoskeletal: General: Tenderness (R hand) present. Right lower leg: No edema. Left lower leg: No edema. Comments: R hand/forearm in dressing, CDI Skin: General: Skin is warm and dry. Neurological: General: No focal deficit present. Mental Status: He is alert and oriented to person, place, and time. Select Labs within last 24 hours Auto WBC Date Value Ref Range Status 09/13/2023 8.7 3.6 - 10.7 10*3/uL Final Hemoglobin Date Value Ref Range Status 09/13/2023 12.9 (L) 13.0 - 18.0 g/dL Final Hematocrit Date Value Ref Range Status 09/13/2023 36.4 (L) 40.0 - 52.0 % Final Platelets Date Value Ref Range Status 09/13/2023 239 140 - 440 10*3/uL Final MCV Date Value Ref Range Status 09/13/2023 86.1 77.0 - 99.0 fL Final SODIUM Date Value Ref Range Status 09/13/2023 134 (L) 135 - 145 mmol/L Final POTASSIUM Date Value Ref Range Status 09/13/2023 3.4 (L) 3.5 - 5.1 mmol/L Final CHLORIDE Date Value Ref Range Status 09/13/2023 103 98 - 107 mmol/L Final CARBON DIOXIDE Date Value Ref Range Status 09/13/2023 25 22 - 30 mmol/L Final UREA NITROGEN Date Value Ref Range Status 09/13/2023 14 9 - 20 mg/dL Final CREATININE Date Value Ref Range Status 09/13/2023 1.00 0.66 - 1.25 mg/dL Final GLUCOSE Date Value Ref Range Status 09/13/2023 111 (H) 70 - 100 mg/dL Final CALCIUM Date Value Ref Range Status 09/13/2023 8.9 8.4 - 10.4 mg/dL Final No results found for: AST, ALT, PROT, BILITOT, ALKPHOS, INR, APTT, LIPASE No results found for: CKTOTAL, CKMB, TROPONINI VANCOMYCIN, AUC Date Value Ref Range Status 09/13/2023 21.8 (H) 15.0 - 20.0 ug/mL Final Assessment and Plan: R index finger suppurative flexor tenosynovitis, s/p I&D -XR hand: no acute osseus process -wound gram stain: rare gram + cocci in clusters -wound culture pending Plan -orthopedic surgery signed off 09/12 -s/p OR with orthopedic surgery for I&D 09/10 evening. No plans for further surgery -wound/post-op care per ortho -infectious disease consult, appreciate recs -vancoymcin and zosyn (pharmacy to dose vanc) -de-escalating pain regimen: scheduled tylenol, PRN ibuprofen 600mg, PRN oxycodone 5-10mg q4hrs--> 2.5-5mg q4hrs, PRN IV dilaudid 0.5mg --> 0.25mg for dressing changes/4th line breakthrough pain -daily BMP, CBC Other Problems: Chronic Problems and Follow Up Items: Dispo: ok for discharge pending antibiotic recommendations - Goals of Care: FULL CODE - DVT Prophylaxis: Lovenox 40 q24hr - CrCl >30 - GI Prophylaxis: Not Indicated - Diet: General Associated attestation - Juju Robles DO - 09/13/2023 5:22 PM EDT I saw and evaluated the patient. I agree with the findings and plan of care as documented in the resident's note, except as noted in Green text. Patient seen and examined personally during bedside teaching rounds (Date of Service: 09/13/23) -discharge pending cultures and final anti-microbial recs from ID. 7AM-5PM: contact resident on [facility] Med D (find by hovering over attending's name on left side of patient's chart) 5PM-7AM: contact [facility] Pharmacy to Dose Vancomycin - Progress Note Lab Results Component Value Date CREATININE 1.00 09/13/2023 BUN 14 09/13/2023 WBC 8.7 09/13/2023 VANCOTROUGH 21.8 (H) 09/13/2023 Doses, serum creatinine, and vancomycin levels interfaced automatically to [employer] and data has been analyzed and interpreted. Infectious Diagnosis: Bone and Joint Infection Est CrCl: 125 mL/min (Cockcroft-Gault) Assessment: Current regimen vancomycin 1250 mg every 12 hours. Predicted AUC = 521 mg/L*hr (goal 400-600 mg/L*hr) PAUC = 89% (probability that AUC is >400 mg/L*hr) Pconc = 24% (probability that Ctrough is above 20 mcg/mL (toxicity)) Plan: Is the current dose therapeutic? [x] Yes - obtain next level on 09/18/23 unless predicted AUC is sub-/supra-therapeutic or change in serum creatinine. Trend serum creatinine. Trend AUC using Bayesian Modeling. Orders placed. DATE: 09/13/23 TIME: 7:35 AM Bravo Quispe RPh, PharmD. Images from the original note were not included. [facility] [address] [address] Dept: [phone] Loc: [phone] Orthopedic Progress Note Name: Christian Danielson Date:09/13/2023 Attending:Lela Hemphill MD Subjective No events o/n. Pain controlled at rest. Feels ok overall. Objective Vitals: Vitals: 09/12/23 1306 09/12/23 1714 09/12/23 2111 09/13/23 0553 BP: 139/81 131/76 142/88 118/60 BP Location: Left arm Left arm Patient Position: Sitting Sitting Pulse: 54 52 64 (!) 46 Resp: 16 16 17 16 Temp: 37.2 C (99 F) 36.3 C (97.4 F) 36.8 C (98.3 F) 36.7 C (98.1 F) TempSrc: Temporal Temporal Temporal Temporal SpO2: 99% 98% 100% 98% Weight: Height: Physical Exam: General: NAD RUE No expressible purulence from proximal or distal incision. No TTP over volar P1 or P2. Only TTP around incisions. Able to ROM finger with mild pain. Cap refill and sensation intact to finger tip. LABS: Recent Labs 09/11/23 1347 09/12/23 0103 09/13/23 0206 WBC 10.3 9.4 8.7 HGB 14.7 13.9 12.9* HCT 41.8 40.1 36.4* PLT 284 269 239 Recent Labs 09/11/23 1442 09/12/23 0103 09/13/23 0206 NA 136 134* 134* K 4.6 4.2 3.4* CL 105 102 103 CO2 20* 20* 25 BUN 16 15 14 CREATININE 1.12 0.98 1.00 CALCIUM 9.5 9.2 8.9 Recent Labs 09/11/23 1335 INR 1.0 Recent Labs 09/11/23 1347 09/11/23 1442 SEDRATE 7 -- CRP -- 10.5* No results for input(s): HCG in the last 72 hours. Assessment Christian is a 23 y.o.male with R IF FTS s/p I&D 09/10 Plan -Operative plans: No further plans for surgery -Immobilization: Splint to R hand in between soaks -Antibiotics: ID consult, broad spectrum for now. Cx +GPC. -Dressings: bandage changes in between soaks -Other: Hand soaks TID per order set, pull packing prior to soaking -Diet: no restrictions from ortho standpoint -Labs: No further labs needed from ortho standpoint. -Medical management, dvt ppx and pain control per primary -DVT ppx recommended?: No DVT ppx is indicated from ortho standpoint -Follow-up with Dr Olvera in 5-7 days -Ortho to sign off. Harvey Mercado MD Orthopaedic Surgery, PGY-2 09/13/2023 7:11 AM [facility] [address] [facility] [address] Dept: [phone] Loc: [phone] Orthopedic Progress Note Name: Christian Danielson Date:09/12/2023 Attending:Lela Hemphill MD Subjective No events o/n. Pain controlled at rest. Feels ok overall. Objective Vitals: Vitals: 09/11/23 1904 09/11/23 2113 09/12/23 0114 09/12/23 0515 BP: (!) 144/113 143/76 137/71 129/68 BP Location: Left arm Left arm Left arm Left arm Patient Position: Sitting Sitting Sitting Lying Pulse: 76 57 67 61 Resp: 14 20 20 20 Temp: 36.7 C (98.1 F) 36.9 C (98.5 F) 36.7 C (98 F) (!) 35.9 C (96.7 F) TempSrc: Temporal Temporal Temporal Temporal SpO2: 97% 96% 98% 99% Weight: 77.1 kg (170 lb) Height: 1.88 m (6' 2) Physical Exam: General: NAD RUE Index finger: bandaging removed and packing pulled. Some bleeding from both incisions afterwards. No expressible purulence from proximal or distal incision. No TTP over volar P1 or P2. Only TTP around incisions. Able to ROM finger with mild pain. Cap refill and sensation intact to finger tip. LABS: Recent Labs 09/11/23 1347 09/12/23 0103 WBC 10.3 9.4 HGB 14.7 13.9 HCT 41.8 40.1 PLT 284 269 Recent Labs 09/11/23 1442 09/12/23 0103 NA 136 134* K 4.6 4.2 CL 105 102 CO2 20* 20* BUN 16 15 CREATININE 1.12 0.98 CALCIUM 9.5 9.2 Recent Labs 09/11/23 1335 INR 1.0 Recent Labs 09/11/23 1347 09/11/23 1442 SEDRATE 7 -- CRP -- 10.5* No results for input(s): HCG in the last 72 hours. Assessment Christian is a 23 y.o.male with R IF FTS s/p I&D 09/10 Plan -Operative plans: No further plans for surgery -Immobilization: Splint to R hand in between soaks -Antibiotics: ID consult, broad spectrum for now. Cx +GPC. -Dressings: bandage changes in between soaks -Other: Hand soaks TID per order set, pull packing prior to soaking -Diet: no restrictions from ortho standpoint -Labs: No further labs needed from ortho standpoint. -Medical management, dvt ppx and pain control per primary -DVT ppx recommended?: No DVT ppx is indicated from ortho standpoint -Follow-up with Dr Olvera in 5-7 days -Recommend overnight stay tonight then possibly home tomorrow with oral abx as long as clinical exam remains improved. Ortho will examine tomorrow on rounds. Danny Navarro M.D. Orthopaedic Surgery Med Team Progress Note Christian Danielson : 2000(23 y.o.) Date: September 12, 2023 Med Team: D Attending: Dr. Hemphill Chief Complaint: hand pain Subjective: - Overnight, patient was admitted. - Currently, patient soaking his hand per ortho instructions. Ortho had just removed the packing from his wound. Due to this, he is currently in 10/10 pain. Pain was better controlled prior to this with the oxycodone. Ordered 1x dose IV dilaudid for acute breakthrough pain. Otherwise, patient denies symptoms other than hand pain. PRN meds used in last 24hrs: oxycodone 10mg x2 Review of Systems Constitutional: Negative for appetite change, chills and fever. Respiratory: Negative for cough and shortness of breath. Cardiovascular: Negative for chest pain and palpitations. Gastrointestinal: Negative for abdominal pain, constipation, diarrhea, nausea and vomiting. Skin: Positive for wound (and pain). Psychiatric/Behavioral: Negative for agitation and confusion. Scheduled Meds:enoxaparin, 40 mg, SubCUTAneous, Daily piperacillin-tazobactam, 3,375 mg, IntraVENous, q8h vancomycin, 1,250 mg, IntraVENous, q12h Continuous Infusions: Objective: BP 129/68 (BP Location: Left arm, Patient Position: Lying) Pulse 61 Temp (!) 35.9 C (96.7 F) (Temporal) Resp 20 Ht 6' 2 (1.88 m) Wt 170 lb (77.1 kg) SpO2 99% BMI 21.83 kg/m Physical Exam Vitals and nursing note reviewed. Constitutional: Appearance: Normal appearance. He is not ill-appearing. Comments: Appears uncomfortable, soaking hand at bedside after ortho removed packing HENT: Head: Normocephalic and atraumatic. Mouth/Throat: Mouth: Mucous membranes are moist. Eyes: Conjunctiva/sclera: Conjunctivae normal. Pupils: Pupils are equal, round, and reactive to light. Cardiovascular: Rate and Rhythm: Normal rate and regular rhythm. Pulses: Normal pulses. Heart sounds: Normal heart sounds. Pulmonary: Effort: Pulmonary effort is normal. No respiratory distress. Breath sounds: Normal breath sounds. Abdominal: General: Bowel sounds are normal. There is no distension. Palpations: Abdomen is soft. Tenderness: There is no abdominal tenderness. Musculoskeletal: General: Tenderness (R hand) present. Right lower leg: No edema. Left lower leg: No edema. Skin: General: Skin is warm and dry. Comments: R hand soaking at bedside. Neurovascularly intact. Wounds with sanguinous drainage. Neurological: General: No focal deficit present. Mental Status: He is alert and oriented to person, place, and time. Select Labs within last 24 hours Auto WBC Date Value Ref Range Status 09/12/2023 9.4 3.6 - 10.7 10*3/uL Final Hemoglobin Date Value Ref Range Status 09/12/2023 13.9 13.0 - 18.0 g/dL Final 09/11/2023 14.7 13.0 - 18.0 g/dL Final Hematocrit Date Value Ref Range Status 09/12/2023 40.1 40.0 - 52.0 % Final Platelets Date Value Ref Range Status 09/12/2023 269 140 - 440 10*3/uL Final MCV Date Value Ref Range Status 09/12/2023 85.3 77.0 - 99.0 fL Final SODIUM Date Value Ref Range Status 09/12/2023 134 (L) 135 - 145 mmol/L Final POTASSIUM Date Value Ref Range Status 09/12/2023 4.2 3.5 - 5.1 mmol/L Final CHLORIDE Date Value Ref Range Status 09/12/2023 102 98 - 107 mmol/L Final CARBON DIOXIDE Date Value Ref Range Status 09/12/2023 20 (L) 22 - 30 mmol/L Final UREA NITROGEN Date Value Ref Range Status 09/12/2023 15 9 - 20 mg/dL Final CREATININE Date Value Ref Range Status 09/12/2023 0.98 0.66 - 1.25 mg/dL Final 09/11/2023 1.12 0.66 - 1.25 mg/dL Final GLUCOSE Date Value Ref Range Status 09/12/2023 140 (H) 70 - 100 mg/dL Final CALCIUM Date Value Ref Range Status 09/12/2023 9.2 8.4 - 10.4 mg/dL Final INR Date Value Ref Range Status 09/11/2023 1.0 0.9 - 1.1 Final No results found for: CKTOTAL, CKMB, TROPONINI No results found for: PROCAL, CHOL, TRIG, HDL, TSH, VITD25, HGBA1C, VANCOTROUGH Assessment and Plan: R index finger suppurative flexor tenosynovitis -XR hand: no acute osseus process -wound culture: rare gram + cocci in clusters Plan -orthopedic surgery following, appreciate recs -s/p OR with orthopedic surgery for I&D 09/10 evening -wound/post-op care per ortho -infectious disease consult, appreciate recs -vancoymcin and zosykimberly (pharmacy to dose vanc) -pain regimen: tylenol q6hrs PRN, oxycodone 5-10mg q6hrs PRN. -added PRN dilaudid 0.5mg IV for dressing changes -daily BMP, CBC Other Problems: Chronic Problems and Follow Up Items: - Goals of Care: FULL CODE - DVT Prophylaxis: Lovenox 40 q24hr - CrCl >30 - GI Prophylaxis: Not Indicated - Diet: General Please see notes and addendums on H&P dated today. Agree with above Addendums may have been dictated using the [employer] Voice Recognition Feature. The document was proofread; however, unrecognized voice recognition hat cutter errors may be present. Please note, the time of this note does not reflect the time I saw this patient today, but the time of this documentaton. documented in this encounter [facility] 09-14-2023 Note [facility] - Infectious Diseases PEN MAKER Progress Note Subjective: Following for R index flexor tenosynovitis with purulence in tenon sheath Notes reviewed. R hand pain and swelling is improved. Has increase flexion of his digits. Incisions without expressible purulence. Cultures growing MSSA. He is tolerating abx. Objective: Vitals: Patient Vitals for the past 24 hrs: BP Temp Temp src Pulse Resp SpO2 09/14/23 0513 119/68 36.7 ?C (98 ?F) Temporal 51 12 99 % 09/13/23 1712 124/76 36.4 ?C (97.6 ?F) Temporal 61 18 99 % Physical Exam Vitals and nursing note reviewed. Constitutional: General: He is not in acute distress. Appearance: Normal appearance. He is not toxic-appearing. Comments: Alert, pleasant and conversant male, NAD. HENT: Head: Normocephalic and atraumatic. Mouth/Throat: Mouth: Mucous membranes are moist. Pharynx: Oropharynx is clear. Eyes: Conjunctiva/sclera: Conjunctivae normal. Cardiovascular: Rate and Rhythm: Normal rate and regular rhythm. Heart sounds: No murmur heard. Pulmonary: Effort: Pulmonary effort is normal. No respiratory distress. Breath sounds: Normal breath sounds. No wheezing, rhonchi or rales. Comments: Breathing comfortable on room air Abdominal: General: Bowel sounds are normal. There is no distension. Palpations: Abdomen is soft. Tenderness: There is no abdominal tenderness. There is no guarding. Musculoskeletal: General: No swelling. Cervical back: Neck supple. Right lower leg: No edema. Left lower leg: No edema. Comments: + incisions to distal R index finger and palm clean without expressible purulence. Overall swelling improved. +flexion and extension of digits. Skin: General: Skin is warm and dry. Findings: No rash. Neurological: General: No focal deficit present. Mental Status: He is alert and oriented to person, place, and time. Cranial Nerves: No cranial nerve deficit. Psychiatric: Mood and Affect: Mood normal. Behavior: Behavior normal. Labs: Recent Labs 09/12/23 0103 09/13/23 0206 09/14/23 0831 NA 134* 134* 139 K 4.2 3.4* 4.3 CL 102 103 105 CO2 20* 25 22 BUN 15 14 14 CREATININE 0.98 1.00 0.93 GLUCOSE 140* 111* 87 CALCIUM 9.2 8.9 9.7 Recent Labs 09/11/23 1347 09/12/23 0103 09/13/23 0206 09/14/23 0158 WBC 10.3 9.4 8.7 6.0 HGB 14.7 13.9 12.9* 13.3 HCT 41.8 40.1 36.4* 38.2* PLT 284 269 239 246 LYMPHOPCT 18.2 3* 26.7 38.3 MONOPCT 11.8 0* 9.9 10.4 BASOPCT 0.6 -- 0.7 1.2 NEUTROABS 7.0 -- 5.3 2.9 Micro: 09/10- R finger cx- MSSA 09/10- R finger fungal cx- NGTD CRP 10.5 ESR 7 Lines: PIV Radiography/Echo/Other: 09/10- CXR 1. Lines/Tubes/Devices/Hardware: None. 2. Lungs: No consolidation or pulmonary edema. 3. Pleura: No pneumothorax or large pleural effusions. 4. Heart and mediastinum: Normal cardiomediastinal contours. 09/10- XR R hand he bone mineralization is normal. The joint spaces are maintained. There is no acute fracture. Impression: No acute osseous process. Antimicrobials,Start/End Dates: Pip/tazo: 09/10- present Vancomycin: 09/10- present Amp/sulb: (09/10) Impression: Status post I&D of the R index finger and flexor tendon sheath (09/11/2023) R index flexor tenosynovitis with purulence in tenon sheath MSSA infection Plan: Stop vancomycin and pip/tazo. Start Cephalexin 1g po q8h x4 weeks total through 10/09/2023. Discuss if symptoms worsens on po abx he will need to return for IV abx. Pt and his father verbalizes understanding. Opportunity given for questions and all questions answered to the patient's satisfaction. Close follow-up with ORS. Will schedule f/u with him near [place] to assess his wounds. Ok to discharge from ID standpoint. Plan d/w Dr. Lozano. Hyacinth Horowitz, HOLGER [facility] - Infectious Diseases 10:48 AM 09/14/2023 Based on diagnoses and management, combination of acute and chronic problems, exacerbations and/or acuity, this visit should be considered to be of moderate complexity. [facility] 09-14-2023 Note Attestation signed by Juju Robles DO at 09/21/2023 3:51 PM Patient seen & examined on day of discharge. Please refer to note dated on the day of discharge (09/14/2023) for associated attestation, exam, and plan. My personal highlights or additions below noted in Green. Internal Medicine: Med Team Discharge Summary Christian Danielson : 2000 ADMIT DATE: 09/11/2023 DISCHARGE DATE: 09/14/23 PCP: No primary care provider on file. Visit Status: Admission Code Status: FULL CODE Primary Discharge Diagnosis: R index finger suppurative flexor tenosynovitis, s/p I&D Secondary Discharge Diagnoses: Constipation, likely 2/2 opioids Reason for Admission & Hospital Course: Christian Danielson is a 23 y.o. male with PMH GERD, H. Pylori, concussions that presented to [facility] on 09/11/2023 and was admitted for R index finger suppurative flexor tenosynovitis. Patient had presented to outside hospital ED and was placed on PO bactrim. Patient was not symptomatically improving, and was referred to [facility] who recommended pt return to ED. At [facility] ED, R hand xray with no acute osseus process. Orthopedic surgery consulted and took patient to OR for I&D. Admitted to internal medicine service following OR. Patient received Tdap vaccine 1 year prior and this was not repeated. Placed on vancomycin and zosyn for antibiotic coverage while pending culture results, infectious disease consulted. Pain controlled with multimodal pain regimen including tylenol, ibuprofen, oxycodone, and IV dilaudid. Pain was adequately controlled and regimen was de-escalated during hospitalization. Wound cultures grew MSSA. Infectious disease recommended PO cephalexin for 4 weeks on discharge. Return instructions give: return if worsening pain of symptoms worsen for IV abx. Patient stable for discharge home and reports he has his own PCP to follow up with on discharge. Disposition: Home Activity: up with assist Diet: Adult diet Regular Discharge Medications: Medication List START taking these medications cephalexin 500 MG capsule Commonly known as: Keflex Take 2 capsules (1,000 mg) by mouth in the morning and 2 capsules (1,000 mg) at noon and 2 capsules (1,000 mg) before bedtime. Do all this for 25 days. oxyCODONE 5 MG immediate release tablet Commonly known as: Roxicodone Take 1 tablet (5 mg) by mouth every 6 hours as needed for severe pain (7-10) for up to 3 days. polyethylene glycol (PEG) 3350 17 GM/SCOOP powder Commonly known as: Glycolax Take 17 g by mouth Daily as needed (constipation). CONTINUE taking these medications amphetamine-dextroamphetamine XR 20 MG 24 hr capsule Commonly known as: Adderall XR Where to Get Your Medications These medications were sent to [facility] [address] [place] [address] Hours: Wednesday to Wednesday 10 am to 6 pm cephalexin 500 MG capsule oxyCODONE 5 MG immediate release tablet polyethylene glycol (PEG) 3350 17 GM/SCOOP powder Notable Medication Changes & Reasoning: Take cephalexin 1g q8hrs through 10/09/23 for tenosynovitis Take tylenol and ibuprofen alternating as needed for pain Take oxycodone 5mg q8hrs as needed for breakthrough pain Take miralax as needed for constipation [facility] Orthopedic surgery Pharmacy Procedures Performed Incision & Drainage with Irrigation and Debridement of Right index finger Flexor Tendon Sheath Infection - Suppurative Flexor Tenosynovitis Significant Laboratory/Radiographic Data: Na 134 -> 139 K 3.4 -> 4.3 Bicarb 20 -> 22 Hgb 12.9 -> 13.3 WBC 10.3 -> 6 ESR 7 CRP 10.5 Wound culture: MSSA R hand xray (09/11/23): no acute osseus process CXR (09/11/23): no acute process Pending Results at Time of Discharge Fungal culture Follow Up Appointment(s): Patient reports he has a PCP he will follow up with outpatient. Infectious disease: follow up with ORS, scheduling near end of treatment. Items to Address at Followup Visit: Pain control, wound healing [facility] 09-14-2023 Note Pharmacy to Dose Van comycin - Progress Note Lab Results Component Value Date CREATININE 0.93 09/14/2023 BUN 14 09/14/2023 WBC 6.0 09/14/2023 VANCOTROUGH 21.8 (H) 09/13/2023 Doses, serum creatinine, and vancomycin levels interfaced automatically to [employer] and data has been analyzed and interpreted. Infectious Diagnosis: Bone and Joint Infection Est CrCl: 125 mL/min (Cockcroft-Gault) Assessment: Current regimen vancomycin 1250 mg every 12 hours. Predicted AUC = 493 mg/L*hr (goal 400-600 mg/L*hr) PAUC = 83% (probability that AUC is >400 mg/L*hr) Pconc = 18% (probability that Ctrough is above 20 mcg/mL (toxicity)) Plan: Is the current dose therapeutic? [x] Yes - obtain next level on 09/18/23 unless predicted AUC is sub-/supra-therapeutic or change in serum creatinine. Trend serum creatinine. Trend AUC using Bayesian Modeling. Orders placed. DATE: 09/14/23 TIME: 9:39 AM Bravo Quispe RPh, PharmD. [facility] 09-13-2023 Note Formatting of this n ote might be different from the original. Care Managment Initial Assessment Date: 09/13/2023 Patient Name: Christian Danielson : 2000 Patient Information Source of Information: Patient Cognition/Language: WFL - Within Functional Limits Permission given to speak with patient medical billing representative/caregiver as indicated: Confirmation of Payer with patient/family: Yes Payer Name: [employer] [place]: No Confirmation of Primary Care Physician: Confirmed PCP Name: Dr Janice Matthews Seen in last 2 years?: Yes Primary Caregiver: Self If assistance needed, confirmed caregiver ready, willing and able to care for patient at discharge: Confirmed with: Living Arrangements Current Residence: House Number of Floors 1 Number of Entry Steps: Bed/Bath Levels: Both first floor Facility: Facility Name: Plan to Return: Yes Lives with: Parent Support Systems: Parent, Friends/neighbors Activities of Daily Living Ambulation: Independent Bathing/Dressing: Independent Elimination/Continence/Toileting: Independent Feeding: Independent Who Assists with Activities of Daily Living: Instrumental Activities of Daily Living Prescription Coverage: Yes Pharmacy Used: [facility] [address] Medication Management: Independent Transportation/Shopping: Independent Transportation Mode: Car Needs Assistance with Transportation at Discharge: No Meal Preparation: Independent Laundry/Cleaning: Independent Finances/Bill Paying: Independent Communication: Independent Types of Care Services/Equipment Utilized Care Services: Dialysis Type: NA Durable Medical Equipment: Patient's Goal/Discharge Plan Patient expects to be discharged to: home with parents Discharge Planning Actions: Continue to follow Patient's Choice Rights and [employer] and Collaborative Relationships Disclosed as Indicated for Post-Acute Care: Interdisciplinary Team Engagement: Other (Comment) (ID, wound care) Social Work Referral for: Additional Information: 23 year old male admitted to , receiving IV zosyn and vancomycin for Tenosynovitis. This TCC met with patient at bedside and introduced self and role. He lives with his parents, and DCP is to return home. Consults to ID and Wound Care. No transportation needs. Patient has PCP, and insurance for medications. No DC needs identified. TCC will continue to follow. Joanie Conklin RN [facility] 09-13-2023 Note Formatting of this n ote might be different from the original. Care Managment Initial Assessment Date: 09/13/2023 Patient Name: Christian Danielson : 2000 Patient Information Source of Information: Patient Cognition/Language: WFL - Within Functional Limits Permission given to speak with patient medical billing representative/caregiver as indicated: Confirmation of Payer with patient/family: Yes Payer Name: Jeanna [place]: No Confirmation of Primary Care Physician: Confirmed PCP Name: Dr Janice Matthews Seen in last 2 years?: Yes Primary Caregiver: Self If assistance needed, confirmed caregiver ready, willing and able to care for patient at discharge: Confirmed with: Living Arrangements Current Residence: House Number of Floors 1 Number of Entry Steps: Bed/Bath Levels: Both first floor Facility: Facility Name: Plan to Return: Yes Lives with: Parent Support Systems: Parent, Friends/neighbors Activities of Daily Living Ambulation: Independent Bathing/Dressing: Independent Elimination/Continence/Toileting: Independent Feeding: Independent Who Assists with Activities of Daily Living: Instrumental Activities of Daily Living Prescription Coverage: Yes Pharmacy Used: [facility] [address] Medication Management: Independent Transportation/Shopping: Independent Transportation Mode: Car Needs Assistance with Transportation at Discharge: No Meal Preparation: Independent Laundry/Cleaning: Independent Finances/Bill Paying: Independent Communication: Independent Types of Care Services/Equipment Utilized Care Services: Dialysis Type: NA Durable Medical Equipment: Patient's Goal/Discharge Plan Patient expects to be discharged to: home with parents Discharge Planning Actions: Continue to follow Patient's Choice Rights and [employer] and Collaborative Relationships Disclosed as Indicated for Post-Acute Care: Interdisciplinary Team Engagement: Other (Comment) (ID, wound care) Social Work Referral for: Additional Information: 23 year old male admitted to , receiving IV zosyn and vancomycin for Tenosynovitis. This TCC met with patient at bedside and introduced self and role. He lives with his parents, and DCP is to return home. Consults to ID and Wound Care. No transportation needs. Patient has PCP, and insurance for medications. No DC needs identified. TCC will continue to follow. Joanie Conklin RN [facility] 09-13-2023 Note [facility] - Infectious Diseases P[employer]ER Progress Note Subjective: Following for R index flexor tenosynovitis with purulence in tenon sheath Notes reviewed. Father at bedside. R hand pain and swelling improved. Doing hand soaks. Cultures still in process. Tolerating abx. Objective: Vitals: Patient Vitals for the past 24 hrs: BP Temp Temp src Pulse Resp SpO2 09/13/23 0553 118/60 36.7 ?C (98.1 ?F) Temporal (!) 46 16 98 % 09/12/23 2111 142/88 36.8 ?C (98.3 ?F) Temporal 64 17 100 % 09/12/23 1714 131/76 36.3 ?C (97.4 ?F) Temporal 52 16 98 % 09/12/23 1306 139/81 37.2 ?C (99 ?F) Temporal 54 16 99 % Physical Exam Vitals and nursing note reviewed. Constitutional: General: He is not in acute distress. Appearance: Normal appearance. He is not toxic-appearing. Comments: Alert, pleasant and conversant male, NAD. HENT: Head: Normocephalic and atraumatic. Mouth/Throat: Mouth: Mucous membranes are moist. Pharynx: Oropharynx is clear. Eyes: Conjunctiva/sclera: Conjunctivae normal. Cardiovascular: Rate and Rhythm: Normal rate and regular rhythm. Heart sounds: No murmur heard. Pulmonary: Effort: Pulmonary effort is normal. No respiratory distress. Breath sounds: Normal breath sounds. No wheezing, rhonchi or rales. Comments: Breathing comfortable on room air Abdominal: General: Bowel sounds are normal. There is no distension. Palpations: Abdomen is soft. Tenderness: There is no abdominal tenderness. There is no guarding. Musculoskeletal: General: No swelling. Cervical back: Neck supple. Right lower leg: No edema. Left lower leg: No edema. Comments: + R hand dressing and acewrap in place; no strike through (wound photos reviewed- R distal index finger incision with clean wound bed. 2nd incision to palmar aspect clean. Surrounding edema appears improved) Skin: General: Skin is warm and dry. Findings: No rash. Neurological: General: No focal deficit present. Mental Status: He is alert and oriented to person, place, and time. Cranial Nerves: No cranial nerve deficit. Psychiatric: Mood and Affect: Mood normal. Behavior: Behavior normal. Labs: Recent Labs 09/11/23 1442 09/12/23 0103 09/13/23 0206 NA 136 134* 134* K 4.6 4.2 3.4* CL 105 102 103 CO2 20* 20* 25 BUN 16 15 14 CREATININE 1.12 0.98 1.00 GLUCOSE 98 140* 111* CALCIUM 9.5 9.2 8.9 Recent Labs 09/11/23 1347 09/12/23 0103 09/13/23 0206 WBC 10.3 9.4 8.7 HGB 14.7 13.9 12.9* HCT 41.8 40.1 36.4* PLT 284 269 239 LYMPHOPCT 18.2 3* 26.7 MONOPCT 11.8 0* 9.9 BASOPCT 0.6 -- 0.7 NEUTROABS 7.0 -- 5.3 Micro: 09/10- R finger cx- in process; + gpc clusters 09/10- R finger fungal cx- NGTD CRP 10.5 ESR 7 Lines: PIV Radiography/Echo/Other: 09/10- CXR 1. Lines/Tubes/Devices/Hardware: None. 2. Lungs: No consolidation or pulmonary edema. 3. Pleura: No pneumothorax or large pleural effusions. 4. Heart and mediastinum: Normal cardiomediastinal contours. 09/10- XR R hand he bone mineralization is normal. The joint spaces are maintained. There is no acute fracture. Impression: No acute osseous process. Antimicrobials,Start/End Dates: Pip/tazo: 09/10- present Vancomycin: 09/10- present Amp/sulb: (09/10) Impression: Status post I&D of the R index finger and flexor tendon sheath (09/11/2023) R index flexor tenosynovitis with purulence in tenon sheath Gram-positive cocci infection Plan: Continue vancomycin and pip/tazo Await operative cultures and sensitivities Continue wound care and hand soaks per ORS ID service will continue to follow; plans d/w Dr. Lozano. Hyacinth Horowitz, HOLGER [facility] - Infectious Diseases 12:29 PM 09/13/2023 Based on diagnoses and management, combination of acute and chronic problems, exacerbations and/or acuity, this visit should be considered to be of moderate complexity. [facility] 09-13-2023 Nurse Note Hand soak completed and rewrapped per order. Pt tolerated well. [facility] 09-13-2023 Nurse Note Hand soak completed and rewrapped per order. Pt tolerated well. documented in this encounter [facility] 09-13-2023 Note Pharmacy to Dose Van comycin - Progress Note Lab Results Component Value Date CREATININE 1.00 09/13/2023 BUN 14 09/13/2023 WBC 8.7 09/13/2023 VANCOTROUGH 21.8 (H) 09/13/2023 Doses, serum creatinine, and vancomycin levels interfaced automatically to [employer] and data has been analyzed and interpreted. Infectious Diagnosis: Bone and Joint Infection Est CrCl: 125 mL/min (Cockcroft-Gault) Assessment: Current regimen vancomycin 1250 mg every 12 hours. Predicted AUC = 521 mg/L*hr (goal 400-600 mg/L*hr) PAUC = 89% (probability that AUC is >400 mg/L*hr) Pconc = 24% (probability that Ctrough is above 20 mcg/mL (toxicity)) Plan: Is the current dose therapeutic? [x] Yes - obtain next level on 09/18/23 unless predicted AUC is sub-/supra-therapeutic or change in serum creatinine. Trend serum creatinine. Trend AUC using Bayesian Modeling. Orders placed. DATE: 09/13/23 TIME: 7:35 AM Bravo Quispe RPh, PharmD. [facility] 09-12-2023 Consult note Associated Order (s): IP CONSULT TO INFECTIOUS DISEASES Images from the original note were not included. [facility] - Infectious Diseases [facility] inpatient Consult Note Reason for Consult: Index finger flexor tenosynovitis with purulence in tendon sheath History of Present Illness: Christian Danielson is a 23 y/o male with PMH of GERD and H. Pylori who presented to [facility] ED on 09/11/2023 with worsening R index finger redness, swelling, and pain. He first noticed a small black area to to the tip of his index finger a week ago. He does not recall any injury to the site. 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 He often gets cuts on his hands. No h/o infections in the past. Over the next few days he developed increasing pain and swelling. He was seen at an Urgent Care on Wednesday and was prescribed Bactrim. He was then seen in ED on Wednesday due to min improvements on antibiotics. He had a bedside I&D performed and was referred to [facility]. Pt states symptoms did not improved and was sent to ED after he was seen by a hand specialist at [facility]. He denies any fevers, chills, sob, chest pain, nausea, vomiting, or diarrhea. He presents to ED afebrile and hemodynamically stable. Work up shows: Wbc 10.3, platelet 284, Scr 1.12, ESR 7, CRP 10.5. XR shows no acute fracture or osseous process. He was started on broad-spectrum antibiotics. He was evaluated by Orthopedics and was taken to OR I&D of the R index finger and flexor tendon sheath (09/11/2023)-->gross purulence encountered tracking directly into the flexor tendon sheath. Cultures were obtained. ID consulted to assist with antimicrobial management. Past Medical History: History reviewed. No pertinent past medical history. Past Surgical History: Past Surgical History: Procedure Laterality Date I&D ABSCESS-SIMPLE (HISTORICAL) Right 09/11/2023 INDEX FINGER Current Medications: Current Facility-Administered Medications Medication Dose Route Frequency Provider Last Rate Last Admin acetaminophen (Tylenol) tablet 650 mg 650 mg Oral q6h PRN Simona Phillips DO Or acetaminophen (Tylenol) suppository 650 mg 650 mg Rectal q6h PRN Simona Phillips, enoxaparin (Lovenox) syringe 40 mg 40 mg SubCUTAneous Daily iSmona Phillips DO 40 mg at 09/11/232202 HYDROmorphone (Dilaudid) injection 0.5 mg 0.5 mg IntraVENous q8h PRN Rocio Anne MD naloxone (Narcan) injection 0.4 mg 0.4 mg IntraVENous q5 min PRN Paramjit Hernandez MD ondansetron ODT (Zofran-ODT) disintegrating tablet 4 mg 4 mg Oral q8h PRN Simona Phillips DO Or ondansetron (Zofran) injection 4 mg 4 mg IntraVENous q6h PRN Simona Phillips, DO oxyCODONE (Roxicodone) immediate release tablet 5 mg 5 mg Oral q6h PRN Simona Phillips, DO Or oxyCODONE (Roxicodone) immediate release tablet 10 mg 10 mg Oral q6h PRN Simona Phillips, DO 10 mg at 09/12/23 1029 piperacillin-tazobactam (Zosyn) IVPB 3,375 mg 3,375 mg IntraVENous q8h Paramjit Hernandez MD 12.5 mL/hr at 09/12/23 1003 3,375 mg at 09/12/23 1003 polyethylene glycol (PEG) 3350 (Miralax) packet 17 g 17 g Oral Daily PRN Simona Phillips, DO vancomycin IVPB 1250 mg in 250 mL NS (premix) 1,250 mg IntraVENous q12h Paramjit Hernandez MD 1,250 mg at 09/12/23 1032 Allergies: No Known Allergies Social History: Social History Socioeconomic History Marital status: Single Spouse name: Not on file Number of children: Not on file Years of education: Not on file Highest education level: Not on file Occupational History Not on file Tobacco Use Smoking status: Not on file Smokeless tobacco: Not on file Substance and Sexual Activity Alcohol use: Not on file Drug use: Not on file Sexual activity: Not on file Other Topics Concern Not on file Social History Narrative Not on file Social Determinants of Health Financial Resource Strain: Not on file Food Insecurity: Not on file Transportation Needs: Not on file Physical Activity: Not on file Stress: Not on file Social Connections: Not on file Intimate Partner Violence: Not At Risk (09/12/2023) Humiliation, Afraid, Rape, and Kick questionnaire Fear of Current or Ex-Partner: No Emotionally Abused: No Physically Abused: No Sexually Abused: No Housing Stability: Not on file Family History: No family history on file. Review of Systems: Review of Systems Constitutional: Negative for chills, fatigue and fever. HENT: Negative for congestion, sinus pain, sore throat and trouble swallowing. Eyes: Negative for visual disturbance. Respiratory: Negative for cough, shortness of breath and wheezing. Cardiovascular: Negative for chest pain, palpitations and leg swelling. Gastrointestinal: Negative for abdominal distention, abdominal pain, diarrhea, nausea and vomiting. Endocrine: Negative. Genitourinary: Negative for dysuria, flank pain, frequency, hematuria and urgency. Musculoskeletal: Negative for arthralgias, joint swelling, myalgias and neck stiffness. Skin: Positive for color change and wound. Negative for rash. Allergic/Immunologic: Negative. Neurological: Negative for weakness, numbness and headaches. Psychiatric/Behavioral: Negative. Negative for confusion. All other systems reviewed and are negative. Vitals: Patient Vitals for the past 24 hrs: BP Temp Temp src Pulse Resp SpO2 Height Weight 09/12/23 0930 115/72 36.5 C (97.7 F) Temporal 58 16 99 % -- -- 09/12/23 0515 129/68 (!) 35.9 C (96.7 F) Temporal 61 20 99 % -- -- 09/12/23 0114 137/71 36.7 C (98 F) Temporal 67 20 98 % -- -- 09/11/23 2113 143/76 36.9 C (98.5 F) Temporal 57 20 96 % -- -- 09/11/23 1904 (!) 144/113 36.7 C (98.1 F) Temporal 76 14 97 % 1.88 m (6' 2) 77.1 kg (170 lb) 09/11/23 1845 (!) 145/91 -- -- 68 18 98 % -- -- 09/11/23 1830 (!) 140/90 -- -- 82 20 97 % -- -- 09/11/23 1815 (!) 144/98 -- -- 98 18 100 % -- -- 09/11/23 1800 (!) 138/90 -- -- 95 16 100 % -- -- 09/11/23 1755 -- -- -- 88 -- 100 % -- -- 09/11/23 1745 123/70 36.3 C (97.3 F) Temporal 104 16 100 % -- -- 09/11/23 1620 125/88 -- -- 56 16 98 % -- -- 09/11/23 1423 (!) 138/91 -- -- 53 16 97 % -- -- 09/11/23 1207 135/84 36.2 C (97.2 F) Temporal 68 16 99 % -- -- Physical Exam: Physical Exam Vitals and nursing note reviewed. Constitutional: General: He is not in acute distress. Appearance: Normal appearance. He is not ill-appearing or toxic-appearing. Comments: Alert, pleasant and conversant male, NAD. HENT: Head: Normocephalic and atraumatic. Mouth/Throat: Mouth: Mucous membranes are moist. Pharynx: Oropharynx is clear. No oropharyngeal exudate. Eyes: General: No scleral icterus. Conjunctiva/sclera: Conjunctivae normal. Cardiovascular: Rate and Rhythm: Normal rate and regular rhythm. Heart sounds: No murmur heard. Pulmonary: Effort: Pulmonary effort is normal. No respiratory distress. Breath sounds: Normal breath sounds. No wheezing, rhonchi or rales. Comments: Breathing comfortable on room air Abdominal: General: Bowel sounds are normal. There is no distension. Palpations: Abdomen is soft. Tenderness: There is no abdominal tenderness. There is no right CVA tenderness, left CVA tenderness or guarding. Musculoskeletal: General: Tenderness present. No swelling. Cervical back: Neck supple. Comments: + R hand dressing and acewrap in place; no strike through. Skin: General: Skin is warm and dry. Findings: No rash. Neurological: General: No focal deficit present. Mental Status: He is alert and oriented to person, place, and time. Cranial Nerves: No cranial nerve deficit. Psychiatric: Mood and Affect: Mood normal. Behavior: Behavior normal. Labs: Recent Labs 09/11/23 1442 09/12/23 0103 NA 136 134* K 4.6 4.2 CL 105 102 CO2 20* 20* BUN 16 15 CREATININE 1.12 0.98 GLUCOSE 98 140* CALCIUM 9.5 9.2 Recent Labs 09/11/23 1347 09/12/23 0103 WBC 10.3 9.4 HGB 14.7 13.9 HCT 41.8 40.1 PLT 284 269 LYMPHOPCT 18.2 3* MONOPCT 11.8 0* BASOPCT 0.6 -- NEUTROABS 7.0 -- Micro: 09/10- R finger cx- in process; + gpc 09/10- R finger fungal cx- in process CRP 10.5 ESR 7 Lines: PIV Radiography/Echo/Other: 09/10- CXR 1. Lines/Tubes/Devices/Hardware: None. 2. Lungs: No consolidation or pulmonary edema. 3. Pleura: No pneumothorax or large pleural effusions. 4. Heart and mediastinum: Normal cardiomediastinal contours. 09/10- XR R hand he bone mineralization is normal. The joint spaces are maintained. There is no acute fracture. Impression: No acute osseous process. Antimicrobials,Start/End Dates: Pip/tazo: 09/10- present Vancomycin: 09/10- present Amp/sulb: (09/10) Impression: Status post I&D of the R index finger and flexor tendon sheath (09/11/2023) R index flexor tenosynovitis with purulence in tenon sheath Gram-positive cocci infection Plan: Continue vancomycin and pip/tazo Follow operative cultures and sensitivities Continue wound care and hand soaks per ORS ID service will continue to follow; plans d/w Dr. Emil Horowitz CNP [facility] - Infectious Diseases 12:32 PM 09/12/2023 Total time 55 minutes on this day of encounter includes counseling, coordinating plan of care, record and documentation review before and after visit including documentation and time not explicitly included on EMR time stamp for accounting for open encounter. [facility] 09-12-2023 Consult note Associated Order (s): IP CONSULT TO INFECTIOUS DISEASES Images from the original note were not included. [facility] - Infectious Diseases [facility] inpatient Consult Note Reason for Consult: Index finger flexor tenosynovitis with purulence in tendon sheath History of Present Illness: Christian Danielson is a 23 y/o male with PMH of GERD and H. Pylori who presented to [facility] ED on 09/11/2023 with worsening R index finger redness, swelling, and pain. He first noticed a small black area to to the tip of his index finger a week ago. He does not recall any injury to the site. 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 He often gets cuts on his hands. No h/o infections in the past. Over the next few days he developed increasing pain and swelling. He was seen at an Urgent Care on Wednesday and was prescribed Bactrim. He was then seen in ED on Wednesday due to min improvements on antibiotics. He had a bedside I&D performed and was referred to [facility]. Pt states symptoms did not improved and was sent to ED after he was seen by a hand specialist at [facility]. He denies any fevers, chills, sob, chest pain, nausea, vomiting, or diarrhea. He presents to ED afebrile and hemodynamically stable. Work up shows: Wbc 10.3, platelet 284, Scr 1.12, ESR 7, CRP 10.5. XR shows no acute fracture or osseous process. He was started on broad-spectrum antibiotics. He was evaluated by Orthopedics and was taken to OR I&D of the R index finger and flexor tendon sheath (09/11/2023)-->gross purulence encountered tracking directly into the flexor tendon sheath. Cultures were obtained. ID consulted to assist with antimicrobial management. Past Medical History: History reviewed. No pertinent past medical history. Past Surgical History: Past Surgical History: Procedure Laterality Date I&D ABSCESS-SIMPLE (HISTORICAL) Right 09/11/2023 INDEX FINGER Current Medications: Current Facility-Administered Medications Medication Dose Route Frequency Provider Last Rate Last Admin acetaminophen (Tylenol) tablet 650 mg 650 mg Oral q6h PRN Simona Jacqueline, DO Or acetaminophen (Tylenol) suppository 650 mg 650 mg Rectal q6h PRN Simona Jacqueline, DO enoxaparin (Lovenox) syringe 40 mg 40 mg SubCUTAneous Daily Simona Phillips, DO 40 mg at 09/11/23 2203 HYDROmorphone (Dilaudid) injection 0.5 mg 0.5 mg IntraVENous q8h PRN Rocio Anne MD naloxone (Narcan) injection 0.4 mg 0.4 mg IntraVENous q5 min PRN Paramjit Hernandez MD ondansetron ODT (Zofran-ODT) disintegrating tablet 4 mg 4 mg Oral q8h PRN Simona Phillips, DO Or ondansetron (Zofran) injection 4 mg 4 mg IntraVENous q6h PRN Simona Phillips, DO oxyCODONE (Roxicodone) immediate release tablet 5 mg 5 mg Oral q6h PRN Simona Phillips, DO Or oxyCODONE (Roxicodone) immediate release tablet 10 mg 10 mg Oral q6h PRN Simona Phillips, DO 10 mg at 09/12/23 1029 piperacillin-tazobactam (Zosyn) IVPB 3,375 mg 3,375 mg IntraVENous q8h Paramjit Hernandez MD 12.5 mL/hr at 09/12/23 1003 3,375 mg at 09/12/23 1003 polyethylene glycol (PEG) 3350 (Miralax) packet 17 g 17 g Oral Daily PRN Simona Jacqeuline, vancomycin IVPB 1250 mg in 250 mL NS (premix) 1,250 mg IntraVENous q12h Paramjit Hernandez MD 1,250 mg at 09/12/23 1032 Allergies: No Known Allergies Social History: Social History Socioeconomic History Marital status: Single Spouse name: Not on file Number of children: Not on file Years of education: Not on file Highest education level: Not on file Occupational History Not on file Tobacco Use Smoking status: Not on file Smokeless tobacco: Not on file Substance and Sexual Activity Alcohol use: Not on file Drug use: Not on file Sexual activity: Not on file Other Topics Concern Not on file Social History Narrative Not on file Social Determinants of Health Financial Resource Strain: Not on file Food Insecurity: Not on file Transportation Needs: Not on file Physical Activity: Not on file Stress: Not on file Social Connections: Not on file Intimate Partner Violence: Not At Risk (09/12/2023) Humiliation, Afraid, Rape, and Kick questionnaire Fear of Current or Ex-Partner: No Emotionally Abused: No Physically Abused: No Sexually Abused: No Housing Stability: Not on file Family History: No family history on file. Review of Systems: Review of Systems Constitutional: Negative for chills, fatigue and fever. HENT: Negative for congestion, sinus pain, sore throat and trouble swallowing. Eyes: Negative for visual disturbance. Respiratory: Negative for cough, shortness of breath and wheezing. Cardiovascular: Negative for chest pain, palpitations and leg swelling. Gastrointestinal: Negative for abdominal distention, abdominal pain, diarrhea, nausea and vomiting. Endocrine: Negative. Genitourinary: Negative for dysuria, flank pain, frequency, hematuria and urgency. Musculoskeletal: Negative for arthralgias, joint swelling, myalgias and neck stiffness. Skin: Positive for color change and wound. Negative for rash. Allergic/Immunologic: Negative. Neurological: Negative for weakness, numbness and headaches. Psychiatric/Behavioral: Negative. Negative for confusion. All other systems reviewed and are negative. Vitals: Patient Vitals for the past 24 hrs: BP Temp Temp src Pulse Resp SpO2 Height Weight 09/12/23 0930 115/72 36.5 C (97.7 F) Temporal 58 16 99 % -- -- 09/12/23 0515 129/68 (!) 35.9 C (96.7 F) Temporal 61 20 99 % -- -- 09/12/23 0114 137/71 36.7 C (98 F) Temporal 67 20 98 % -- -- 09/11/23 2113 143/76 36.9 C (98.5 F) Temporal 57 20 96 % -- -- 09/11/23 1904 (!) 144/113 36.7 C (98.1 F) Temporal 76 14 97 % 1.88 m (6' 2) 77.1 kg (170 lb) 09/11/23 1845 (!) 145/91 -- -- 68 18 98 % -- -- 09/11/23 1830 (!) 140/90 -- -- 82 20 97 % -- -- 09/11/23 1815 (!) 144/98 -- -- 98 18 100 % -- -- 09/11/23 1800 (!) 138/90 -- -- 95 16 100 % -- -- 09/11/23 1755 -- -- -- 88 -- 100 % -- -- 09/11/23 1745 123/70 36.3 C (97.3 F) Temporal 104 16 100 % -- -- 09/11/23 1620 125/88 -- -- 56 16 98 % -- -- 09/11/23 1423 (!) 138/91 -- -- 53 16 97 % -- -- 09/11/23 1207 135/84 36.2 C (97.2 F) Temporal 68 16 99 % -- -- Physical Exam: Physical Exam Vitals and nursing note reviewed. Constitutional: General: He is not in acute distress. Appearance: Normal appearance. He is not ill-appearing or toxic-appearing. Comments: Alert, pleasant and conversant male, NAD. HENT: Head: Normocephalic and atraumatic. Mouth/Throat: Mouth: Mucous membranes are moist. Pharynx: Oropharynx is clear. No oropharyngeal exudate. Eyes: General: No scleral icterus. Conjunctiva/sclera: Conjunctivae normal. Cardiovascular: Rate and Rhythm: Normal rate and regular rhythm. Heart sounds: No murmur heard. Pulmonary: Effort: Pulmonary effort is normal. No respiratory distress. Breath sounds: Normal breath sounds. No wheezing, rhonchi or rales. Comments: Breathing comfortable on room air Abdominal: General: Bowel sounds are normal. There is no distension. Palpations: Abdomen is soft. Tenderness: There is no abdominal tenderness. There is no right CVA tenderness, left CVA tenderness or guarding. Musculoskeletal: General: Tenderness present. No swelling. Cervical back: Neck supple. Comments: + R hand dressing and acewrap in place; no strike through. Skin: General: Skin is warm and dry. Findings: No rash. Neurological: General: No focal deficit present. Mental Status: He is alert and oriented to person, place, and time. Cranial Nerves: No cranial nerve deficit. Psychiatric: Mood and Affect: Mood normal. Behavior: Behavior normal. Labs: Recent Labs 09/11/23 1442 09/12/23 0103 NA 136 134* K 4.6 4.2 CL 105 102 CO2 20* 20* BUN 16 15 CREATININE 1.12 0.98 GLUCOSE 98 140* CALCIUM 9.5 9.2 Recent Labs 09/11/23 1347 09/12/23 0103 WBC 10.3 9.4 HGB 14.7 13.9 HCT 41.8 40.1 PLT 284 269 LYMPHOPCT 18.2 3* MONOPCT 11.8 0* BASOPCT 0.6 -- NEUTROABS 7.0 -- Micro: 09/10- R finger cx- in process; + gpc 09/10- R finger fungal cx- in process CRP 10.5 ESR 7 Lines: PIV Radiography/Echo/Other: 09/10- CXR 1. Lines/Tubes/Devices/Hardware: None. 2. Lungs: No consolidation or pulmonary edema. 3. Pleura: No pneumothorax or large pleural effusions. 4. Heart and mediastinum: Normal cardiomediastinal contours. 09/10- XR R hand he bone mineralization is normal. The joint spaces are maintained. There is no acute fracture. Impression: No acute osseous process. Antimicrobials,Start/End Dates: Pip/tazo: 09/10- present Vancomycin: 09/10- present Amp/sulb: (09/10) Impression: Status post I&D of the R index finger and flexor tendon sheath (09/11/2023) R index flexor tenosynovitis with purulence in tenon sheath Gram-positive cocci infection Plan: Continue vancomycin and pip/tazo Follow operative cultures and sensitivities Continue wound care and hand soaks per ORS ID service will continue to follow; plans d/w Dr. Emil Horowitz CNP [facility] - Infectious Diseases 12:32 PM 09/12/2023 Total time 55 minutes on this day of encounter includes counseling, coordinating plan of care, record and documentation review before and after visit including documentation and time not explicitly included on EMR time stamp for accounting for open encounter. Images from the original note were not included. Pharmacy Managed Vancomycin Dosing Service Consult Note Consult Date: 09/11/23 Patient Name: Christian Danielson Allergies: Patient has no known allergies. Age: 23 y.o. Sex: male There is no height or weight on file to calculate BMI. DW: 77.1 KG Lab Results Component Value Date CREATININE 1.12 09/11/2023 BUN 16 09/11/2023 WBC 10.3 09/11/2023 Calculated CrCl: 113 mL/min Consulted By: Paramjit Hernandez MD Infectious Diagnosis: Bone and joint infection (AUC Goal 400-600 mg/L*hr) Random Vancomycin Level Due: 09/12 with AM labs Antimicrobials: Patient recently received an antibiotic (last 12 hours) Date/Time Action Medication Dose Rate 09/11/23 1327 New Bag ampicillin-sulbactam (Unasyn) 3,000 mg in sodium chloride 0.9 % 100 mL IVPB (Add-Nazareth) 3,000 mg 200 mL/hr Assessment/Plan: Doses, serum creatinine, and vancomycin levels interfaced automatically to [employer] and data has been analyzed and interpreted. Start Vancomycin 1750 mg load once followed by 1250 mg every 12 hours based on patient age, weight, renal function, and infectious diagnosis (16.2 mg/kg). Predicted AUC = 574 mg/L*hr (goal 400-600 mg/L*hr) PAUC = 83% (probability that AUC is >400 mg/L*hr) Pconc* = 40% (probability that Ctrough is above 20 mcg/mL (toxicity)) Will assess random level on 09/12 with AM labs and adjust as appropriate. Trend serum creatinine. Orders placed. Thank you for this consult. Please secure text or call with questions. DATE: 09/11/23 TIME: 7:18 PM Thiago Beaulieu RPh Clinical Pharmacist Available via Secure Chat Associated Order(s): IP CONSULT TO ORTHOPAEDIC SURGERY Images from the original note were not included. Ortho H&P/Consult Patient: Christian Danielson Date of : 2000 Acct: [id number] PCP: No primary care provider on file. Date of Admission: 09/11/2023 Date of Service: Pt seen/examined on 09/11/2023 Chief Complaint: Right index finger pain and swelling, progressive History Of Present Illness: This is a 23 y.o. bilateral hand dominant male who presents with a 1 week history of progressive volar index finger pain and swelling. 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 Initially the injury and pain which is contained in this area but progressed proximally up his finger. He was placed on Bactrim and has been on it for 3 or 4 days but the symptoms have continued to progress. Denies any fevers or chills. No other history of severe infections. Initially presented to [facility] and due to concerns for pyogenic flexor tenosynovitis he was transferred to [facility]. He has no other medical problems Patient ambulation status: no difficulty. Antiplatelets/Anticoagulation includes: none. 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 Past Surgical History: No past surgical history on file. Home Medications: Prior to Admission medications Not on File Current Hospital Medications: Current Facility-Administered Medications: ampicillin-sulbactam (Unasyn) 3,000 mg in sodium chloride 0.9 % 100 mL IVPB (Add-Nazareth), 3,000 mg, IntraVENous, Once, Alek Germain MD No current outpatient medications on file. Allergies: Patient has no known allergies. Social History: Social History Socioeconomic History Marital status: Single Spouse name: Not on file Number of children: Not on file Years of education: Not on file Highest education level: Not on file Occupational History Not on file Tobacco Use Smoking status: Not on file Smokeless tobacco: Not on file Substance and Sexual Activity Alcohol use: Not on file Drug use: Not on file Sexual activity: Not on file Other Topics Concern Not on file Social History Narrative Not on file Social Determinants of Health Financial Resource Strain: Not on file Food Insecurity: Not on file Transportation Needs: Not on file Physical Activity: Not on file Stress: Not on file Social Connections: Not on file Intimate Partner Violence: Not on file Housing Stability: Not on file Family History: No family history on file. Further Family History is noncontributory to this injury. REVIEW OF SYSTEMS: Review of Systems - General ROS: negative for - chills, fatigue, fever, malaise or night sweats Psychological ROS: negative Ophthalmic ROS: negative ENT ROS: negative for - headaches or sore throat Hematological and Lymphatic ROS: negative for - bleeding problems or blood clots Respiratory ROS: no cough, shortness of breath, or wheezing Cardiovascular ROS: no chest pain or dyspnea on exertion Gastrointestinal ROS: negative Musculoskeletal ROS: See HPI Neurological ROS: negative for - bowel and bladder control changes, gait disturbance or numbness/tingling All other systems reviewed and are negative PHYSICAL EXAM: BP 135/84 Pulse 68 Temp 36.2 C (97.2 F) (Temporal) Resp 16 SpO2 99% GENERAL APPEARANCE: Awake and oriented x3. No acute distress, except appropriate to injury. MOOD AND AFFECT: Calm appropriate to situation GAIT AND STATION: Patient is in bed and able to ambulate REFLEXES: No clonus or Babinski. COORDINATION and BALANCE: Patient is grossly coordinated Lymphadenopathy: none on examination of the affected extremity(s) Right Upper Extremity: Examination of the right hand reveals significant swelling of the index finger held in a flexed posture. Mild erythema. There is a lesion at the distal tip of the index finger concerning for a felon. There is exquisite tenderness palpation along the path of the flexor tendon down to the level of the A1 wesley. There is exquisite tenderness to any passive extension. Sensation is intact distally. The tip of the finger is well-perfused. There is no tenderness palpation in the distal palm and proximal. All of the other remaining digits are benign. Labs: CBC: No results found for: WBC, RBC, HEMOGLOBIN BMP:No results found for: GLUCOSE, SODIUM, POTASSIUM, CHLORIDE, CO2, BUN, CREATININE, CALCIUM PT/INR: No results found for: PT, INR, APTT Type and Screen: No results found for: RH, LABANTI CRP: No results found for: CRP ESR: No results found for: SEDRATE HgBA1c: No components found for: LABA1C The above labs were reviewed by me. Radiology: The below imaging was independently reviewed and interpreted XR: Right hand: No acute fracture or dislocation. Skeletally mature. Soft tissue swelling of the index finger. No evidence of osteomyelitis. Radiology report reviewed. ASSESSMENT: 23 y.o. male with clinical concern for right index finger pyogenic flexor tenosynovitis PLAN: -D/W Dr. Olvera -Plan for OR this evening for right index finger I&D -NPO -Clearance/optimization per anesthesia -Consented for above procedure -Preoperative complete -Ice -Recommend medical admission postoperatively -Pain control and medical management per medicine Donnie Swan MD Orthopaedic Surgery, PGY4 [facility] [phone] documented in this encounter [facility] 09-12-2023 Note Med Team Progress Tita dukes Christian Jagjit : 2000(23 y.o.) Date: September 12, 2023 Med Team: D Attending: Dr. Hemphill Chief Complaint: hand pain Subjective: - Overnight, patient was admitted. - Currently, patient soaking his hand per ortho instructions. Ortho had just removed the packing from his wound. Due to this, he is currently in 10/10 pain. Pain was better controlled prior to this with the oxycodone. Ordered 1x dose IV dilaudid for acute breakthrough pain. Otherwise, patient denies symptoms other than hand pain. PRN meds used in last 24hrs: oxycodone 10mg x2 Review of Systems Constitutional: Negative for appetite change, chills and fever. Respiratory: Negative for cough and shortness of breath. Cardiovascular: Negative for chest pain and palpitations. Gastrointestinal: Negative for abdominal pain, constipation, diarrhea, nausea and vomiting. Skin: Positive for wound (and pain). Psychiatric/Behavioral: Negative for agitation and confusion. Scheduled Meds:enoxaparin, 40 mg, SubCUTAneous, Daily piperacillin-tazobactam, 3,375 mg, IntraVENous, q8h vancomycin, 1,250 mg, IntraVENous, q12h Continuous Infusions: Objective: BP 129/68 (BP Location: Left arm, Patient Position: Lying) Pulse 61 Temp (!) 35.9 ?C (96.7 ?F) (Temporal) Resp 20 Ht 6' 2 (1.88 m) Wt 170 lb (77.1 kg) SpO2 99% BMI 21.83 kg/m? Physical Exam Vitals and nursing note reviewed. Constitutional: Appearance: Normal appearance. He is not ill-appearing. Comments: Appears uncomfortable, soaking hand at bedside after ortho removed packing HENT: Head: Normocephalic and atraumatic. Mouth/Throat: Mouth: Mucous membranes are moist. Eyes: Conjunctiva/sclera: Conjunctivae normal. Pupils: Pupils are equal, round, and reactive to light. Cardiovascular: Rate and Rhythm: Normal rate and regular rhythm. Pulses: Normal pulses. Heart sounds: Normal heart sounds. Pulmonary: Effort: Pulmonary effort is normal. No respiratory distress. Breath sounds: Normal breath sounds. Abdominal: General: Bowel sounds are normal. There is no distension. Palpations: Abdomen is soft. Tenderness: There is no abdominal tenderness. Musculoskeletal: General: Tenderness (R hand) present. Right lower leg: No edema. Left lower leg: No edema. Skin: General: Skin is warm and dry. Comments: R hand soaking at bedside. Neurovascularly intact. Wounds with sanguinous drainage. Neurological: General: No focal deficit present. Mental Status: He is alert and oriented to person, place, and time. [facility] Labs within last 24 hours Auto WBC Date Value Ref Range Status 09/12/2023 9.4 3.6 - 10.7 10*3/uL Final Hemoglobin Date Value Ref Range Status 09/12/2023 13.9 13.0 - 18.0 g/dL Final 09/11/2023 14.7 13.0 - 18.0 g/dL Final Hematocrit Date Value Ref Range Status 09/12/2023 40.1 40.0 - 52.0 % Final Platelets Date Value Ref Range Status 09/12/2023 269 140 - 440 10*3/uL Final MCV Date Value Ref Range Status 09/12/2023 85.3 77.0 - 99.0 fL Final SODIUM Date Value Ref Range Status 09/12/2023 134 (L) 135 - 145 mmol/L Final POTASSIUM Date Value Ref Range Status 09/12/2023 4.2 3.5 - 5.1 mmol/L Final CHLORIDE Date Value Ref Range Status 09/12/2023 102 98 - 107 mmol/L Final CARBON DIOXIDE Date Value Ref Range Status 09/12/2023 20 (L) 22 - 30 mmol/L Final UREA NITROGEN Date Value Ref Range Status 09/12/2023 15 9 - 20 mg/dL Final CREATININE Date Value Ref Range Status 09/12/2023 0.98 0.66 - 1.25 mg/dL Final 09/11/2023 1.12 0.66 - 1.25 mg/dL Final GLUCOSE Date Value Ref Range Status 09/12/2023 140 (H) 70 - 100 mg/dL Final CALCIUM Date Value Ref Range Status 09/12/2023 9.2 8.4 - 10.4 mg/dL Final INR Date Value Ref Range Status 09/11/2023 1.0 0.9 - 1.1 Final No results found for: CKTOTAL, CKMB, TROPONINI No results found for: PROCAL, CHOL, TRIG, HDL, TSH, VITD25, HGBA1C, VANCOTROUGH Assessment and Plan: R index finger suppurative flexor tenosynovitis -XR hand: no acute osseus process -wound culture: rare gram + cocci in clusters Plan -orthopedic surgery following, appreciate recs -s/p OR with orthopedic surgery for I&D 09/10 evening -wound/post-op care per ortho -infectious disease consult, appreciate recs -vancoymcin and zosyn (pharmacy to dose vanc) -pain regimen: tylenol q6hrs PRN, oxycodone 5-10mg q6hrs PRN. -added PRN dilaudid 0.5mg IV for dressing changes -daily BMP, CBC Other Problems: Chronic Problems and Follow Up Items: - Goals of Care: FULL CODE - DVT Prophylaxis: Lovenox 40 q24hr - CrCl >30 - GI Prophylaxis: Not Indicated - Diet: General Please see notes and addendums on H&P dated today. Agree with above Addendums may have been dictated using the [employer] Voice Recognition Feature. The document was proofread; however, unrecognized voice r (more content not included)... [facility] 09-11-2023 History and physical note Internal Medicine: Med Team Initial History and Physical Christian Danielson : 2000(23 y.o.) Date: September 11, 2023 TEAM: D Attending: Dr. Hemphill Subjective: Chief Complaint: hand pain Hand Pain Pertinent negatives include no chest pain. Christian Danielson is a 23 y.o. male with PMH GERD, H. Pylori, concussions that presented to [facility] on 09/11/2023 from outside facility ([place] [facility]) due to hand pain, swelling, redness. Per chart review, patient went to outside hospital ED approx 5 days [facility] and placed on Bactrim po. When this failed to improve pain/swelling on right hand index finger, returned to ED where he underwent I&D (no cx found in Epic) and instructed to cont bactrim and referred to [facility]. Pt was seen by [facility] by hand specialist and sent to ED for more emergent care. He denies any fevers, chills, sob, chest pain, nausea, vomiting, or diarrhea. In ED today at [facility], vitals significant for HR 68 135/84 RR 16 99% RA and afebrile. Labs significant for bicarb 20. ESR 7 CRP 10. R hand xray showed no acute osseus process. CXR with no acute process. Orthopedic surgery was consulted We evaluated patient on return from OR with ortho for incision and drainage with irrigation and debridement. Patient resting in bed with hand wrapped and dressing CDI. He states that pain level is manageable at this time. He is not sure how he got this wound. He states approximately 1 week ago he woke up and it seemed like he had a hang nail that then blew up. Denies any trauma to finger or any work injuries that may have incited this event. He states he has not had this happen to him before and has never been hospitalized for infections in the past. No significant PMH and no daily medications. He states he got a Tdap booster vaccination 1 year ago (very certain of this as it was a job requirement). He drinks alcohol on the weekends. Smokes an e-vape with nicotine, denies smoking cigarettes. Denies illicit drug use. Pt seen and examined earlier today on bedside resident teaching rounds. Hx and PE independently obtained and agree with above with additions in green. No known inciting event per pt. Seen post-op the morning after admission, RUE in post-op wrap. Pain control ok with po oxy, but was much more during dressing change requiring IV hydromorphone x 1. Tolerating IV Abx with no n/v/d/rash. Review of Systems Constitutional: Negative for chills, fatigue and fever. Respiratory: Negative for cough and shortness of breath. Cardiovascular: Negative for chest pain and leg swelling. Gastrointestinal: Negative for abdominal pain, constipation, diarrhea, nausea and vomiting. Skin: Positive for wound (and associated pain). Psychiatric/Behavioral: Negative for confusion. Agree. History reviewed. No pertinent past medical history. Past Surgical History: Procedure Laterality Date I&D ABSCESS-SIMPLE (HISTORICAL) Right 09/11/2023 INDEX FINGER No family history on file. Social History Tobacco Use Smoking Status Not on file Smokeless Tobacco Not on file Social History Substance and Sexual Activity Alcohol Use None Social History Substance and Sexual Activity Drug Use Not on file No Known Allergies Prior to Admission medications Not on File Objective: Vitals: 09/11/23 1815 09/11/23 1830 09/11/23 1845 09/11/23 1904 BP: (!) 144/98 (!) 140/90 (!) 145/91 (!) 144/113 BP Location: Left arm Patient Position: Sitting Pulse: 98 82 68 76 Resp: 18 20 18 14 Temp: 36.7 C (98.1 F) TempSrc: Temporal SpO2: 100% 97% 98% 97% Weight: 170 lb (77.1 kg) Height: 6' 2 (1.88 m) Physical Exam Vitals and nursing note reviewed. Constitutional: General: He is not in acute distress. Appearance: Normal appearance. He is not ill-appearing. HENT: Head: Normocephalic and atraumatic. Mouth/Throat: Mouth: Mucous membranes are dry. Eyes: Extraocular Movements: Extraocular movements intact. Pupils: Pupils are equal, round, and reactive to light. Cardiovascular: Rate and Rhythm: Normal rate and regular rhythm. Pulses: Normal pulses. Heart sounds: Normal heart sounds. Pulmonary: Effort: Pulmonary effort is normal. No respiratory distress. Breath sounds: Normal breath sounds. Abdominal: General: Bowel sounds are normal. There is no distension. Palpations: Abdomen is soft. Tenderness: There is no abdominal tenderness. Musculoskeletal: Right lower leg: No edema. Left lower leg: No edema. Comments: R hand in dressing, CDI Skin: General: Skin is warm and dry. Neurological: General: No focal deficit present. Mental Status: He is alert and oriented to person, place, and time. Psychiatric: Mood and Affect: Mood normal. Behavior: Behavior normal. Thought Content: Thought content normal. Morning after admission: A&Ox3. Cooperative. Makes good eye contact. HEENT- MMM. Neck-supple Cor- RRR, nl S1S2. No murmurs. Lungs- CTA. Abd (+) BS, soft NT. Ext- RUE in post op wrap. Thumb and fingertips warm, mobile with intact sensation. LUE benign. Bilat LE benign with no edema, rash. [facility] within last 24 hours Auto WBC Date Value Ref Range Status 09/11/2023 10.3 3.6 - 10.7 10*3/uL Final Hemoglobin Date Value Ref Range Status 09/11/2023 14.7 13.0 - 18.0 g/dL Final Hematocrit Date Value Ref Range Status 09/11/2023 41.8 40.0 - 52.0 % Final Platelets Date Value Ref Range Status 09/11/2023 284 140 - 440 10*3/uL Final MCV Date Value Ref Range Status 09/11/2023 85.7 77.0 - 99.0 fL Final SODIUM Date Value Ref Range Status 09/11/2023 136 135 - 145 mmol/L Final POTASSIUM Date Value Ref Range Status 09/11/2023 4.6 3.5 - 5.1 mmol/L Final CHLORIDE Date Value Ref Range Status 09/11/2023 105 98 - 107 mmol/L Final CARBON DIOXIDE Date Value Ref Range Status 09/11/2023 20 (L) 22 - 30 mmol/L Final UREA NITROGEN Date Value Ref Range Status 09/11/2023 16 9 - 20 mg/dL Final CREATININE Date Value Ref Range Status 09/11/2023 1.12 0.66 - 1.25 mg/dL Final GLUCOSE Date Value Ref Range Status 09/11/2023 98 70 - 100 mg/dL Final CALCIUM Date Value Ref Range Status 09/11/2023 9.5 8.4 - 10.4 mg/dL Final INR Date Value Ref Range Status 09/11/2023 1.0 0.9 - 1.1 Final No results found for: CKTOTAL, CKMB, TROPONINI No results found for: PROCAL, CHOL, TRIG, HDL, TSH, VITD25, HGBA1C, VANCOTROUGH Assessment and Plan: Principal Problem: Tenosynovitis R index finger suppurative flexor tenosynovitis -ESR 7, CRP 10.5 -XR hand: no acute osseus process Plan -orthopedic surgery following, appreciate recs -s/p OR with orthopedic surgery for I&D 09/10 evening -wound/post-op care per ortho -infectious disease consult, appreciate recs -vancoymcin and zosyn (pharmacy to dose vanc) -pain regimen: tylenol q6hrs PRN, oxycodone 5-10mg q6hrs PRN -daily BMP, CBC Agree. Pt now s/p wash-out of tenosynovitis. Gram stain showing PMN's and a few GPC in clusters. Agree with Vanc/Pip-Tazo for now pending add'l micro info. Agree with ID Input given tendon sheath involvement in hand. Note pt HAS HAD Tdap within past year. - add multi-modal pain control with standing acetaminophen and ibuprofen. Cont po oxy (can increase frequency to q 4 hours if needed) and add prn IV hydromorphone for breakthrough pain and wound changes. - Goals of Care: FULL CODE - DVT Prophylaxis: Lovenox 40 q24hr - CrCl >30 - GI Prophylaxis: Not Indicated - Diet: General - BMI Classification: Body mass index is 21.83 kg/m . Normal (BMI 18.5-24.9) - Disposition: Admit to F. - Given the signs and symptoms associated with his primary diagnosis in the setting of his comorbid conditions, he is expected to require >48 hrs of hospital care (i.e. inpatient level care). Attending Supervising Physician's Attestation Statement for Admission I performed a history and physical examination on the patient and discussed the management with the resident physician. I reviewed and agree with the findings and plan as documented in their note except as amended in green font. Addendums may have been dictated using the [employer] Voice Recognition Feature. The document was proofread; however, unrecognized voice recognition hat cutter errors may be present. Please note, the time of this note does not reflect the time I saw this patient today, but the time of this documentaton. Discussed with: [x]Residents [x]Patient []Family []RN []Consultants []SW/TCC [] PT/OT []Pharmacist []Other Reviewed: [x]Epic notes [x]Radiology studies [x]Labs [x]EKG []Other Initial Inpatient: Spent total time , 75 minutes counseling or coordinating care, chart historical review, and discussion regarding management of infection and pain control with med team and pt at length. 7AM-5PM: contact resident on [facility] Med Team (found by hovering over attending's name on left side of patient's chart) 5PM-7AM: contact AI3 resident [facility] 09-11-2023 Note Internal Medicine: M ed Team Initial History and Physical Christian Danielson : 2000(23 y.o.) Date: September 11, 2023 TEAM: D Attending: Dr. Hemphill Subjective: Chief Complaint: hand pain Hand Pain Pertinent negatives include no chest pain. Christian Danielson is a 23 y.o. male with PMH GERD, H. Pylori, concussions that presented to [facility] on 09/11/2023 from outside facility ([place] [facility]) due to hand pain, swelling, redness. Per chart review, patient went to outside hospital ED approx 5 days [facility]GAN [facility]ER and placed on Bactrim po. When this failed to improve pain/swelling on right hand index finger, returned to ED where he underwent I&D (no cx found in Epic) and instructed to cont bactrim and referred to [facility]. Pt was seen by [facility] by hand specialist and sent to ED for more emergent care. He denies any fevers, chills, sob, chest pain, nausea, vomiting, or diarrhea. In ED today at [facility], vitals significant for HR 68 135/84 RR 16 99% RA and afebrile. Labs significant for bicarb 20. ESR 7 CRP 10. R hand xray showed no acute osseus process. CXR with no acute process. Orthopedic surgery was consulted We evaluated patient on return from OR with ortho for incision and drainage with irrigation and debridement. Patient resting in bed with hand wrapped and dressing CDI. He states that pain level is manageable at this time. He is not sure how he got this wound. He states approximately 1 week ago he woke up and it seemed like he had a hang nail that then blew up. Denies any trauma to finger or any work injuries that may have incited this event. He states he has not had this happen to him before and has never been hospitalized for infections in the past. No significant PMH and no daily medications. He states he got a Tdap booster vaccination 1 year ago (very certain of this as it was a job requirement). He drinks alcohol on the weekends. Smokes an e-vape with nicotine, denies smoking cigarettes. Denies illicit drug use. Pt seen and examined earlier today on bedside resident teaching rounds. Hx and PE independently obtained and agree with above with additions in green. No known inciting event per pt. Seen post-op the morning after admission, RUE in post-op wrap. Pain control ok with po oxy, but was much more during dressing change requiring IV hydromorphone x 1. Tolerating IV Abx with no n/v/d/rash. Review of Systems Constitutional: Negative for chills, fatigue and fever. Respiratory: Negative for cough and shortness of breath. Cardiovascular: Negative for chest pain and leg swelling. Gastrointestinal: Negative for abdominal pain, constipation, diarrhea, nausea and vomiting. Skin: Positive for wound (and associated pain). Psychiatric/Behavioral: Negative for confusion. Agree. History reviewed. No pertinent past medical history. Past Surgical History: Procedure Laterality Date I&D ABSCESS-SIMPLE (HISTORICAL) Right 09/11/2023 INDEX FINGER No family history on file. Social History Tobacco Use Smoking Status Not on file Smokeless Tobacco Not on file Social History Substance and Sexual Activity Alcohol Use None Social History Substance and Sexual Activity Drug Use Not on file No Known Allergies Prior to Admission medications Not on File Objective: Vitals: 09/11/23 1815 09/11/23 1830 09/11/23 1845 09/11/23 1904 BP: (!) 144/98 (!) 140/90 (!) 145/91 (!) 144/113 BP Location: Left arm Patient Position: Sitting Pulse: 98 82 68 76 Resp: 18 20 18 14 Temp: 36.7 ?C (98.1 ?F) TempSrc: Temporal SpO2: 100% 97% 98% 97% Weight: 170 lb (77.1 kg) Height: 6' 2 (1.88 m) Physical Exam Vitals and nursing note reviewed. Constitutional: General: He is not in acute distress. Appearance: Normal appearance. He is not ill-appearing. HENT: Head: Normocephalic and atraumatic. Mouth/Throat: Mouth: Mucous membranes are dry. Eyes: Extraocular Movements: Extraocular movements intact. Pupils: Pupils are equal, round, and reactive to light. Cardiovascular: Rate and Rhythm: Normal rate and regular rhythm. Pulses: Normal pulses. Heart sounds: Normal heart sounds. Pulmonary: Effort: Pulmonary effort is normal. No respiratory distress. Breath sounds: Normal breath sounds. Abdominal: General: Bowel sounds are normal. There is no distension. Palpations: Abdomen is soft. Tenderness: There is no abdominal tenderness. Musculoskeletal: Right lower leg: No edema. Left lower leg: No edema. Comments: R hand in dressing, CDI Skin: General: Skin is warm and dry. Neurological: General: No focal deficit present. Mental Status: He is alert and oriented to person, place, and time. Psychiatric: Mood and Affect: Mood normal. Behavior: Behavior normal. Thought Content: Thought content normal. Morning after admission: A&Ox3. Cooperative. Makes good eye contact. HEENT- MMM. Neck-supple Cor- RRR, nl S1S2. No murmurs. Lungs- CTA. Abd (+) BS, soft NT. Ext- R (more content not included)... [facility] 09-11-2023 History and physical note Internal Medicine: Med Team Initial History and Physical Christian Danielson : 2000(23 y.o.) Date: September 11, 2023 TEAM: D Attending: Dr. Hemphill Subjective: Chief Complaint: hand pain Hand Pain Pertinent negatives include no chest pain. Christian Danielson is a 23 y.o. male with PMH GERD, H. Pylori, concussions that presented to [facility] on 09/11/2023 from outside facility ([place] [facility]) due to hand pain, swelling, redness. Per chart review, patient went to outside hospital ED approx 5 days ORGAN TUNER and placed on Bactrim po. When this failed to improve pain/swelling on right hand index finger, returned to ED where he underwent I&D (no cx found in Epic) and instructed to cont bactrim and referred to [facility]. Pt was seen by [facility] by hand specialist and sent to ED for more emergent care. He denies any fevers, chills, sob, chest pain, nausea, vomiting, or diarrhea. In ED today at [facility], vitals significant for HR 68 135/84 RR 16 99% RA and afebrile. Labs significant for bicarb 20. ESR 7 CRP 10. R hand xray showed no acute osseus process. CXR with no acute process. Orthopedic surgery was consulted We evaluated patient on return from OR with ortho for incision and drainage with irrigation and debridement. Patient resting in bed with hand wrapped and dressing CDI. He states that pain level is manageable at this time. He is not sure how he got this wound. He states approximately 1 week ago he woke up and it seemed like he had a hang nail that then blew up. Denies any trauma to finger or any work injuries that may have incited this event. He states he has not had this happen to him before and has never been hospitalized for infections in the past. No significant PMH and no daily medications. He states he got a Tdap booster vaccination 1 year ago (very certain of this as it was a job requirement). He drinks alcohol on the weekends. Smokes an e-vape with nicotine, denies smoking cigarettes. Denies illicit drug use. Pt seen and examined earlier today on bedside resident teaching rounds. Hx and PE independently obtained and agree with above with additions in green. No known inciting event per pt. Seen post-op the morning after admission, RUE in post-op wrap. Pain control ok with po oxy, but was much more during dressing change requiring IV hydromorphone x 1. Tolerating IV Abx with no n/v/d/rash. Review of Systems Constitutional: Negative for chills, fatigue and fever. Respiratory: Negative for cough and shortness of breath. Cardiovascular: Negative for chest pain and leg swelling. Gastrointestinal: Negative for abdominal pain, constipation, diarrhea, nausea and vomiting. Skin: Positive for wound (and associated pain). Psychiatric/Behavioral: Negative for confusion. Agree. History reviewed. No pertinent past medical history. Past Surgical History: Procedure Laterality Date I&D ABSCESS-SIMPLE (HISTORICAL) Right 09/11/2023 INDEX FINGER No family history on file. Social History Tobacco Use Smoking Status Not on file Smokeless Tobacco Not on file Social History Substance and Sexual Activity Alcohol Use None Social History Substance and Sexual Activity Drug Use Not on file No Known Allergies Prior to Admission medications Not on File Objective: Vitals: 09/11/23 1815 09/11/23 1830 09/11/23 1845 09/11/23 1904 BP: (!) 144/98 (!) 140/90 (!) 145/91 (!) 144/113 BP Location: Left arm Patient Position: Sitting Pulse: 98 82 68 76 Resp: 18 20 18 14 Temp: 36.7 C (98.1 F) TempSrc: Temporal SpO2: 100% 97% 98% 97% Weight: 170 lb (77.1 kg) Height: 6' 2 (1.88 m) Physical Exam Vitals and nursing note reviewed. Constitutional: General: He is not in acute distress. Appearance: Normal appearance. He is not ill-appearing. HENT: Head: Normocephalic and atraumatic. Mouth/Throat: Mouth: Mucous membranes are dry. Eyes: Extraocular Movements: Extraocular movements intact. Pupils: Pupils are equal, round, and reactive to light. Cardiovascular: Rate and Rhythm: Normal rate and regular rhythm. Pulses: Normal pulses. Heart sounds: Normal heart sounds. Pulmonary: Effort: Pulmonary effort is normal. No respiratory distress. Breath sounds: Normal breath sounds. Abdominal: General: Bowel sounds are normal. There is no distension. Palpations: Abdomen is soft. Tenderness: There is no abdominal tenderness. Musculoskeletal: Right lower leg: No edema. Left lower leg: No edema. Comments: R hand in dressing, CDI Skin: General: Skin is warm and dry. Neurological: General: No focal deficit present. Mental Status: He is alert and oriented to person, place, and time. Psychiatric: Mood and Affect: Mood normal. Behavior: Behavior normal. Thought Content: Thought content normal. Morning after admission: A&Ox3. Cooperative. Makes good eye contact. HEENT- MMM. Neck-supple Cor- RRR, nl S1S2. No murmurs. Lungs- CTA. Abd (+) BS, soft NT. Ext- RUE in post op wrap. Thumb and fingertips warm, mobile with intact sensation. LUE benign. Bilat LE benign with no edema, rash. [facility] within last 24 hours Auto WBC Date Value Ref Range Status 09/11/2023 10.3 3.6 - 10.7 10*3/uL Final Hemoglobin Date Value Ref Range Status 09/11/2023 14.7 13.0 - 18.0 g/dL Final Hematocrit Date Value Ref Range Status 09/11/2023 41.8 40.0 - 52.0 % Final Platelets Date Value Ref Range Status 09/11/2023 284 140 - 440 10*3/uL Final MCV Date Value Ref Range Status 09/11/2023 85.7 77.0 - 99.0 fL Final SODIUM Date Value Ref Range Status 09/11/2023 136 135 - 145 mmol/L Final POTASSIUM Date Value Ref Range Status 09/11/2023 4.6 3.5 - 5.1 mmol/L Final CHLORIDE Date Value Ref Range Status 09/11/2023 105 98 - 107 mmol/L Final CARBON DIOXIDE Date Value Ref Range Status 09/11/2023 20 (L) 22 - 30 mmol/L Final UREA NITROGEN Date Value Ref Range Status 09/11/2023 16 9 - 20 mg/dL Final CREATININE Date Value Ref Range Status 09/11/2023 1.12 0.66 - 1.25 mg/dL Final GLUCOSE Date Value Ref Range Status 09/11/2023 98 70 - 100 mg/dL Final CALCIUM Date Value Ref Range Status 09/11/2023 9.5 8.4 - 10.4 mg/dL Final INR Date Value Ref Range Status 09/11/2023 1.0 0.9 - 1.1 Final No results found for: CKTOTAL, CKMB, TROPONINI No results found for: PROCAL, CHOL, TRIG, HDL, TSH, VITD25, HGBA1C, VANCOTROUGH Assessment and Plan: Principal Problem: Tenosynovitis R index finger suppurative flexor tenosynovitis -ESR 7, CRP 10.5 -XR hand: no acute osseus process Plan -orthopedic surgery following, appreciate recs -s/p OR with orthopedic surgery for I&D 09/10 evening -wound/post-op care per ortho -infectious disease consult, appreciate recs -vancoymcin and zosyn (pharmacy to dose vanc) -pain regimen: tylenol q6hrs PRN, oxycodone 5-10mg q6hrs PRN -daily BMP, CBC Agree. Pt now s/p wash-out of tenosynovitis. Gram stain showing PMN's and a few GPC in clusters. Agree with Vanc/Pip-Tazo for now pending add'l micro info. Agree with ID Input given tendon sheath involvement in hand. Note pt HAS HAD Tdap within past year. - add multi-modal pain control with standing acetaminophen and ibuprofen. Cont po oxy (can increase frequency to q 4 hours if needed) and add prn IV hydromorphone for breakthrough pain and wound changes. - Goals of Care: FULL CODE - DVT Prophylaxis: Lovenox 40 q24hr - CrCl >30 - GI Prophylaxis: Not Indicated - Diet: General - BMI Classification: Body mass index is 21.83 kg/m . Normal (BMI 18.5-24.9) - Disposition: Admit to F. - Given the signs and symptoms associated with his primary diagnosis in the setting of his comorbid conditions, he is expected to require >48 hrs of hospital care (i.e. inpatient level care). Attending Supervising Physician's Attestation Statement for Admission I performed a history and physical examination on the patient and discussed the management with the resident physician. I reviewed and agree with the findings and plan as documented in their note except as amended in green font. Addendums may have been dictated using the [employer] Voice Recognition Feature. The document was proofread; however, unrecognized voice recognition hat cutter errors may be present. Please note, the time of this note does not reflect the time I saw this patient today, but the time of this documentaton. Discussed with: [x]Residents [x]Patient []Family []RN []Consultants []SW/TCC [] PT/OT []Pharmacist []Other Reviewed: [x]Epic notes [x]Radiology studies [x]Labs [x]EKG []Other Initial Inpatient: Spent total time , 75 minutes counseling or coordinating care, chart historical review, and discussion regarding management of infection and pain control with med team and pt at length. 7AM-5PM: contact resident on [facility] Med Team (found by hovering over attending's name on left side of patient's chart) 5PM-7AM: contact AI3 resident documented in this encounter [facility] 09-11-2023 Consult note Formatting of th is note is different from the original. Images from the original note were not included. Pharmacy Managed Vancomycin Dosing Service Consult Note Consult Date: 09/11/23 Patient Name: Christian Danielson Allergies: Patient has no known allergies. Age: 23 y.o. Sex: male There is no height or weight on file to calculate BMI. DW: 77.1 KG Lab Results Component Value Date CREATININE 1.12 09/11/2023 BUN 16 09/11/2023 WBC 10.3 09/11/2023 Calculated CrCl: 113 mL/min Consulted By: Paramjit Hernandez MD Infectious Diagnosis: Bone and joint infection (AUC Goal 400-600 mg/L*hr) Random Vancomycin Level Due: 09/12 with AM labs Antimicrobials: Patient recently received an antibiotic (last 12 hours) Date/Time Action Medication Dose Rate 09/11/23 1327 New Bag ampicillin-sulbactam (Unasyn) 3,000 mg in sodium chloride 0.9 % 100 mL IVPB (Add-Nazareth) 3,000 mg 200 mL/hr Assessment/Plan: Doses, serum creatinine, and vancomycin levels interfaced automatically to [employer] and data has been analyzed and interpreted. Start Vancomycin 1750 mg load once followed by 1250 mg every 12 hours based on patient age, weight, renal function, and infectious diagnosis (16.2 mg/kg). Predicted AUC = 574 mg/L*hr (goal 400-600 mg/L*hr) PAUC = 83% (probability that AUC is >400 mg/L*hr) Pconc* = 40% (probability that Ctrough is above 20 mcg/mL (toxicity)) Will assess random level on 09/12 with AM labs and adjust as appropriate. Trend serum creatinine. Orders placed. Thank you for this consult. Please secure text or call with questions. DATE: 09/11/23 TIME: 7:18 PM Thiago Beaulieu ed Clinical Pharmacist Available via Secure Chat [facility] 09-11-2023 Note Formatting of this n ote might be different from the original. Patient's father, Rell, updated by RN at this time via phone call. [facility] 09-11-2023 Note Formatting of this n ote might be different from the original. Patient's father, Rell, updated by RN at this time via phone call. [facility] 09-11-2023 Note Formatting of this n ote might be different from the original. Report called to RN on H5 by Antonio Christensen RN. No questions asked. [facility] 09-11-2023 Note Formatting of this n ote might be different from the original. Report called to RN on H5 by Antonio Christensen RN. No questions asked. [facility] 09-11-2023 Hospital Discharge instructions Donnie Swan MD - 09/11/2023 6:09 PM EDT Images from the original note were not included. General Orthopedic Discharge Instructions The following instructions have been prepared to help you when you leave the hospital. These guidelines are for the post surgery period. -Activity & Weightbearing: -Non weight bearing to your right arm. Meaning no pushing, pulling, lifting, or supporting your body weight. -Ok for full range of motion in your injured arm as you can tolerate it. We encourage frequent stretching and moving the shoulder, elbow, wrist, and fingers to prevent stiffness. -Ease into normal activity as tolerated. Avoid heavy lifting/pulling/otherwise strenuous activity. -Wound Care and Hygiene: Soaks Instructions: - Be sure to take the prescribed antibiotics until completely gone (do not stop these early, even if you think you are better). - Completely submerge the affected area in warm, soapy water (dish soap is fine) - You will perform this soak 3 times per day, for 20 minutes each soak. - After the soak, pat dry, and then cover the wound with gauze or other sterile dressing materials. - Reapply splint or shoe (if given), and then wrap in PASCALE wrap. - You may notice that there is a hole or open wound that persists in the skin for some time. This is the desired effect. We want the wound to be open, so that soaks can cleanse the wound. Red flag symptoms: these are signs that the infection is getting worse and that you should return to the ED for further evaluation: - Worsening redness or spread of redness to new areas. - Worsening of pain (pain may initially get worse after numbing medication wears off... This is normal. It is also normal to feel a throbbing pain or heartbeat/pulse in the affected area after the numbing medication wears off. - Fever >102F - Excessive bleeding - Excessive pus drainage Do not hesitate to call into the office of your surgeon with questions or concerns. -Immobilization Removable forearm splint for comfort -Pain Control: -Pain control: Alternate Tylenol (acetaminophen) and Ibuprofen every 4 hours. For example, take Tylenol at 7am and Ibuprofen at 11am. Then take Tylenol at 3pm and Ibuprofen at 7pm. Take narcotic medicine (oxycodone, hydrocodone, vicodin, norco, percocet, tramadol, etc.) for breakthrough pain only. Make sure to double check that narcotic pain medicine does not also contain acetaminophen as exceeding greater than 3000mg a day is unsafe. -[id number]} -Medications: -See medication instructions. Please be sure to read and understand the information provided by your pharmacy. Ask your Pharmacist if you have any questions. -Precautions: call your doctor or return to the emergency department IF: -You develop signs of worsening infection including but not limited to: increasing pain, redness, swelling, purulent drainage, and/or a fever -You develop excessive bleeding from your incision -Anesthesia Precautions: -Do Not operate any vehicle (automobile, bicycle, motorcycle) or power tools for 24 hours. Do Not drink alcoholic beverages for 24 hours. As precaution to prevent post-operative nausea and vomiting, start your diet with liquids, then progress to light foods. If tolerated, resume normal diet. -Follow up visit: -Follow-up in clinic with Dr. Olvera for a visit 1 week after the date of your surgery. The office contact information is provided in your paperwork. documented in this encounter [facility] 09-11-2023 Note Patient: Christian Danielson Procedure Summary Date: 09/11/23 Room / Location: [address] [facility] [address] Operating Room Anesthesia Start: 1655 Anesthesia Stop: 1751 Procedure: INCISION AND DRAINAGE OF TENDON SHEATH DIGIT AND OR PALM (Right: Hand) Diagnosis: Tenosynovitis Surgeons: Aleja Olvera MD Responsible Provider: Anne Marie Monroe MD Anesthesia Type: general ASA Status: 1 Anesthesia Type: general Vitals Value Taken Time BP 123/70 09/11/23 1745 Temp 97.2 09/11/23 1753 Pulse 89 09/11/23 1751 Resp 12 09/11/23 1753 SpO2 100 % 09/11/23 175 Vitals shown include unfiled device data. Anesthesia Post Evaluation Patient location during evaluation: PACU Patient participation: complete - patient participated Level of consciousness: awake and alert Pain management: satisfactory to patient Airway patency: patent Dental Injury: no Cardiovascular status: acceptable, blood pressure returned to baseline and hemodynamically stable Respiratory status: acceptable and spontaneous ventilation Hydration status: euvolemic Nausea/Vomiting: controlled No notable events documented. Patient can be discharged once all PACU criteria has been met. [facility] 09-11-2023 Note Patient: Christian Danielson Procedure Summary Date: 09/11/23 Room / Location: [address] Operating Room Anesthesia Start: 1655 Anesthesia Stop: 1751 Procedure: INCISION AND DRAINAGE OF TENDON SHEATH DIGIT AND OR PALM (Right: Hand) Diagnosis: Tenosynovitis Surgeons: Aleja Olvera MD Responsible Provider: Anne Marie Monroe MD Anesthesia Type: general ASA Status: 1 Anesthesia Type: general Vitals Value Taken Time BP 123/70 09/11/23 1745 Temp 97.2 09/11/23 1752 Pulse 89 09/11/23 1751 Resp 12 09/11/23 1752 SpO2 100 % 09/11/23 1751 Vitals shown include unfiled device data. Anesthesia Post Evaluation Patient location during evaluation: PACU Patient participation: complete - patient participated Level of consciousness: awake and alert Pain management: satisfactory to patient Multimodal analgesia pain management approach Airway patency: patent Two or more strategies used to mitigate risk of obstructive sleep apnea Cardiovascular status: acceptable and hemodynamically stable Respiratory status: acceptable Hydration status: acceptable No notable events documented. MIPS #430 PONV Patient received an inhalational anesthetic (4554F) Patient does not exhibit three or more risk factors for PONV (X0430)) MIPS # 424 Perioperative Temperature Management Anesthesia time was less than 60 minutes (4256F) MIPS #477 Multimodal Pain Management Not emergent case Patient was administered multimodal pain management (two or more drugs and/or interventions excluding systemic opioids) in the periopeartive period occurring at some time between 6 hours prior to anesthesia start time until discharged from PACU (G2148) MIPS #404 Anesthesiology Smoking Abstinence The patient is not a current smoker (e.g. cigarette, cigar, pipe, e-cigarette/vaping/marijuana) If no stop here (XX404) I completed my handoff to the receiving clinician during which we: 1. Identified the patient 2. Identified the responsible provider 3. Reviewed the pertinent medical history 4. Discussed the surgical course 5. Reviewed intra-op anesthesia management and issues during anesthesia 6. Set expectations for post-procedure period 7. Allowed opportunity for questions and acknowledgement of understanding. [facility] 09-11-2023 Note Airway Date/Time: 09/11/2023 5:02 PM Urgency: scheduled Airway not difficult General Information and Staff Patient location during procedure: Procedural Resident/WALL STEAMER: Jerrod Archer APRN - WALL STEAMER Performed: WALL STEAMER Indications and Patient Condition Indications for airway management: anesthesia Sedation level: Asleep Preoxygenated: yes Patient position: sniffing Mask difficulty assessment: 1 - vent by mask Final Airway Details Final airway type: supraglottic airway Successful airway: Igel Size 5 Number of attempts at approach: 1 [facility] 09-11-2023 Note Formatting of this n ote might be different from the original. OPERATIVE REPORT Patient: Date of : Location: [facility] Date of Service: Preoperative Diagnoses: Right index finger Flexor Tendon Sheath Infection - Suppurative Flexor Tenosynovitis Postoperative Diagnoses: Same Procedures: Incision & Drainage with Irrigation and Debridement of Right index finger Flexor Tendon Sheath Infection - Suppurative Flexor Tenosynovitis Surgeon: ALEJA OLVERA MD Coal Sample Tester: Virginia BAY PGY4 Anesthesia: MAC and Local Blood Loss: Minimal Complications: None Indications: 23-year-old male with Right index finger Flexor Tendon Sheath Infection. I have discussed preoperatively with her the complications, limitations, expectations, alternatives and risk of the planned surgical care which she understood & all of her questions were answered. The patient has provided written informed consent to proceed. After written consent was obtained and the proper operative sites were identified and marked, the patient was brought to the operating room and placed in the supine position on the operating room table with the Right arm extended upon a hand table. MAC anesthesia was induced & the Right upper extremity was prepped and draped in the usual sterile fashion. Procedure: After Esmarch exsanguination, the pneuomo-tourniquet was inflated to 250 millimeters of Mercury about the arm. A longitudinal incision was fashioned at the pulp tip of the finger to gain access to the distal end of the flexor sheath. Gross purulence was immediately encountered which was cultured. Blunt dissection revealed that the purulence tracked directly into the flexor tendon sheath. This sheath was accessed proximally for irrigation. Next, a transverse incision over the proximal aspect of the flexor tendon sheath. Dissection was carried carefully through the soft tissues, carefully protecting the radial and ulnar neurovascular bundles throughout the procedure. The soft tissues, surrounding the A-1 wesley, were cleared, and a longitudinal incision was made, fully releasing the A-1 wesley longitudinally under direct visualization. A whistle-tip catheter was advanced from proximal to distal along the length of the flexor sheath to allow for [id number]-[id number]-jgtdhob irrigation. With the irrigation catheter properly positioned, the sheath was irrigated with 500 ml of sterile saline until there was no visible evidence of residual infection. The catheter was removed and the wounds were further irrigated until clean. The incisions were all irrigated copiously with sterile saline for irrigation. The tourniquet was deflated and the fingers were immediately pink and well perfused. Hemostasis was easily obtained with direct pressure and electrocautery. The wounds were packed open and not closed with suture. The wounds were dressed thoroughly after local anesthetic was instilled for postoperative analgesia. The patient was placed in a well padded resting splint. The patient was awakened from anesthesia having tolerated the procedure without apparent complication. He was returned to the recovery room in stable condition. At the conclusion of the procedure, all needle, instrument and sponge counts were correct. [facility] 09-11-2023 Note Formatting of this n ote is different from the original. Date: 09/11/2023 Location: [facility] OR Name: Christian Danielson, : 2000, Diagnosis Pre-op Diagnosis * Tenosynovitis [M65.9] Post-op Diagnosis * Tenosynovitis [M65.9] Procedures INCISION AND DRAINAGE OF TENDON SHEATH DIGIT AND OR PALM 86891 - DE DRAINAGE TENDON SHEATH DIGIT&/PALM EACH Surgeons * Aleja Olvera - Primary Procedure Summary Anesthesia: Choice ASA: I Estimated Blood Loss: 0 mL Drains: * None in log * Specimens ID Source Type Tests Collected By Collected At Frozen? Priority Lab ID A Finger, Right Swab FUNGAL CULTURE AEROBIC AND ANAEROBIC CULTURE WITH STAIN Aleja Olvera MD 09/11/23 1710 [id number], [id number], [id number] Description: RIGHT INDEX FINGER Staff: [employer] Supervisor: Juliann Walker RN Scrub Person: Jessica Abernathy Findings: Purulence within flexor tendon sheath Complications: None; patient tolerated the procedure well. Specimens Collected: Order Name Source Comment Collection Info Order Time FUNGAL CULTURE Finger, Right Collected By: Aleja Olvera MD 09/11/2023 5:10 PM AEROBIC AND ANAEROBIC CULTURE WITH STAIN Finger, Right Collected By: Aleja Olvera MD 09/11/2023 5:10 PM Wound Class: Class IV: Dirty Blood Products: None Prophylactic Antibiotics: Procedure appropriate prophylactic antibiotic(s) given within 1 hour of surgical incision (two hours if receiving Vancomycin or flouroquinolone) -Operative plans: No further plans for surgery, but will monitor patient closely -Weight bearing: RLE: WBAT LLE: WBAT RUE: NWB LUE: WBAT -Range of motion parameters: ROM as tolerated -Immobilization: Splint to RUE. Keep clean, dry, and intact. -Will defer decision for or against ID consult to primary medical team -Antibiotics: Continue empiric antibiotics, OR cultures pending -Dressings: Keep dressings on until the follow up office visit. Change as needed for saturation. -Other: Hand soaks TID per order set, pull packing prior to soaking -Diet: no restrictions from ortho standpoint -Labs: No further labs needed from ortho standpoint. -PT/OT -PT recommended outpatient/post discharge?: No formal PT is needed -Medical management, dvt ppx and pain control per primary -DVT ppx recommended?: No DVT ppx is indicated from ortho standpoint -Follow-up with Dr Olvera in 1 weeks -Ortho to follow. [facility] 09-11-2023 Note Formatting of this n ote might be different from the original. OPERATIVE REPORT Patient: Date of : Location: [facility] Date of Service: Preoperative Diagnoses: Right index finger Flexor Tendon Sheath Infection - Suppurative Flexor Tenosynovitis Postoperative Diagnoses: Same Procedures: Incision & Drainage with Irrigation and Debridement of Right index finger Flexor Tendon Sheath Infection - Suppurative Flexor Tenosynovitis Surgeon: ALEJA OLVERA MD Coal Sample Tester: Virginia BAY PGY4 Anesthesia: MAC and Local Blood Loss: Minimal Complications: None Indications: 23-year-old male with Right index finger Flexor Tendon Sheath Infection. I have discussed preoperatively with her the complications, limitations, expectations, alternatives and risk of the planned surgical care which she understood & all of her questions were answered. The patient has provided written informed consent to proceed. After written consent was obtained and the proper operative sites were identified and marked, the patient was brought to the operating room and placed in the supine position on the operating room table with the Right arm extended upon a hand table. MAC anesthesia was induced & the Right upper extremity was prepped and draped in the usual sterile fashion. Procedure: After Esmarch exsanguination, the pneuomo-tourniquet was inflated to 250 millimeters of Mercury about the arm. A longitudinal incision was fashioned at the pulp tip of the finger to gain access to the distal end of the flexor sheath. Gross purulence was immediately encountered which was cultured. Blunt dissection revealed that the purulence tracked directly into the flexor tendon sheath. This sheath was accessed proximally for irrigation. Next, a transverse incision over the proximal aspect of the flexor tendon sheath. Dissection was carried carefully through the soft tissues, carefully protecting the radial and ulnar neurovascular bundles throughout the procedure. The soft tissues, surrounding the A-1 wesley, were cleared, and a longitudinal incision was made, fully releasing the A-1 wesley longitudinally under direct visualization. A whistle-tip catheter was advanced from proximal to distal along the length of the flexor sheath to allow for [id number]-oeo-jmxnnba irrigation. With the irrigation catheter properly positioned, the sheath was irrigated with 500 ml of sterile saline until there was no visible evidence of residual infection. The catheter was removed and the wounds were further irrigated until clean. The incisions were all irrigated copiously with sterile saline for irrigation. The tourniquet was deflated and the fingers were immediately pink and well perfused. Hemostasis was easily obtained with direct pressure and electrocautery. The wounds were packed open and not closed with suture. The wounds were dressed thoroughly after local anesthetic was instilled for postoperative analgesia. The patient was placed in a well padded resting splint. The patient was awakened from anesthesia having tolerated the procedure without apparent complication. He was returned to the recovery room in stable condition. At the conclusion of the procedure, all needle, instrument and sponge counts were correct. [facility] 09-11-2023 Note Formatting of this n ote is different from the original. Date: 09/11/2023 Location: [facility] OR Name: Christian Danielson, : 2000, Diagnosis Pre-op Diagnosis * Tenosynovitis [M65.9] Post-op Diagnosis * Tenosynovitis [M65.9] Procedures INCISION AND DRAINAGE OF TENDON SHEATH DIGIT AND OR PALM 81375 - DE DRAINAGE TENDON SHEATH DIGIT&/PALM EACH Surgeons * Aleja Olvera - Primary Procedure Summary Anesthesia: Choice ASA: I Estimated Blood Loss: 0 mL Drains: * None in log * Specimens ID Source Type Tests Collected By Collected At Frozen? Priority Lab ID A Finger, Right Swab FUNGAL CULTURE AEROBIC AND ANAEROBIC CULTURE WITH STAIN Aleja Olvera MD 09/11/23 1710 [id number], [id number], [id number] Description: RIGHT INDEX FINGER Staff: [employer] Supervisor: Juliann Walker RN Scrub Person: Jessica Abernathy Findings: Purulence within flexor tendon sheath Complications: None; patient tolerated the procedure well. Specimens Collected: Order Name Source Comment Collection Info Order Time FUNGAL CULTURE Finger, Right Collected By: Aleja Olvera MD 09/11/2023 5:10 PM AEROBIC AND ANAEROBIC CULTURE WITH STAIN Finger, Right Collected By: Aleja Olvera MD 09/11/2023 5:10 PM Wound Class: Class IV: Dirty Blood Products: None Prophylactic Antibiotics: Procedure appropriate prophylactic antibiotic(s) given within 1 hour of surgical incision (two hours if receiving Vancomycin or flouroquinolone) -Operative plans: No further plans for surgery, but will monitor patient closely -Weight bearing: RLE: WBAT LLE: WBAT RUE: NWB LUE: WBAT -Range of motion parameters: ROM as tolerated -Immobilization: Splint to RUE. Keep clean, dry, and intact. -Will defer decision for or against ID consult to primary medical team -Antibiotics: Continue empiric antibiotics, OR cultures pending -Dressings: Keep dressings on until the follow up office visit. Change as needed for saturation. -Other: Hand soaks TID per order set, pull packing prior to soaking -Diet: no restrictions from ortho standpoint -Labs: No further labs needed from ortho standpoint. -PT/OT -PT recommended outpatient/post discharge?: No formal PT is needed -Medical management, dvt ppx and pain control per primary -DVT ppx recommended?: No DVT ppx is indicated from ortho standpoint -Follow-up with Dr Olvera in 1 weeks -Ortho to follow. [facility] 09-11-2023 Note Patient: Christian Danielson Procedure Information Date/Time: 09/11/23 1700 Procedure: INCISION AND DRAINAGE OF TENDON SHEATH DIGIT AND OR PALM (Right: Hand) Location: [facility] OR [address] [place] [address] Operating Room Surgeons: Aleja Olvera MD Relevant Problems No relevant active problems Past Medical History: No past medical history on file. Past Surgical History: No past surgical history on file. Social History: TOBACCO: has no history on file for tobacco use. ETOH: has no history on file for alcohol use. Social History Substance and Sexual Activity Drug Use Not on file Family History: No family history on file. Screening: unknown Clinical information reviewed: Allergies Physical Exam Airway Mallampati: II TM distance: >3 FB Neck ROM: full Mouth Open: normal Cardiovascular Dental dentition normal Pulmonary Abdominal Anesthesia Plan patient is NPO appropriate Any family history or previous problems with anesthesia ASA 1 general N/A: pt is adopted (Fam history unknown). The patient is not a current smoker. Anesthetic plan and risks discussed with patient. N/A: pt is adopted (Fam history unknown). BITA Screening Labs: Lab Results Component Value Date WBC 10.3 09/11/2023 HGB 14.7 09/11/2023 HCT 41.8 09/11/2023 MCV 85.7 09/11/2023 PLT 284 09/11/2023 Lab Results Component Value Date NA 136 09/11/2023 K 4.6 09/11/2023 CL 105 09/11/2023 CO2 20 (L) 09/11/2023 BUN 16 09/11/2023 CREATININE 1.12 09/11/2023 GLUCOSE 98 09/11/2023 CALCIUM 9.5 09/11/2023 EGFR >90.0 09/11/2023 Pain Score: 7 No echocardiogram results found for the past 14 days 09/11/23 ECG 12-LEAD (Preliminary) This result has not been signed. Information might be incomplete. Impression Sinus rhythm Short DE interval Probable inferior infarct, [facility] 09-11-2023 Consult note Associated Order (s): IP CONSULT TO ORTHOPAEDIC SURGERY Images from the original note were not included. Ortho H&P/Consult Patient: Christian Danielson Date of : 2000 Acct: [id number] PCP: No primary care provider on file. Date of Admission: 09/11/2023 Date of Service: Pt seen/examined on 09/11/2023 Chief Complaint: Right index finger pain and swelling, progressive History Of Present Illness: This is a 23 y.o. bilateral hand dominant male who presents with a 1 week history of progressive volar index finger pain and swelling. 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 Initially the injury and pain which is contained in this area but progressed proximally up his finger. He was placed on Bactrim and has been on it for 3 or 4 days but the symptoms have continued to progress. Denies any fevers or chills. No other history of severe infections. Initially presented to [facility] and due to concerns for pyogenic flexor tenosynovitis he was transferred to [facility]. He has no other medical problems Patient ambulation status: no difficulty. Antiplatelets/Anticoagulation includes: none. 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 Past Surgical History: No past surgical history on file. Home Medications: Prior to Admission medications Not on File Current Hospital Medications: Current Facility-Administered Medications: ampicillin-sulbactam (Unasyn) 3,000 mg in sodium chloride 0.9 % 100 mL IVPB (Add-Nazareth), 3,000 mg, IntraVENous, Once, Alek Germain MD No current outpatient medications on file. Allergies: Patient has no known allergies. Social History: Social History Socioeconomic History Marital status: Single Spouse name: Not on file Number of children: Not on file Years of education: Not on file Highest education level: Not on file Occupational History Not on file Tobacco Use Smoking status: Not on file Smokeless tobacco: Not on file Substance and Sexual Activity Alcohol use: Not on file Drug use: Not on file Sexual activity: Not on file Other Topics Concern Not on file Social History Narrative Not on file Social Determinants of Health Financial Resource Strain: Not on file Food Insecurity: Not on file Transportation Needs: Not on file Physical Activity: Not on file Stress: Not on file Social Connections: Not on file Intimate Partner Violence: Not on file Housing Stability: Not on file Family History: No family history on file. Further Family History is noncontributory to this injury. REVIEW OF SYSTEMS: Review of Systems - General ROS: negative for - chills, fatigue, fever, malaise or night sweats Psychological ROS: negative Ophthalmic ROS: negative ENT ROS: negative for - headaches or sore throat Hematological and Lymphatic ROS: negative for - bleeding problems or blood clots Respiratory ROS: no cough, shortness of breath, or wheezing Cardiovascular ROS: no chest pain or dyspnea on exertion Gastrointestinal ROS: negative Musculoskeletal ROS: See HPI Neurological ROS: negative for - bowel and bladder control changes, gait disturbance or numbness/tingling All other systems reviewed and are negative PHYSICAL EXAM: BP 135/84 Pulse 68 Temp 36.2 C (97.2 F) (Temporal) Resp 16 SpO2 99% GENERAL APPEARANCE: Awake and oriented x3. No acute distress, except appropriate to injury. MOOD AND AFFECT: Calm appropriate to situation GAIT AND STATION: Patient is in bed and able to ambulate REFLEXES: No clonus or Babinski. COORDINATION and BALANCE: Patient is grossly coordinated Lymphadenopathy: none on examination of the affected extremity(s) Right Upper Extremity: Examination of the right hand reveals significant swelling of the index finger held in a flexed posture. Mild erythema. There is a lesion at the distal tip of the index finger concerning for a felon. There is exquisite tenderness palpation along the path of the flexor tendon down to the level of the A1 wesley. There is exquisite tenderness to any passive extension. Sensation is intact distally. The tip of the finger is well-perfused. There is no tenderness palpation in the distal palm and proximal. All of the other remaining digits are benign. Labs: CBC: No results found for: WBC, RBC, HEMOGLOBIN BMP:No results found for: GLUCOSE, SODIUM, POTASSIUM, CHLORIDE, CO2, BUN, CREATININE, CALCIUM PT/INR: No results found for: PT, INR, APTT Type and Screen: No results found for: RH, LABANTI CRP: No results found for: CRP ESR: No results found for: SEDRATE HgBA1c: No components found for: LABA1C The above labs were reviewed by me. Radiology: The below imaging was independently reviewed and interpreted XR: Right hand: No acute fracture or dislocation. Skeletally mature. Soft tissue swelling of the index finger. No evidence of osteomyelitis. Radiology report reviewed. ASSESSMENT: 23 y.o. male with clinical concern for right index finger pyogenic flexor tenosynovitis PLAN: -D/W Dr. Olvera -Plan for OR this evening for right index finger I&D -NPO -Clearance/optimization per anesthesia -Consented for above procedure -Preoperative complete -Ice -Recommend medical admission postoperatively -Pain control and medical management per medicine Donnie Swan MD Orthopaedic Surgery, PGY4 [facility] [phone] [facility] 09-11-2023 Emergency department Note EMERGENCY DEPARTMENT ENCOUNTER Pt Name: Christian Danielson Birthdate 2000 Date of evaluation: 09/11/2023 ED Provider: Alek Germain MD CHIEF COMPLAINT Chief Complaint Patient presents with Hand Pain Patient sent by [facility] to be seen by hand specialist. States he woke up with an infection/swelling/pain to the R index finger on Wednesday. Patient is a/o x 4. GCS 15. HISTORY OF PRESENT ILLNESS (Location/Symptom, Timing/Onset, Context/Setting, Quality, Duration, Modifying Factors, Severity) Note limiting factors. I wore appropriate PPE for the entirety of this encounter. HPI Christian Danielson is a 23 y.o. who presents to the emergency department with right index finger cellulitis and tenosynovitis Patient has no history of diabetes no history of HIV, takes no medications daily. Has never had any orthopedic surgery previously. Does not smoke does not use illicit drugs. No family history of orthopedic issues or hand issues specifically. Patient says that starting last Wednesday he started having right index finger cellulitis he is not sure exactly how it began. He has been in and out of urgent care offices, and they placed him on Bactrim antibiotics. At 1 point he actually had a incision at the base of the nailbed/proximal end of the nailbed to drain what they thought was a paronychia but this did not have any effect. He kept taking the Bactrim and the cellulitis got bigger and bigger, gradually moving proximally into his DIP then his PIP then his MCP. He now cannot extend the right index finger at all, and has reduced flexion in the right index finger at the MCP PIP and DIP joints. No numbness or paresthesias, he still has intact sensation, and digits 1, 3, 4, 5 are not involved. The cellulitis in the right index finger does not extend into the right hand itself or into the right wrist. No fevers no chills. He was seen at the [facility] urgent care earlier today who felt that he would require a trip to the operating room for washout by hand surgery and they sent him to the emergency department here in [facility] ED to see hand surgery, ideally [facility]. No chest pain no palpitations no shortness of breath no abdominal pain. Nursing Notes were reviewed. Limitations to history: None Outside historians: Sending clinician from [facility] urgent care REVIEW OF SYSTEMS Review of Systems Pertinent positives and negatives as per [facility] PAST MEDICAL HISTORY History reviewed. No pertinent past medical history. SURGICAL HISTORY Past Surgical History: Procedure Laterality Date I&D ABSCESS-SIMPLE (HISTORICAL) Right 09/11/2023 INDEX FINGER CURRENT MEDICATIONS There are no discharge medications for this patient. ALLERGIES Patient has no known allergies. FAMILY HISTORY No family history on file. SOCIAL HISTORY Social History Socioeconomic History Marital status: Single PHYSICAL EXAM ED Triage Vitals [09/11/23 1207] Temp Heart Rate Resp BP 36.2 C (97.2 F) 68 16 135/84 SpO2 Temp Source Heart Rate Source Patient Position 99 % Temporal Monitor -- BP Location FiO2 (%) -- -- Physical Exam General: WDWN adult in NAD. Non-toxic appearing HENT: Head NCAT, EOMI with no erythema, swelling or discharge. Oropharyngeal mucus membranes moist, pink, no exudate Neck: Full ROM, supple, no rigidity Cardio: RRR, nl s1 s2 no m/r/g, extremities warm, dry, well perfused, non-edematous, 2+ right radial pulse, less than 2-second capillary refill in digits 1, 3, 4, 5 on the right hand. Is difficult to evaluate capillary refill in right hand digit #2 because there is an area of fluctuance at the distal tip of the phalanx so it is discolored Lungs: CTAB, no wheezes, rales, rhonchi, normal work of breathing Abdomen: Soft, NT, ND, non-rigid, BS x 4 normal MSK: Right wrist nontender to palpation, nonerythematous. Full range of flexion extension abduction abduction right wrist without pain The metacarpals are entirely nontender to palpation in all digits Right hand index finger is essentially frozen in position. It is erythematous from the tip of the distal phalanx to the MCP joint and appears to be cellulitic. Patient can flex about 45 degrees at the MCP joint but 0 degrees of flexion at the PIP joint and only 10 degrees of flexion at the DIP joint. Patient cannot extend at all at any of the MCP PIP and DIP joints on the right hand index finger, he is stuck in flexion Skin: Right hand index finger hot to the touch, dry, erythematous. No active purulent or bloody drainage, dry, erythematous Neuro: Alert, oriented, mentating normally Intact sensation all the way to the tip of the right index finger. Strength in right index finger is limited by pain DIAGNOSTIC RESULTS RADIOLOGY (Per Emergency Physician): Interpretation per the Radiologist below, if available at the time of this note: XR chest 1 view Final Result FINDINGS/IMPRESSION: 1. Lines/Tubes/Devices/Hardware: None. 2. Lungs: No consolidation or pulmonary edema. 3. Pleura: No pneumothorax or large pleural effusions. 4. Heart and mediastinum: Normal cardiomediastinal contours. Report Dictated on Electronically Signed By: Arthur Sheridan MD Electronically Signed Date/Time: 09/11/2023 2:06 PM EDT XR hand 3+ views right Final Result No acute osseous process. Report Dictated on Electronically Signed By: Carol Ann Teague MD Electronically Signed Date/Time: 09/11/2023 1:40 PM EDT LABS: Labs Reviewed CBC WITH AUTO DIFFERENTIAL - Abnormal Result Value Auto WBC 10.3 RBC 4.88 Hemoglobin 14.7 Hematocrit 41.8 MCV 85.7 MCH 30.1 MCHC 35.2 RDW 13.2 Platelets 284 MPV 11.3 nRBC 0.0 Neutrophils Relative 67.8 Lymphocytes Relative 18.2 Monocytes Relative 11.8 Eosinophils Relative 1.3 Basophils Relative 0.6 Immature Grans % 0.3 Neutrophils Absolute 7.0 Lymphocytes Absolute 1.9 Monocytes Absolute 1.2 (*) Eosinophils Absolute 0.1 Basophils Absolute 0.1 Immature Grans Absolute 0.0 BASIC METABOLIC PANEL - Abnormal SODIUM 136 POTASSIUM 4.6 CHLORIDE 105 CARBON DIOXIDE 20 (*) UREA NITROGEN 16 CREATININE 1.12 GLUCOSE 98 CALCIUM 9.5 ANION GAP 10 eGFR >90.0 C-REACTIVE PROTEIN - Abnormal C REACTIVE PROTEIN 10.5 (*) SEDIMENTATION RATE, AUTOMATED - Normal Sed Rate 7 PROTHROMBIN TIME - Normal PROTHROMBIN TIME 11.3 INR 1.0 FUNGAL CULTURE AEROBIC AND ANAEROBIC CULTURE WITH STAIN Narrative: The following orders were created for panel order Aerobic and Anaerobic Culture with Stain. Procedure Abnormality Status --------- ------ Culture, Aerobic Bacteria...[[id number]] Anaerobic culture[[id number]] Please view results for these tests on the individual orders. CULTURE, AEROBIC BACTERIA WITH GRAM STAIN CULTURE ANAEROBIC BLOOD TYPE AND SCREEN GEL ABO Grouping A Antibody Screen NEG Rh Type NEG CONFIRMATORY ABO/RH ABO Grouping A Rh Type NEG All other labs were within normal range or not returned as of this dictation. EMERGENCY DEPARTMENT COURSE and DIFFERENTIAL DIAGNOSIS/MDM: Vitals: Vitals: 09/11/23 1800 09/11/23 1815 09/11/23 1830 09/11/23 1845 BP: (!) 138/90 (!) 144/98 (!) 140/90 (!) 145/91 BP Location: Patient Position: Pulse: 95 98 82 68 Resp: 16 18 20 18 Temp: TempSrc: SpO2: 100% 100% 97% 98% Medications ampicillin-sulbactam (Unasyn) 3,000 mg in sodium chloride 0.9 % 100 mL IVPB (Add-Nazareth) ( IntraVENous Dose Auto Held 09/15/23 1900) sodium chloride 0.9 % bolus 500 mL (has no administration in time range) lactated ringers infusion (has no administration in time range) sodium chloride 0.9% (NS) flush 10 mL (has no administration in time range) sodium chloride 0.9% (NS) flush 10 mL (has no administration in time range) sodium chloride 0.9 % infusion (has no administration in time range) HYDROmorphone (Dilaudid) injection 0.25 mg (has no administration in time range) HYDROmorphone (Dilaudid) injection 0.5 mg (0.5 mg IntraVENous Given 09/11/23 1813) oxyCODONE (Roxicodone) immediate release tablet 5 mg (has no administration in time range) Or oxyCODONE (Roxicodone) immediate release tablet 10 mg (has no administration in time range) ondansetron (Zofran) injection 4 mg (has no administration in time range) LORazepam (Ativan) injection 0.5 mg (has no administration in time range) diphenhydrAMINE (BENADryl) injection 12.5 mg (has no administration in time range) labetalol (Normodyne,Trandate) injection 5 mg (has no administration in time range) Or hydrALAZINE (Apresoline) injection 5 mg (has no administration in time range) ampicillin-sulbactam (Unasyn) 3,000 mg in sodium chloride 0.9 % 100 mL IVPB (Add-Nazareth) (0 mg IntraVENous Stopped 09/11/23 1438) fentaNYL (Sublimaze) injection 50 mcg (50 mcg IntraVENous Given 09/11/23 1337) morphine injection 4 mg (4 mg IntraVENous Given 09/11/23 1451) ondansetron (Zofran) injection 4 mg (4 mg IntraVENous Given 09/11/23 1450) SCREENINGS 23-year-old male presents with progressive right index finger cellulitis. Has significantly reduced range of flexion at the MCP PIP and DIP joints and no extension at all in the right index finger MDM elements: The patient presented with chief complaint of see above. The differential diagnosis associated with this patient's presentation includes patient appears to have a flexor tenosynovitis and also limited extension as well. His right index finger is cellulitic and I am concerned that it is extending proximally toward his MCP joint.. Our workup consisted of ordering/reviewing: Orthopedic surgery consult, IV Unasyn, CBC, ESR CRP, pain control, either orthopedic surgery will take patient to operating room for operative washout, or open his hand at bedside and wash the tendons out in the ED. To aid in management, I performed an independent interpretation of Xray(s) See below Blood work, see below. I also reviewed external records from transfer paperwork from [facility] orthopedic urgent care. I discussed their care with Web User Experience Strategist Orthopedic surgery. The patient will be disposition per orthopedic surgery. Patient is in agreement with this plan. Patient's care was impacted by outpatient treatment failure. PROCEDURES: Unless otherwise noted below, none Procedures Patient surgery consulted Orthopedic surgery will come see patient Orthopedic surgery at bedside Metabolic panel shows mild metabolic acidosis, good kidney function, glucose within normal limits Sodium potassium calcium all normal Normal white blood cell count Mild anemia Normal platelet count ESR negative, CRP elevated at 7 and 10.5 respectively Preoperative chest x-ray shows no consolidation or pulmonary edema. No pneumothorax or large pleural effusions. Interpreted by me. X-ray right hand shows bone mineralization is normal, joint spaces are maintained, there is no acute fracture. No acute osseous process. Interpreted by me. After evaluating the patient, orthopedic surgery has decided that he will require a trip to the operating room for an operative washout. Patient remains hemodynamically stable in the emergency department is not septic. Orthopedic surgery is requesting that the ED consult the AR team and ask them to admit the patient medically for additional IV antibiotics after the trip to the operating room with orthopedics tonight is complete. AR consulted and will come to see patient. Orthopedics moving forward with their plan to take patient to operating room. See their note for further details. Disposition: To operating room with orthopedic surgery. Patient will be admitted to admitting resident/AR service CRITICAL CARE TIME FINAL IMPRESSION 1. Tenosynovitis 2. Cellulitis of right index finger 3. Failure of outpatient treatment DISPOSITION Admit 09/11/2023 04:49:52 PM PATIENT REFERRED TO: Aleja Olvera MD [address] [facility] [id number] Schedule an appointment as soon as possible for a visit in 1 week(s) For wound re-check DISCHARGE MEDICATIONS: There are no discharge medications for this patient. (Comment: Please note this report has been produced using speech recognition software and may contain errors related to that system including errors in grammar, punctuation, and spelling, as well as words and phrases that may be inappropriate. If there are any questions or concerns please feel free to contact the dictating provider for clarification.) Alek Germain MD (electronically signed) Emergency Medicine Provider Alek Germain MD 09/11/23 190 documented in this encounter [facility] 09-11-2023 Physician Emergency department Note EMERGENCY DEPARTMENT ENCOUNTER Pt Name: Christian Danielson Birthdate 2000 Date of evaluation: 09/11/2023 ED Provider: Alek Germain MD CHIEF COMPLAINT Chief Complaint Patient presents with Hand Pain Patient sent by [facility] to be seen by hand specialist. States he woke up with an infection/swelling/pain to the R index finger on Wednesday. Patient is a/o x 4. GCS 15. HISTORY OF PRESENT ILLNESS (Location/Symptom, Timing/Onset, Context/Setting, Quality, Duration, Modifying Factors, Severity) Note limiting factors. I wore appropriate PPE for the entirety of this encounter. HPI Christian Danielson is a 23 y.o. who presents to the emergency department with right index finger cellulitis and tenosynovitis Patient has no history of diabetes no history of HIV, takes no medications daily. Has never had any orthopedic surgery previously. Does not smoke does not use illicit drugs. No family history of orthopedic issues or hand issues specifically. Patient says that starting last Wednesday he started having right index finger cellulitis he is not sure exactly how it began. He has been in and out of urgent care offices, and they placed him on Bactrim antibiotics. At 1 point he actually had a incision at the base of the nailbed/proximal end of the nailbed to drain what they thought was a paronychia but this did not have any effect. He kept taking the Bactrim and the cellulitis got bigger and bigger, gradually moving proximally into his DIP then his PIP then his MCP. He now cannot extend the right index finger at all, and has reduced flexion in the right index finger at the MCP PIP and DIP joints. No numbness or paresthesias, he still has intact sensation, and digits 1, 3, 4, 5 are not involved. The cellulitis in the right index finger does not extend into the right hand itself or into the right wrist. No fevers no chills. He was seen at the [facility] urgent care earlier today who felt that he would require a trip to the operating room for washout by hand surgery and they sent him to the emergency department here in [facility] ED to see hand surgery, ideally [facility]. No chest pain no palpitations no shortness of breath no abdominal pain. Nursing Notes were reviewed. Limitations to history: None Outside historians: Sending clinician from [facility] urgent care REVIEW OF SYSTEMS Review of Systems Pertinent positives and negatives as per HPI PAST MEDICAL HISTORY History reviewed. No pertinent past medical history. SURGICAL HISTORY Past Surgical History: Procedure Laterality Date I&D ABSCESS-SIMPLE (HISTORICAL) Right 09/11/2023 INDEX FINGER CURRENT MEDICATIONS There are no discharge medications for this patient. ALLERGIES Patient has no known allergies. FAMILY HISTORY No family history on file. SOCIAL HISTORY Social History Socioeconomic History Marital status: Single PHYSICAL EXAM ED Triage Vitals [09/11/23 1207] Temp Heart Rate Resp BP 36.2 C (97.2 F) 68 16 135/84 SpO2 Temp Source Heart Rate Source Patient Position 99 % Temporal Monitor -- BP Location FiO2 (%) -- -- Physical Exam General: WDWN adult in NAD. Non-toxic appearing HENT: Head NCAT, EOMI with no erythema, swelling or discharge. Oropharyngeal mucus membranes moist, pink, no exudate Neck: Full ROM, supple, no rigidity Cardio: RRR, nl s1 s2 no m/r/g, extremities warm, dry, well perfused, non-edematous, 2+ right radial pulse, less than 2-second capillary refill in digits 1, 3, 4, 5 on the right hand. Is difficult to evaluate capillary refill in right hand digit #2 because there is an area of fluctuance at the distal tip of the phalanx so it is discolored Lungs: CTAB, no wheezes, rales, rhonchi, normal work of breathing Abdomen: Soft, NT, ND, non-rigid, BS x 4 normal MSK: Right wrist nontender to palpation, nonerythematous. Full range of flexion extension abduction abduction right wrist without pain The metacarpals are entirely nontender to palpation in all digits Right hand index finger is essentially frozen in position. It is erythematous from the tip of the distal phalanx to the MCP joint and appears to be cellulitic. Patient can flex about 45 degrees at the MCP joint but 0 degrees of flexion at the PIP joint and only 10 degrees of flexion at the DIP joint. Patient cannot extend at all at any of the MCP PIP and DIP joints on the right hand index finger, he is stuck in flexion Skin: Right hand index finger hot to the touch, dry, erythematous. No active purulent or bloody drainage, dry, erythematous Neuro: Alert, oriented, mentating normally Intact sensation all the way to the tip of the right index finger. Strength in right index finger is limited by pain DIAGNOSTIC RESULTS RADIOLOGY (Per Emergency Physician): Interpretation per the Radiologist below, if available at the time of this note: XR chest 1 view Final Result FINDINGS/IMPRESSION: 1. Lines/Tubes/Devices/Hardware: None. 2. Lungs: No consolidation or pulmonary edema. 3. Pleura: No pneumothorax or large pleural effusions. 4. Heart and mediastinum: Normal cardiomediastinal contours. Report Dictated on Electronically Signed By: Arthur Sheridan MD Electronically Signed Date/Time: 09/11/2023 2:06 PM EDT XR hand 3+ views right Final Result No acute osseous process. Report Dictated on Electronically Signed By: Carol Ann Teague MD Electronically Signed Date/Time: 09/11/2023 1:40 PM EDT LABS: Labs Reviewed CBC WITH AUTO DIFFERENTIAL - Abnormal Result Value Auto WBC 10.3 RBC 4.88 Hemoglobin 14.7 Hematocrit 41.8 MCV 85.7 MCH 30.1 MCHC 35.2 RDW 13.2 Platelets 284 MPV 11.3 nRBC 0.0 Neutrophils Relative 67.8 Lymphocytes Relative 18.2 Monocytes Relative 11.8 Eosinophils Relative 1.3 Basophils Relative 0.6 Immature Grans % 0.3 Neutrophils Absolute 7.0 Lymphocytes Absolute 1.9 Monocytes Absolute 1.2 (*) Eosinophils Absolute 0.1 Basophils Absolute 0.1 Immature Grans Absolute 0.0 BASIC METABOLIC PANEL - Abnormal SODIUM 136 POTASSIUM 4.6 CHLORIDE 105 CARBON DIOXIDE 20 (*) UREA NITROGEN 16 CREATININE 1.12 GLUCOSE 98 CALCIUM 9.5 ANION GAP 10 eGFR >90.0 C-REACTIVE PROTEIN - Abnormal C REACTIVE PROTEIN 10.5 (*) SEDIMENTATION RATE, AUTOMATED - Normal Sed Rate 7 PROTHROMBIN TIME - Normal PROTHROMBIN TIME 11.3 INR 1.0 FUNGAL CULTURE AEROBIC AND ANAEROBIC CULTURE WITH STAIN Narrative: The following orders were created for panel order Aerobic and Anaerobic Culture with Stain. Procedure Abnormality Status --------- ------ Culture, Aerobic Bacteria...[[id number]] Anaerobic culture[[id number]] Please view results for these tests on the individual orders. CULTURE, AEROBIC BACTERIA WITH GRAM STAIN CULTURE ANAEROBIC BLOOD TYPE AND SCREEN GEL ABO Grouping A Antibody Screen NEG Rh Type NEG CONFIRMATORY ABO/RH ABO Grouping A Rh Type NEG All other labs were within normal range or not returned as of this dictation. EMERGENCY DEPARTMENT COURSE and DIFFERENTIAL DIAGNOSIS/MDM: Vitals: Vitals: 09/11/23 1800 09/11/23 1815 09/11/23 1830 09/11/23 1845 BP: (!) 138/90 (!) 144/98 (!) 140/90 (!) 145/91 BP Location: Patient Position: Pulse: 95 98 82 68 Resp: 16 18 20 18 Temp: TempSrc: SpO2: 100% 100% 97% 98% Medications ampicillin-sulbactam (Unasyn) 3,000 mg in sodium chloride 0.9 % 100 mL IVPB (Add-Nazareth) ( IntraVENous Dose Auto Held 09/15/23 1900) sodium chloride 0.9 % bolus 500 mL (has no administration in time range) lactated ringers infusion (has no administration in time range) sodium chloride 0.9% (NS) flush 10 mL (has no administration in time range) sodium chloride 0.9% (NS) flush 10 mL (has no administration in time range) sodium chloride 0.9 % infusion (has no administration in time range) HYDROmorphone (Dilaudid) injection 0.25 mg (has no administration in time range) HYDROmorphone (Dilaudid) injection 0.5 mg (0.5 mg IntraVENous Given 09/11/23 181) oxyCODONE (Roxicodone) immediate release tablet 5 mg (has no administration in time range) Or oxyCODONE (Roxicodone) immediate release tablet 10 mg (has no administration in time range) ondansetron (Zofran) injection 4 mg (has no administration in time range) LORazepam (Ativan) injection 0.5 mg (has no administration in time range) diphenhydrAMINE (BENADryl) injection 12.5 mg (has no administration in time range) labetalol (Normodyne,Trandate) injection 5 mg (has no administration in time range) Or hydrALAZINE (Apresoline) injection 5 mg (has no administration in time range) ampicillin-sulbactam (Unasyn) 3,000 mg in sodium chloride 0.9 % 100 mL IVPB (Add-Nazareth) (0 mg IntraVENous Stopped 09/11/23 1438) fentaNYL (Sublimaze) injection 50 mcg (50 mcg IntraVENous Given 09/11/23 1337) morphine injection 4 mg (4 mg IntraVENous Given 09/11/23 1451) ondansetron (Zofran) injection 4 mg (4 mg IntraVENous Given 09/11/23 1450) SCREENINGS 23-year-old male presents with progressive right index finger cellulitis. Has significantly reduced range of flexion at the MCP PIP and DIP joints and no extension at all in the right index finger MDM elements: The patient presented with chief complaint of see above. The differential diagnosis associated with this patient's presentation includes patient appears to have a flexor tenosynovitis and also limited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 illness Narrative Patient came in because of significant increase pain, numbness and tingling from the splint. surgical scrub technician applied new splint. Patient states he has a follow up in 5-7 days.Sarah Miller documented in this encounter [facility] 10-15-2021 Miscellaneous Notes Spoke with Christian's parents who reached out regarding emotional lability, outbursts of anger, passive suicidality, self harm behavior (cutting). This was at its worst late last week, seems to have settled down past few days. Triggered by current legal problem he is having to deal with. Tendency towards depressive symptoms in past, but not to this degree. Gave resources for [place] [facility] and psychiatric emergency services. He is already scheduled with counseling. Reviewed options for psychiatry or is welcome to see me to discuss options. All questions answered. Jose Miguel Davison MD documented in this encounter [facility] 10-15-2021 Instructions Ana Durham DO - 10/15/2021 2:07 PM EDT Intermittent Ice few times a day for 3-5 days but keep splint dry and clean If no SE or contraindications consider Nsaids for 3-5 days such as over the counter Advil (Ibuprofen) 200mg tabs 2-3 tabs up to 600mg 3 times a day with meals or aleve (naprosyn) 1-2 tabs up to 500mg twice daily with meals, and tylenol (acetominphen) for pain if needed 500-1000mg per dose up to 3 doses or total 3000mg per day Intermittent Gentle Range of Motion as directed Remain in splint until follow-up unless any signs of nerve or vascular/blood vessel blockage in the fingers--numb or cold fingers, acute significantly increased pain, significant decreased ROM, numbness or tingling or focal weakness are present recommended seeking immediate evaluation at ER. 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-- stiffness and pain with decreased flexion 5th fingers manuel at the MCP and PIP more than DIP Has tried OTC thumb spica brace without improvement, hot tub and ice ambidextrous Hx of boxers fracture 2-3 years ago cast and PT but no surgery (in [place]) Also hx minor injuries after punching things along rest of the 2-4th MCPs but no other fractures Discussed reasons for aggression and punching hard objects-patient described difficulty with stress, but denied any other thoughts or intention of self-harm, he denied being at risk of harm from others-he states he feels safe and his situation is improving and under control Offered to assist with coordination of care through primary care or emergency room if additional evaluation was necessary at any time-patient stated he was aware of how to seek help if needed but declined the need for any help at this time PAST MEDICAL HISTORY Diagnosis Date Concussion x2 Convergence insufficiency GERD (gastroesophageal reflux disease) H. pylori infection Insomnia PAST SURGICAL HISTORY Procedure Laterality Date TONSILLECTOMY HX Social History Tobacco Use Smoking status: Never Smoker Smokeless tobacco: Never Used Vaping Use Vaping Use: Former Substances: Nicotine Devices: Disposable Substance Use Topics Alcohol use: Not Currently Drug use: Not Currently Types: Marijuana Comment: stopped 04/24/21 Current Outpatient Medications Medication Sig mirtazapine (REMERON) 15 mg tablet TAKE 1 TABLET BY MOUTH DAILY AT BEDTIME ondansetron orally disintegrating (ZOFRAN ODT) 4 mg disintegrating tablet Take 1 tablet by mouth every 8 hours as needed for nausea/vomiting. dicyclomine (BENTYL) 20 mg tablet Take 1 tablet by mouth before meals and at bedtime. No current facility-administered medications for this visit. ALLERGIES No Known Allergies Resp 18 Ht 6' 2 (1.88m) Wt 156 lb (70.8kg) BMI 20.02 kg/(m^2). ROS: I have reviewed and agree with the ROS performed and documented within this office visit EXAM: General: Alert and oriented 3 in no apparent distress. Gait: Normal gait without assistance Head: Normocephalic and atraumatic Psyche: Normal affect, good insight and eye contact, no irritability or inappropriate behavior Skin: Skin condition is healthy without rashes or erythema. Cadiovascular: Normal palpable distal pulses without focal edema or swelling Neck: Supple Pulmonary: Non labored breathing and no pursed lips. There is no evidence of cyanosis. Neuro: There are no focal neurologic deficits--normal gross sensory function Right Hand exam: Mild guarding right hand--decreased ROM and stiffness with flexion and mild rotational malalignment--with distal 5th finger crossing under distal 4th finger. Mild guarding and moderate pain with palpation along mid to distal 5th metacarpal and mild discomfort along 4th metacarpal with dorsal aspect of the 5th MCP depressed compared to 2-4th MCPs. 5th MCP but no obvious palpable deformity. Increased discomfort but no significant focal weakness ASSESSMENT: (M79.641) Right hand pain (primary encounter diagnosis) (S69.91XA) Hand injuries, right, initial encounter PLAN: Reviewed and interpreted imaging formed in the office today including possible acute on chronic changes of the fifth metacarpal shaft suspicious for new/acute fracture. Recommended support and immobilization in an ulnar gutter splint until additional evaluation with Ortho hand available over the next 5 to 7 days. Recommend continuing elevation, ice while keeping the splint clean and dry and in place until additional evaluation. Aware of the signs of potential neurovascular compromise while immobilized over the next few days-and taught how to monitor neurovascular status. Declined need for any restrictions and/or time off work at this point. Recommend seeking immediate evaluation if any red flags present including but not limited to acute significantly increased pain, decreased ROM, numbness or tingling or focal weakness Follow-up with Ortho hand over the next 5 to 7 days All questions answered and patient voiced understanding and agreement with testing and treatment plan. Xray interpretation: 3 views of right hand were obtained. Evidence of previous injury and irregularity and possible new nondisplaced cortex irregularity along 5th metacarpal shaft. Assessment: irregularity and malalignment of the 5th metacarpal shaft with possible acute on chronic cortex changes right hand. During this patient visit I have spent approximately 25 minutes out of 30 in counseling regarding treatment options and test results and coordinating care. Ana Durham DO REVIEW OF SYSTEMS: GENERAL: Well developed, well nourished. No acute distress PAIN: Pain 11/09 right CARDIOVASCULAR: Negative for chest pain, leg swelling and palpations. MSK: Positive for joint swelling SKIN: Negative for lesions, rash, itching, metal sensitivity NEURO: Trauma pt states hit door on 10/13/2021 ENDOCRINE: Negative for diabetic associated symptoms HEMATOLOGY: Negative for excessive bleeding, clots, bleeding disorders. documented in this encounter [facility] 10-13-2021 Miscellaneous Notes Refill(s) Requested: Pending Prescriptions Disp Refills MIRTAZAPINE 15 MG TABLET 30 tablet 0 Sig: TAKE 1 TABLET BY MOUTH DAILY AT BEDTIME YAEL: Yes ALLERGIES No Known Allergies (home) [phone] (cell) Last Office Visit Date: 09/11/2021 Last [facility] Health Visit: Visit date not found Future Appointment: Visit date not found The patients preferred pharmacy has been captured for this encounter? yes Request is for script(s) to be escript to pharmacy. Denise Méndez LPN documented in this encounter [facility] 10-02-2021 Miscellaneous Notes Referral submitted to [facility] Contact Center ([phone]). They will contact the patient to schedule. Confirmation number: [id number] Initial consult Gastro Prefer Dr. Mason R11.2 Nausea vomiting [employer] Patient given number to call GI Radha documented in this encounter [facility] 08-28-2021 Instructions Jose Miguel Davison MD - 08/28/2021 4:14 PM EDT Continue dicyclomine as prescribed. Follow up as needed if not improving. documented in this encounter [facility] 08-28-2021 History of Present illness Narrative Images from the original note were not included. [facility] [place] [address] [place] [address] Date of Evaluation: 08/28/2021 Patient Name: Christian Danielson : 2000 Chief Complaint: Patient presents with: GI Upset Nursing Intake: Nursing Notes: Melissa Palomo LPN 08/28/2021 3:31 PM Signed Pt having nausea vomiting x times/week. No diarrhea. Staying well hydrated. N/V occurs after eating, decreased appetite. Pt started Bentyl 3 days ago. Symptoms occurring approx 1 week. Pt also having difficulty sleeping. Pt taking Remeron but not working. Pt taking OTC med from [facility] which has helped. Melissa Palomo LPN Subjective Mr. Danielson is a 21 year old male who presents with the following complaint(s): Recurrent abdominal pain, nausea. HPI Patient reports nausea and and abdominal discomfort have returned for about the past week. The past day or 2 have been a little better. Not much pain, mostly nausea and decreased appetite. No bowel or bladder changes. Restarted Bentyl 2 days ago, thinks this may be working. Denies recurrent THC use. Is going through significant stress due to a legal concern. Review of Systems Constitutional: Positive for appetite change. Negative for chills, fatigue and fever. HENT: Negative for congestion, rhinorrhea and sore throat. Respiratory: Negative for cough and shortness of breath. Cardiovascular: Negative for chest pain and leg swelling. Gastrointestinal: Positive for nausea. Negative for abdominal pain, constipation, diarrhea and vomiting. Genitourinary: Negative for dysuria, frequency and urgency. Musculoskeletal: Negative for arthralgias and myalgias. Skin: Negative for color change and rash. Neurological: Negative for dizziness, light-headedness and headaches. Psychiatric/Behavioral: Negative for dysphoric mood and sleep disturbance. PAST MEDICAL HISTORY Diagnosis Date Concussion x2 Convergence insufficiency GERD (gastroesophageal reflux disease) H. pylori infection Insomnia PAST SURGICAL HISTORY Procedure Laterality Date TONSILLECTOMY HX FAMILY HISTORY Adopted: Yes Problem Relation Age of Onset No Known Problems Mother No Known Problems Father No Known Problems Brother No Known Problems Brother No Known Problems Maternal Grandmother No Known Problems Maternal Grandfather No Known Problems Paternal Grandmother No Known Problems Paternal Grandfather Social History Tobacco Use Smoking status: Never Smoker Smokeless tobacco: Never Used Vaping Use Vaping Use: Former Substances: Nicotine Devices: Disposable Substance Use Topics Alcohol use: Not Currently Drug use: Not Currently Types: Marijuana Comment: stopped 04/24/21 Current Outpatient Medications Medication Sig Dispense Refill mirtazapine (REMERON) 15 mg tablet Take 1 tablet by mouth daily at bedtime. 30 tablet 0 ondansetron orally disintegrating (ZOFRAN ODT) 4 mg disintegrating tablet Take 1 tablet by mouth every 8 hours as needed for nausea/vomiting. 30 tablet 0 dicyclomine (BENTYL) 20 mg tablet Take 1 tablet by mouth before meals and at bedtime. 90 tablet 0 No current facility-administered medications for this visit. I have confirmed and edited as necessary the chief complaint, medications, past medical, family and social histories obtained by others. Objective BP 100/62 Pulse 108 Ht 6' 3 (1.91m) Wt 163 lb 11.2 oz (74.3kg) SpO2 99% BMI 20.46 kg/(m^2). Physical Exam Vitals and nursing note reviewed. Constitutional: General: He is not in acute distress. Appearance: Normal appearance. He is not ill-appearing. Pulmonary: Effort: Pulmonary effort is normal. No respiratory distress. Abdominal: General: Abdomen is flat. There is no distension. Palpations: Abdomen is soft. There is no mass. Tenderness: There is no abdominal tenderness. Neurological: General: No focal deficit present. Mental Status: He is alert. Mental status is at baseline. Data Reviewed: No new labs ASSESSMENT/PLAN: 1. Nausea and vomiting, unspecified vomiting type - ICD9: 787.01, ICD10: R11.2 (primary diagnosis) Suspect stress related transient worsening of symptoms, seems to be doing better on the dicyclomine the past couple days, so we will continue this. Follow-up if symptoms worsen again. - DICYCLOMINE 20 MG TABLET 2. Abdominal pain, unspecified abdominal location - ICD9: 789.00, ICD10: R10.9 - DICYCLOMINE 20 MG TABLET Jose Miguel Davison MD Return if symptoms worsen or fail to improve. Discussed the above with the patient using shared decision making. The patient is in agreement with the diagnostic and treatment plans. Medical Decision Making: Problems: Low: Stable chronic illness Risk: Moderate: Drug management Medical Decision Making Level: 3 - Low documented in this encounter [facility] 08-28-2021 Nurse Note Pt having nausea vomiting x times/week. No diarrhea. Staying well hydrated. N/V occurs after eating, decreased appetite. Pt started Bentyl 3 days ago. Symptoms occurring approx 1 week. Pt also having difficulty sleeping. Pt taking Remeron but not working. Pt taking OTC med from [facility] which has helped. Melissa Palomo LPN documented in this encounter [facility] 07-30-2021 Instructions Jose Miguel Davison MD - 07/30/2021 1:44 PM EDT Follow up as needed for new or worsening symptoms or if not improving over the next few days. documented in this encounter [facility] 07-30-2021 History of Present illness Narrative Images from the original note were not included. [facility] [address] [place] [address] Date of Evaluation: 07/30/2021 Patient Name: Christian Danielson : 2000 Chief Complaint: Patient presents with: Headache Dizziness Nursing Intake: Nursing Notes: Brooklynn Lawson MA 07/30/2021 1:43 PM Addendum Christian Danielson is a 21 year old male who presents ambulatory accompanied by mother with complaint of Headache and Dizziness Pt mother state pt had a head injury over the weekend at [facility] while visiting his brother. Pt now has a bump on the top of the head, and new onset of dizziness upon standing. Headache Assessment Onset date of pain: 07/27/21 Pain location: Head Sudden onset or gradual: Sudden Worse at certain time of day: N/A Location: bilateral and top; parietal region. Severity: 7/10 Quality: Throbbing Frequency: occurs intermittently Radiating: No Associated symptoms include Vertigo and some tinitis. Changes in vision or behavior: No Alleviating factors: nothing Aggravating factors: N/A. Treatments tried: Nsaids and tylenol Taking them without temporary relief. ADLs : patient able to perform all 07/30/21 1311 BP: 117/72 BP Site: Right Arm BP Position: Sitting BP Cuff Size: Regular Adult Pulse: 90 Temp: 36.8 C (98.2 F) TempSrc: Temporal SpO2: 99% Weight: 73.4 kg (161 lb 12.8 oz) Subjective Mr. Danielson is a 21 year old male who presents with the following complaint(s): Headache. HPI Review of Systems Constitutional: Negative for chills, fatigue and fever. HENT: Negative for congestion, rhinorrhea and sore throat. Eyes: Negative for visual disturbance. Respiratory: Negative for cough and shortness of breath. Cardiovascular: Negative for chest pain and leg swelling. Gastrointestinal: Negative for abdominal pain, constipation, diarrhea and nausea. Genitourinary: Negative for dysuria, frequency and urgency. Musculoskeletal: Negative for arthralgias and myalgias. Skin: Negative for color change and rash. Neurological: Positive for headaches. Negative for dizziness and light-headedness. Psychiatric/Behavioral: Negative for dysphoric mood and sleep disturbance. PAST MEDICAL HISTORY Diagnosis Date Concussion x2 Convergence insufficiency GERD (gastroesophageal reflux disease) H. pylori infection Insomnia PAST SURGICAL HISTORY Procedure Laterality Date TONSILLECTOMY HX FAMILY HISTORY Adopted: Yes Problem Relation Age of Onset No Known Problems Mother No Known Problems Father No Known Problems Brother No Known Problems Brother No Known Problems Maternal Grandmother No Known Problems Maternal Grandfather No Known Problems Paternal Grandmother No Known Problems Paternal Grandfather Social History Tobacco Use Smoking status: Never Smoker Smokeless tobacco: Never Used Vaping Use Vaping Use: Former Substances: Nicotine Devices: Disposable Substance Use Topics Alcohol use: Not Currently Drug use: Not Currently Types: Marijuana Comment: stopped 04/24/21 Current Outpatient Medications Medication Sig Dispense Refill amphetamine-dextroamphetamine XR (ADDERALL XR) 20 mg 24 hr capsule Take 1 capsule by mouth once daily for 30 days. 30 capsule 0 dicyclomine (BENTYL) 10 mg capsule Take 1 capsule by mouth before meals and at bedtime. (Patient not taking: Reported on 07/30/2021 ) 90 capsule 0 mirtazapine (REMERON) 15 mg tablet Take 1 tablet by mouth daily at bedtime. (Patient not taking: Reported on 07/30/2021 ) 90 tablet 1 No current facility-administered medications for this visit. I have confirmed and edited as necessary the chief complaint, medications, past medical, family and social histories obtained by others. Objective BP 117/72 Pulse 90 Temp (Src) 98.2 (Temporal) Wt 161 lb 12.8 oz (73.4kg) SpO2 99% Physical Exam Vitals and nursing note reviewed. Constitutional: General: He is not in acute distress. Appearance: Normal appearance. He is not ill-appearing. HENT: Head: Normocephalic and atraumatic. Eyes: General: No scleral icterus. Extraocular Movements: Extraocular movements intact. Conjunctiva/sclera: Conjunctivae normal. Cardiovascular: Rate and Rhythm: Normal rate and regular rhythm. Pulses: Normal pulses. Heart sounds: Normal heart sounds. No murmur heard. No friction rub. No gallop. Pulmonary: Effort: No respiratory distress. Musculoskeletal: Cervical back: Normal range of motion and neck supple. Skin: Capillary Refill: Capillary refill takes less than 2 seconds. Neurological: General: No focal deficit present. Mental Status: He is alert and oriented to person, place, and time. Mental status is at baseline. Cranial Nerves: No cranial nerve deficit. Sensory: No sensory deficit. Motor: No weakness. Coordination: Coordination normal. Gait: Gait normal. Psychiatric: Mood and Affect: Mood normal. Thought Content: Thought content normal. Judgment: Judgment normal. Data Reviewed: No new labs ASSESSMENT/PLAN: 1. Injury of head, initial encounter - ICD9: 959.01, ICD10: S09.90XA Normal exam today. Minimal symptoms. Counseled on signs and symptoms for which to monitor, follow-up if any worsening or if symptoms are provoked by mental or physical exertion Jose Miguel Davison MD Return if symptoms worsen or fail to improve. Discussed the above with the patient using shared decision making. The patient is in agreement with the diagnostic and treatment plans. Medical Decision Making: Problems: Low: Acute, uncomplicated illness or injury Risk: Low: Low risk from testing/treatment Medical Decision Making Level: 3 - Low documented in this encounter [facility] 07-30-2021 Nurse Note Christian Danielson is a 21 year old male who presents ambulatory accompanied by mother with complaint of Headache and Dizziness Pt mother state pt had a head injury over the weekend at [facility] while visiting his brother. Pt now has a bump on the top of the head, and new onset of dizziness upon standing. Headache Assessment Onset date of pain: 07/27/21 Pain location: Head Sudden onset or gradual: Sudden Worse at certain time of day: N/A Location: bilateral and top; parietal region. Severity: 7/10 Quality: Throbbing Frequency: occurs intermittently Radiating: No Associated symptoms include Vertigo and some tinitis. Changes in vision or behavior: No Alleviating factors: nothing Aggravating factors: N/A. Treatments tried: Nsaids and tylenol Taking them without temporary relief. ADLs : patient able to perform all 07/30/21 1311 BP: 117/72 BP Site: Right Arm BP Position: Sitting BP Cuff Size: Regular Adult Pulse: 90 Temp: 36.8 C (98.2 F) TempSrc: Temporal SpO2: 99% Weight: 73.4 kg (161 lb 12.8 oz) documented in this encounter [facility] 11-22-2020 Note HNO ID: [id number] Author: Brooke Foster MD Service: ? Author Type: Physician Type: Progress Notes Filed: 11/22/2020 4:55 PM Note Text: This note was created using Plate[employer]. Subjective Christian Danielson is an 20 year old male who presents for Nausea AND Vomiting. Persistent N/V, epigastric abd pain for 3 weeks. Neg HP. Always hungry but vomits after meals. He was able to keep some rice down Last vomited 2 days ago Hx of +HP and motility issue EGD in 5th grade Poor sleep due to hunger. Stays up all night. Tried melatonin and it helps No THC. vaping occasional Works at [employer]. Able to stay hydrated Ongoing stress is likely per mother even though pt denies anxiety Going to senior year Living in the basement of grandparents who are sick and on hospice abd pain with N/V has been a recurrent issue: 2017 GI appt reads: Abdominal pain and vomiting Going on for several weeks now. This is his third round with this August 2013 had sustained symptoms: Egd/colon done ([facility]): Found h pylori, triple treatment (Prevacid, amox, biaxin) Then April 2016: Better on Augmentin, and then Flagyl for blastocystis. Now in August 2016 symptoms recurred: Review of Systems Constitutional: Negative. Respiratory: Negative. Gastrointestinal: Positive for abdominal pain, nausea and vomiting. Negative for abdominal distention, constipation and diarrhea. Genitourinary: Negative. Psychiatric/Behavioral: Positive for sleep disturbance. Negative for dysphoric mood. Objective BP 136/82 Pulse 89 Temp 36.4 ?C (97.6 ?F) Ht 188 cm (6' 2) Wt 76.9 kg (169 lb 9.6 oz) SpO2 98% BMI 21.78 kg/m? Physical Exam Vitals and nursing note reviewed. Constitutional: Appearance: Normal appearance. HENT: Head: Normocephalic. Cardiovascular: Rate and Rhythm: Normal rate and regular rhythm. Heart sounds: Normal heart sounds. No murmur heard. Pulmonary: Effort: Pulmonary effort is normal. Breath sounds: Normal breath sounds. No wheezing. Abdominal: General: Abdomen is flat. Bowel sounds are normal. Palpations: Abdomen is soft. Tenderness: There is abdominal tenderness in the epigastric area. Musculoskeletal: General: No swelling. Cervical back: Neck supple. Skin: General: Skin is warm and dry. Neurological: Mental Status: He is alert and oriented to person, place, and time. Mental status is at baseline. Psychiatric: Mood and Affect: Mood normal. Judgment: Judgment normal. Assessment and Plan ASSESSMENT/PLAN: 1. Epigastric pain - ICD9: 789.06, ICD10: R10.13 (primary diagnosis) Differential Diagnosis includes PUD, Gastritis, IBS and anxiety Continue PPI. Refer to GI. Get labs if no better by next week Start zofran and try to increase food intake - CONSULT TO GASTROENTEROLOGY - COMP METABOLIC PANEL - CBC + DIFF - LIPASE BLD 2. Nausea - ICD9: 787.02, ICD10: R11.0 Vomiting after meals. No V in the last 24 hrs with bland food. Continue similar diet Take zofran scheduled and consider reglan if no resolution since he has hx of motility issues - ONDANSETRON 4 MG DISINTEGRATING TABLET - CONSULT TO GASTROENTEROLOGY - BUSPIRONE 5 MG TABLET 3. Vitamin D deficiency - ICD9: 268.9, ICD10: E55.9 - VITAMIN D 25 HYDROXY 4. Low serum vitamin B12 - ICD9: 266.2, ICD10: E53.8 - VITAMIN B12 BLOOD 5. Sleep disturbance - ICD9: 780.50, ICD10: G47.9 With pain and hunger Restart melatonin Brooke Foster MD [facility] 11-07-2020 Note HNO ID: [id number] Author: Jose Miguel Davison MD Service: ? Author Type: Physician Type: Progress Notes Filed: 11/18/2020 2:08 PM Note Text: November 07, 2020 Subjective HPI: Christian Danielson is a 20 year old male who present today for possible h/ pylori infection. Accompanied by father. Has had 2 previous episode, couple years ago (availabel in care everywhere) Now having nausea, emesis occasionally after eating, epigastric pain, similar to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 give IM or SQ if no IV access +++ ondansetron (Zofran) injection 4 mg(Linked Group 3) 4 mg, IntraVENous, Every 6 hours PRN, nausea, vomiting, Starting on 09/11/23 at 1909, 1st Line. Give IV if patient is unable to take orally. If inadequate response within 60 minutes, proceed to next-line agent or contact provider if no further options ordered. ondansetron ODT (Zofran-ODT) disintegrating tablet 4 mg(Linked Group 3) 4 mg, Oral, Every 8 hours PRN, nausea, vomiting, Starting on 09/11/23 at 1909, 1st Line. If inadequate response within 60 minutes, proceed to next-line agent or contact provider if no further options ordered. Patient should allow tablet to dissolve on tongue. Do not remove from blister pack until just before administering. oxyCODONE (Roxicodone) immediate release tablet 10 mg (CANCELED) 10 mg, Oral, Every 6 hours PRN, severe pain (7-10), Starting on 09/11/23 at 1909 0528 (Given - Provider: Lena Obregon RN)1029 (Given - Provider: Esperanza Raza, NORA) oxyCODONE (Roxicodone) immediate release tablet 10 mg (CANCELED) 10 mg, Oral, Every 4 hours PRN, severe pain (7-10), Starting on Wed09/12/23 at 1430 1428 (Given - Provider: Esperanza Raza, NORA)2110 (Given - Provider: Lena Obregon, NORA) 0613 (Given - Provider: Lena Obregon, NORA) oxyCODONE (Roxicodone) immediate release tablet 2.5 mg(Linked Group 4) 2.5 mg, Oral, Every 6 hours PRN, moderate pain (4-6), Starting on Wed09/14/23 at 0745 oxyCODONE (Roxicodone) immediate release tablet 5 mg (CANCELED) 5 mg, Oral, Every 4 hours PRN, severe pain (7-10), Starting on Wed09/13/23 at 0825 1441 (Given - Provider: Dianelys Davidson RN)2030 (Given - Provider: Katherine Lainez RN) oxyCODONE (Roxicodone) immediate release tablet 5 mg(Linked Group 4) 5 mg, Oral, Every 6 hours PRN, severe pain (7-10), Starting on Wed09/14/23 at 0745 polyethylene glycol (PEG) 3350 (Miralax) packet 17 g 17 g, Oral, Daily PRN, constipation, Starting on Wed09/11/23 at 1909, 1st line for treatment of constipation - give scheduled if no bowel movement in past 24 hours. 0828 (Given - Provider: Dianelys Davidson RN) Linked Groups Order Group 1: acetaminophen (Tylenol) tablet 1,000 mgJump to med 1,000 mg, Oral, Every 8 hours, First dose (after last modification) on Wed09/12/23 at 2000, Maximum dose of acetaminophen is 4000 mg from all sources in 24 hours. Or acetaminophen (Tylenol) suppository 650 mg (CANCELED) 650 mg, Rectal, Every 8 hours, First dose (after last modification) on Wed09/12/23 at 2000, Administer if oral route cannot be used. Maximum dose of acetaminophen is 4000 mg from all sources in 24 hours. Group 2: vancomycin (Vancocin) 1750 mg in NS 500 mL IVPB (premix) (COMPLETED) 1,750 mg, IntraVENous, Administer over 120 Minutes, Once, On 09/11/23 at 2100, For 1 dose, premix bag, Suspected Indication (Select all that apply): Bone and Join Infection Followed by vancomycin IVPB 1250 mg in 250 mL NS (premix) (CANCELED)Jump to med 1,250 mg, IntraVENous, Administer over 90 Minutes, Every 12 hours, First dose on Wed09/12/23 at 0900, premix bag, Suspected Indication (Select all that apply): Bone and Join Infection Group 3: ondansetron ODT (Zofran-ODT) disintegrating tablet 4 mgJump to med 4 mg, Oral, Every 8 hours PRN, nausea, vomiting, Starting on Wed09/11/23 at 1909, 1st Line. If inadequate response within 60 minutes, proceed to next-line agent or contact provider if no further options ordered. Patient should allow tablet to dissolve on tongue. Do not remove from blister pack until just before administering. Or ondansetron (Zofran) injection 4 mgJump to med 4 mg, IntraVENous, Every 6 hours PRN, nausea, vomiting, Starting on Wed09/11/23 at 1909, 1st Line. Give IV if patient is unable to take orally. If inadequate response within 60 minutes, proceed to next-line agent or contact provider if no further options ordered. Group 4: oxyCODONE (Roxicodone) immediate release tablet 2.5 mgJump to med 2.5 mg, Oral, Every 6 hours PRN, moderate pain (4-6), Starting on Wed09/14/23 at 0745 Or oxyCODONE (Roxicodone) immediate release tablet 5 mgJump to med 5 mg, Oral, Every 6 hours PRN, severe pain (7-10), Starting on Wed09/14/23 at 0745 FOR RECORDS PERTAINING TO PATIENTS WHO ARE OR HAVE BEEN ENROLLED IN A CHEMICAL DEPENDENCY/SUBSTANCEABUSE PROGRAM, SOME INFORMATION MAY BE OMITTED. This clinical summary was aggregated from multiple sources. Caution should be exercised in using it in the provision of clinical care. This summary normalizes information from multiple sources, and as a consequence, information in this document may materially change the coding, format and clinical context of patient data. In addition, data may be omitted in some cases. CLINICAL DECISIONS SHOULD BE BASED ON THE PRIMARY CLINICAL RECORDS. [employer] [facility]. provides no warranty or guarantee of the accuracy or completeness of information in this document.
[2024-10-28] MEDS: Ondansetron 4 MG/2 ML Vial IV (19:23)
[2024-10-28] MEDS: Morphine 4 MG/ML Syringe IV (19:24)
[2024-10-28] MEDS: 0.9% Normal Saline (1000mL) 1,000 ML 999 ML IV (19:24)
[2024-10-28] MEDS: Cefazolin 2 GM in 0.9% Normal Saline (100mL Bag) 100 ML IV (19:49)
[2024-10-28] MEDS: Lidocaine 1% (20 ml mdv) 20 ML Vial 10 ML INFILT (19:53)
[2024-10-28 20:25] VITALS: BP 110/80; PULSE 70; RESP 18; O2SAT 98
[2024-10-28 21:25] VITALS: BP 110/80; PULSE 70; RESP 18; TEMP 36.3; O2SAT 98
== END 2024-10-28 21:39 | disposition home or self-care (01) ==
PROVIDERS: Emergency Provider Emergency Medicine; Visit Provider Emergency Medicine
DX: S91.312A Laceration without foreign body, left foot, initial encounter (principal); X58.XXXA Exposure to other specified factors, initial encounter
CPT/HCPCS: 12002; 73630; 96361; 96374; 96375; 96376; 99285; A4216; J2405